=== PATIENT | male | born 1955 | race Caucasian/White ===

== ENCOUNTER 2016-12-18 17:44 | Observation (INO) | payer OTHER ==
[2016-12-18] VITALS (7 sets, daily range): BP systolic 130–154; BP diastolic 68–98; PULSE 92–104; RESP 18–20; TEMP 97.9–99.1; O2SAT 91–97
[~2016-12-18] VITALS: Ht 182.9 cm; Wt 68.2 kg
[~2016-12-18 17:44] MED LIST: BACT2OIN TOP; CLIN150 PO; HALO1TAB25 PO; LITH450T PO; NORT50CA PO
[2016-12-18] MEDS ORDERED: methylPREDNISolone SOD SUCC 125 MG/2 ML VIAL IVP ONE (19:30)
[2016-12-18] MEDS ORDERED: SODIUM CHLORIDE 0.9% FLUSH 10 ML FLUSH IVF PRN (19:30)
[2016-12-18 19:53] LABS: AUTOMATED NEUTROPHIL # 4.8 TH/MM3 (1.8-7.7); BASOPHIL # 0.1 TH/MM3 (0-0.2); BASOPHIL % 0.7 % (0.0-2.0); EOSINOPHIL # 0.1 TH/MM3 (0-0.4); EOSINOPHIL % 1.3 % (0.0-4.0); HEMATOCRIT 44.2 % (39.0-51.0); HEMO FLAGS DIFF FINAL; LYMPH % 28.8 % (9.0-44.0); LYMPHOCYTE # 2.3 TH/MM3 (1.0-4.8); MEAN CELL VOLUME 91.6 FL (80.0-100.0); MEAN CORPUSCULAR HEMOGLOBIN 31.5 PG (27.0-34.0); MEAN CORPUSCULAR HGB CONC 34.4 % (32.0-36.0); MONO % 9.1 % (0.0-8.0); NEUT % 60.1 % (16.0-70.0); PLATELET COUNT 187 TH/MM3 (150-450); RED BLOOD COUNT 4.82 MIL/MM3 (4.50-5.90); RED CELL DISTRIBUTION WIDTH 13.2 % (11.6-17.2)
--- NOTE | 2016-12-18 19:53 | PD ---
HPI Chief Complaint: Chest Pain Time Seen by Provider: 19:12 Travel History International Travel<30 days: No Contact w/Intl Traveler<30days: No Traveled to known affect area: No History of Present Illness HPI He shouldn't is a 61-year-old male who comes in complaining of chest pain, shortness of breath, cough for the past 3 weeks. Says he came in tonight because he is tired of it. He says the pain is in the middle of his chest and spreads out towards the sides. He says that the pain comes on randomly and does not seem to be related to any specific action. He says the same occurs with the shortness of breath. He reports a cough that is productive of phlegm. He says that he felt like he had a fever yesterday, but he did not take his temperature. He denies any leg swelling, but says he has chronic pain in his legs. He uses an inhaler at home, but says this has not really been helping. PFSH Past Medical History Bipolar Disorder: Yes Cardiovascular Problems: Yes COPD: Yes Diminished Hearing: Yes ([facility]) Past Surgical History Surgical History: No Previous Surgery Social History Alcohol Use: No Tobacco Use: Yes (2 PPD) Substance Use: No Allergies-Medications (Allergen,Severity, Reaction): Coded Allergies: No Known Allergies (Unverified , 12/18/16) Reported Meds & Prescriptions Reported Meds & Active Scripts Active Mupirocin 2% Oint (22 gm) (Mupirocin) 2 % Oin 1 Applic TOP BID 14 Days APPLY TO AFFECTED AREA(S) Cleocin (Clindamycin HCl) 150 Mg Cap 2 Tab PO QID Reported Nortriptyline Hcl (Nortriptyline HCl) 50 Mg Cap 50 Mg PO HS Haldol (Haloperidol) 2 Mg Tab 2 Mg PO QID PRN Eskalith 450 Mg Tab Cr ([place] Carbonate) 450 Mg Tabcr 450 Mg PO QID Review of Systems Except as stated in HPI: all other systems reviewed are Neg General / Constitutional: Positive: Fever, No: Chills HENT: No: Headaches, Lightheadedness Cardiovascular: Positive: Chest Pain or Discomfort Respiratory: Positive: Cough, Shortness of Breath, Wheezing Gastrointestinal: No: Nausea, Vomiting, Abdominal Pain Musculoskeletal: Positive: Pain, No: Edema Skin: No Rash, No Change in Pigmentation Neurologic: No: Weakness, Dizziness Physical Exam Narrative GENERAL: Awake and alert, in no acute distress. SKIN: Focused skin assessment warm/dry. HEAD: Atraumatic. Normocephalic. EYES: Pupils equal and round. No scleral icterus. ENT: Mucous membranes pink and moist. NECK: Trachea midline. No JVD. CARDIOVASCULAR: Regular rate and rhythm. No murmur appreciated. RESPIRATORY: No accessory muscle use. Breath sounds equal bilaterally. Wheezing and coarse breath sounds throughout both lungs. GASTROINTESTINAL: Abdomen soft, non-tender, nondistended. MUSCULOSKELETAL: No obvious deformities. No clubbing. No cyanosis. No edema. NEUROLOGICAL: Awake and alert. No obvious cranial nerve deficits. Motor grossly within normal limits. Normal speech. PSYCHIATRIC: Appropriate mood and affect; insight and judgment normal. Data Data Last Documented VS Vital Signs Date Time Temp Pulse Resp B/P Pulse Ox O2 Delivery O2 Flow Rate FiO2 12/18/16 20:30 92 18 132/74 95 Room Air 12/18/16 17:47 99.1 Orders Electrocardiogram (12/18/16 17:54) Complete Blood Count With Diff (12/18/16 17:54) Basic Metabolic Panel (Bmp) (12/18/16 17:54) Ckmb (Isoenzyme) Profile (12/18/16 17:54) Troponin I (12/18/16 17:54) B-Type Natriuretic Peptide (12/18/16 19:19) Act Partial Throm Time (Ptt) (12/18/16 19:19) Prothrombin Time / Inr (Pt) (12/18/16 19:19) Iv Access Insert/Monitor (12/18/16 19:19) Ecg Monitoring (12/18/16 19:19) Oximetry (12/18/16 19:19) Oxygen Administration (12/18/16 19:19) Chest, Pa & Lat (12/18/16 19:19) Sodium Chloride 0.9% Flush (Ns Flush) (12/18/16 19:30) Methylprednisolone So Succ Inj (Solumedr (12/18/16 19:30) Albuterol-Ipratropium Neb (Duoneb Neb) (12/18/16 19:30) CKMB (12/18/16 19:35) CKMB% (12/18/16 19:35) Diet Regular Basic (12/19/16 Breakfast) Vital Signs (Adult) NEEL.Q4H (12/18/16 20:24) Resp Oxygen Link C Titrat 1-4 L (12/18/16 ) Troponin I (12/19/16 02:00) Troponin I (12/19/16 08:00) Methylprednisolone So Succ Inj (Solumedr (12/19/16 02:00) Albuterol-Ipratropium Neb (Duoneb Neb) (12/19/16 00:00) Albuterol Neb (Albuterol Neb) (12/18/16 20:30) Acetaminophen (Tylenol) (12/18/16 20:30) Ondansetron Inj (Zofran Inj) (12/18/16 20:30) Levofloxacin 750 Mg Premix Inj (Levaquin (12/18/16 20:45) Admit Order (Ed Use Only) (12/18/16 ) Labs Laboratory Tests Test 12/18/16 19:35 White Blood Count 8.0 TH/MM3 Red Blood Count 4.82 MIL/MM3 Hemoglobin 15.2 GM/DL Hematocrit 44.2 % Mean Corpuscular Volume 91.6 FL Mean Corpuscular Hemoglobin 31.5 PG Mean Corpuscular Hemoglobin 34.4 % Concent Red Cell Distribution Width 13.2 % Platelet Count 187 TH/MM3 Mean Platelet Volume 8.3 FL Neutrophils (%) (Auto) 60.1 % Lymphocytes (%) (Auto) 28.8 % Monocytes (%) (Auto) 9.1 % Eosinophils (%) (Auto) 1.3 % Basophils (%) (Auto) 0.7 % Neutrophils # (Auto) 4.8 TH/MM3 Lymphocytes # (Auto) 2.3 TH/MM3 Monocytes # (Auto) 0.7 TH/MM3 Eosinophils # (Auto) 0.1 TH/MM3 Basophils # (Auto) 0.1 TH/MM3 CBC Comment DIFF FINAL Differential Comment Prothrombin Time 12.2 SEC Prothromb Time International 1.1 RATIO Ratio Activated Partial 32.4 SEC Thromboplast Time Sodium Level 140 MEQ/L Potassium Level 4.1 MEQ/L Chloride Level 104 MEQ/L Carbon Dioxide Level 29.3 MEQ/L Anion Gap 7 MEQ/L Blood Urea Nitrogen 13 MG/DL Creatinine 1.47 MG/DL Estimat Glomerular Filtration 49 ML/MIN Rate Random Glucose 78 MG/DL Calcium Level 9.3 MG/DL Total Creatine Kinase 235 U/L Creatine Kinase MB 6.1 NG/ML Troponin I LESS THAN 0.02 NG/ML B-Type Natriuretic Peptide 13 PG/ML MDM Medical Decision Making Medical Screen Exam Complete: Yes Emergency Medical Condition: Yes Medical Record Reviewed: Yes Interpretation(s) ECG shows sinus rhythm at 99, no ST elevation or depression. Incomplete right bundle-branch block. Differential Diagnosis COPD exacerbation versus pneumonia versus ACS Narrative Course Patient is a 61-year-old male comes in complaining of shortness of breath and chest pain. Exam shows coarse breath sounds throughout both lungs. IV established, labs sent. 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 Given 3 duo nebs as well as Solu-Medrol. Given aspirin. Labs show no acute abnormalities. Chest x-ray does show left-sided infiltrate. Patient given Levaquin. Patient admitted for further management. Diagnosis Primary Impression: COPD with acute exacerbation Additional Impressions: Chest pain Qualified Code: R07.9 - Chest pain, unspecified type Pneumonia Qualified Code: J18.1 - Pneumonia of left lower lobe due to infectious organism Admitting Information Admitting Physician Requests: Admit Kasey Davison MD Dec 18, 2016 19:53
[2016-12-18] MEDS: RESP: ALBUTEROL 2.5 MG/IPRATROPIUM 0.5 MG NEB (SCH) INH (20:07)
[2016-12-18 20:20] LABS: ANION GAP 7 MEQ/L (5-15); BICARBONATE 29.3 MEQ/L (21.0-32.0); BLOOD UREA NITROGEN 13 MG/DL (7-18); CHLORIDE 104 MEQ/L (98-107); GLOMERULAR FILTRATION RATE 49 ML/MIN (>89); POTASSIUM 4.1 MEQ/L (3.5-5.1); SODIUM (NA) 140 MEQ/L (136-145)
--- NOTE | 2016-12-18 20:20 | RADRPT ---
EXAM DATE/TIME: 12/18/2016 19:53 [facility] COMPARISON: No previous studies available for comparison. INDICATIONS : Cough and chest pain. MEDICAL HISTORY : smoker SURGICAL HISTORY : None. ENCOUNTER: Initial ACUITY: 1 day PAIN SCORE: 7/10 LOCATION: Bilateral upper chest FINDINGS: There is baseline hyperinflation consistent with COPD. There is patchy airspace infiltrate in the lef t lung base. No evidence of effusion. Cardiac contours are satisfactory. There is degenerative change and mild scoliosis in the spine. CONCLUSION: Emphysema. Left base infiltrate. Baldev Quiroz MD on December 18, 2016 at 20:18 Board Certified Radiologist. This report was verified electronically.
[2016-12-18 20:22] LABS: APTT (PATIENT) 32.4 SEC (24.3-30.1); INTERNATIONAL NORMALIZED RATIO 1.1 RATIO; PROTHROMBIN TIME - PATIENT 12.2 SEC (9.8-11.6)
[2016-12-18 20:24] LABS: CREATINE KINASE 235 U/L (39-308)
[2016-12-18] MEDS ORDERED: ACETAMINOPHEN 325 MG TAB PO PRN (20:30)
[2016-12-18] MEDS ORDERED: RESP: ALBUTEROL 1.25 MG/3 ML NEB (PRN) NEB (20:30)
[2016-12-18] MEDS ORDERED: ONDANSETRON HCL 4 MG/2 ML VIAL IV PUSH PRN (20:30)
[2016-12-18 20:36] LABS: CKMB 6.1 NG/ML (0.5-3.6)
[2016-12-18] MEDS ORDERED: LEVOFLOXACIN 750 MG PREMIX INJ 150 ML IV ONE (20:45)
--- NOTE | 2016-12-18 20:45 | HHI.HP ---
[facility] Service [facility] Primary Care Physician Delmy Booker M.D. Admission Diagnosis copd exacerbation Diagnoses: (1) COPD with acute exacerbation Diagnosis: Principal (2) Chest pain Diagnosis: Principal Chief Complaint: sob Travel History International Travel<30 Days: No Contact w/Intl Traveler <30 Da: No Traveled to Known Affected Are: No History of Present Illness patient is a 61 y/o male with history of COPD, chronic smoker and still smoking two packs a day, presented to ER with one week history of sob. he says that his sob has been getting worse. he had some dry cough with no reported fever or chills. he's also complaining of some epigastric chest pain with some radiation to both sides of the chest.he says that his chest pain is worse with the cough.he had some nausea and dizziness earlier.after receiving neb treatment he said that he was feeling better. Review of Systems Constitutional: COMPLAINS OF: Dizziness, DENIES: Fever, Weight loss, Chills, Night Sweats Eyes: DENIES: Blurred vision, Diplopia, Vision loss, Double Vision Ears, nose, mouth, throat: DENIES: Tinnitus, Vertigo, Throat pain, Epistaxis Respiratory: COMPLAINS OF: Wheezing, Shortness of breath, DENIES: Apneas, Cough, Snoring, Hemoptysis, Sputum production Cardiovascular: COMPLAINS OF: Chest pain, DENIES: Palpitations, Syncope, Dyspnea on Exertion, PND, Lower Extremity Edema, Orthopnea, Claudication Gastrointestinal: COMPLAINS OF: Nausea, DENIES: Abdominal pain, Black stools, Bloody stools, Constipation, Diarrhea, Vomiting, Difficulty Swallowing, Anorexia Genitourinary: DENIES: Urinary frequency, Urgency, Hematuria, Dysuria Musculoskeletal: DENIES: Joint pain, Muscle aches, Stiffness, Joint Swelling Integumentary: DENIES: Rash Neurologic: DENIES: Abnormal gait, Headache, Localized weakness, Paresthesias, Seizures, Speech Problems, Tremor, Poor Balance Psychiatric: DENIES: Anxiety, Confusion, Mood changes, Depression, Hallucinations, Agitation, Suicidal Ideation, Homicidal Ideation, Delusions Past Family Social History Past Medical History COPD bipolar disorder Past Surgical History none Reported Medications Mupirocin 2% Oint (22 gm) (Mupirocin) 2 % Oin 1 Applic TOP BID 14 Days APPLY TO AFFECTED AREA(S) Cleocin (Clindamycin HCl) 150 Mg Cap 2 Tab PO QID Nortriptyline Hcl (Nortriptyline HCl) 50 Mg Cap 50 Mg PO HS Haldol (Haloperidol) 2 Mg Tab 2 Mg PO QID PRN Eskalith 450 Mg Tab Cr ([place] Carbonate) 450 Mg Tabcr 450 Mg PO QID Allergies: Coded Allergies: No Known Allergies (Unverified , 12/18/16) Active Ordered Medications Current Medications Sodium Chloride (NS Flush) 2 ml UNSCH PRN IVF FLUSH AFTER USING IV ACCESS; Start 12/18/16 at 19:30 Methylprednisolone Sodium Succinate (SoluMEDROL INJ) 125 mg ONCE ONCE IVP Last administered on 12/18/16 19:40; Start 12/18/16 at 19:30; Stop 12/18/16 at 19: 31; Status DC Albuterol/ Ipratropium (Duoneb Neb) 1 ampule Q15M INH Last administered on 20:07; Start 12/18/16 at 19:30; Stop 12/18/16 at 20:01; Status DC Family History heart disease in brother. Social History smokes two packs a day- doesn't drink. Physical Exam Vital Signs Vital Signs Date Time Temp Pulse Resp B/P Pulse Ox O2 Delivery O2 Flow Rate FiO2 12/18/16 19:29 96 Room Air 12/18/16 19:29 Room Air 12/18/16 17:47 99.1 104 20 154/93 93 Room Air Physical Exam GENERAL: with some sob and wheezing. SKIN: No rashes, ecchymoses or lesions. Cool and dry. HEAD: Atraumatic. Normocephalic. No temporal or scalp tenderness. EYES: Pupils equal round and reactive. Extraocular motions intact. No scleral icterus. No injection or drainage. ENT: Nose without bleeding, purulent drainage or septal hematoma. Throat without erythema, tonsillar hypertrophy or exudate. Uvula midline. Airway patent. NECK: Trachea midline. No JVD or lymphadenopathy. Supple, nontender, no meningeal signs. CARDIOVASCULAR: Regular rate and rhythm without murmurs, gallops, or rubs. RESPIRATORY: bilateral wheezing with prolonged expiration. GASTROINTESTINAL: Abdomen soft, non-tender, nondistended. No hepato-splenomegaly , or palpable masses. No guarding. MUSCULOSKELETAL: Extremities without clubbing, cyanosis, or edema. No joint tenderness, effusion, or edema noted. No calf tenderness. Negative Homans sign bilaterally. NEUROLOGICAL: Awake and alert. Cranial nerves II through XII intact. Motor and sensory grossly within normal limits. Five out of 5 muscle strength in all muscle groups. Normal speech. Laboratory Laboratory Tests Test 12/18/16 19:35 White Blood Count 8.0 Red Blood Count 4.82 Hemoglobin 15.2 Hematocrit 44.2 Mean Corpuscular Volume 91.6 Mean Corpuscular Hemoglobin 31.5 Mean Corpuscular Hemoglobin 34.4 Concent Red Cell Distribution Width 13.2 Platelet Count 187 Mean Platelet Volume 8.3 Neutrophils (%) (Auto) 60.1 Lymphocytes (%) (Auto) 28.8 Monocytes (%) (Auto) 9.1 Eosinophils (%) (Auto) 1.3 Basophils (%) (Auto) 0.7 Neutrophils # (Auto) 4.8 Lymphocytes # (Auto) 2.3 Monocytes # (Auto) 0.7 Eosinophils # (Auto) 0.1 Basophils # (Auto) 0.1 CBC Comment DIFF FINAL Differential Comment Prothrombin Time 12.2 Prothromb Time International 1.1 Ratio Activated Partial 32.4 Thromboplast Time Sodium Level 140 Potassium Level 4.1 Chloride Level 104 Carbon Dioxide Level 29.3 Anion Gap 7 Blood Urea Nitrogen 13 Creatinine 1.47 Estimat Glomerular Filtration 49 Rate Random Glucose 78 Calcium Level 9.3 Result Diagram: 12/18/16193412/18/161934 Imaging EKG; sinus arrhythmia and incomplete RBBB CXR; emphysema with left base infiltrate Assessment and Plan Assessment and Plan A/P - acute exacerbation of COPD/ LLL pneumonia ( community-acquired) continue with neb treatment and IV steroid- start IV antibiotics- keep on oxygen to keep O2 sat > 90%- counselled on smoking cessation. -chest pain- likely due to COPD/ cough; will trend the cardiac enzymes -renal insufficiency with unknown duration- start IV fluid and monitor the renal function -bipolar disorder; resume home meds -DVT prophylaxis with Lovenox Discussed Condition With ER physician and the patient. Problem Qualifiers (1) Chest pain: Qualified Code: R07.9 - Chest pain, unspecified type Jean Paul Cameron MD Dec 18, 2016 20:45
[2016-12-18] MEDS ORDERED: SODIUM CHLOR 0.9% 1000 ML INJ 1,000 ML IV ONE (21:00)
[2016-12-18] MEDS ORDERED: HALOPERIDOL 2 MG TAB PO PRN (21:00)
[2016-12-18] MEDS ORDERED: NORTRIPTYLINE HCL 50 MG PO SCH (21:00)
[2016-12-18] MEDS: ENOXAPARIN SODIUM 40 MG/0.4 ML SYRINGE SQ SCH (21:49)
[2016-12-18] MEDS: LITHIUM CARBONATE 450 MG CONTROLLED RELEASE TAB PO SCH (22:06)
[2016-12-18] MEDS: NORTRIPTYLINE HCL 25 MG CAP PO SCH (22:06)
[2016-12-18] MEDS: RESP: ALBUTEROL 2.5 MG/IPRATROPIUM 0.5 MG NEB (SCH) NEB (23:14)
[2016-12-19] VITALS (9 sets, daily range): BP systolic 110–134; BP diastolic 77–88; PULSE 87–104; RESP 16–20; TEMP 96.7–98.6; O2SAT 91–97
[2016-12-19] MEDS: methylPREDNISolone SOD SUCC 40 MG/1 ML VIAL IV PUSH SCH ×3 (01:18→18:56)
[2016-12-19] MEDS: RESP: ALBUTEROL 2.5 MG/IPRATROPIUM 0.5 MG NEB (SCH) NEB ×5 (02:35→19:56)
[2016-12-19] MEDS ORDERED: MENTHOL LOZENGE BUCCAL PRN (08:30)
--- NOTE | 2016-12-19 08:39 | HHI.PR ---
Subjective Remarks Complains of sore throat. Dry cough. No active complaint of chest pain. States that breathing treatments does not help too much. He states that he does not use scheduled inhaler and only uses as needed. He does not use oxygen at home. He had a recent MRI of the lungs as an outpatient to follow up with his emphysema. Objective Vitals Vital Signs Date Time Temp Pulse Resp B/P Pulse Ox O2 Delivery O2 Flow Rate FiO2 12/19/16 08:25 95 21 12/19/16 04:31 98.6 102 20 110/80 96 12/18/16 23:49 100 12/18/16 22:31 97.9 98 20 139/80 97 12/18/16 22:06 99 134/71 94 Nasal Cannula 3 12/18/16 21:20 102 18 130/68 91 Room Air 12/18/16 20:30 92 18 132/74 95 Room Air 12/18/16 19:29 96 Room Air 12/18/16 19:29 Room Air 12/18/16 17:47 99.1 104 20 154/93 93 Room Air I/O 12/18/16 12/18/16 12/18/16 12/19/16 12/19/16 12/19/16 07:00 15:00 23:00 07:00 15:00 23:00 Intake Total 50 ml Balance 50 ml Intake IV Total 50 ml Result Diagram: 12/18/16193412/18/161934 Objective Remarks GENERAL: This is a well-nourished, well-developed patient, in no apparent distress. CARDIOVASCULAR: Regular rate and rhythm RESPIRATORY: diminish breath sounds bilaterally, few left upper lobe rhonchi. GASTROINTESTINAL: Abdomen soft, non-tender,nondistended. Normal active bowel sounds MUSCULOSKELETAL: Extremities without clubbing, cyanosis, or edema. NEURO: Alert & Oriented x4 to person, place, time, situation. Moves all ext x4 A/P Problem List: (1) COPD with acute exacerbation ICD Code: J44.1 Status: Acute (2) Chest pain ICD Code: R07.9 Status: Acute (3) Community acquired pneumonia ICD Code: J18.9 Status: Acute Assessment and Plan 1. acute exacerbation of COPD WITH LLL pneumonia ( community-acquired) continue with neb treatment and IV steroid- currently on IV Levaquin and will switch to oral Levaquin the morning. keep on oxygen to keep O2 sat > 90%- counselled on smoking cessation. Patient states that his primary care physician in order recent MRI of the chest to evaluate for his history of emphysema. 2. chest pain- likely due to COPD/ cough; serial cardiac enzymes are negative. 3. renal insufficiency with unknown duration- start IV fluid and monitor the renal function, repeat BUN/creatinine the morning. 4. bipolar disorder; resume home meds, lithium, monitor renal function closely while on lithium. 5. DVT prophylaxis with Lovenox Discharge Planning Possible discharge to home in the morning if O2 sat remained stable and if patient continues to clinically improve. Problem Qualifiers (1) Chest pain: Qualified Code: R07.9 - Chest pain, unspecified type Jenni Miranda MD Dec 19, 2016 08:39
[2016-12-19] MEDS ORDERED: RESP: ALBUTEROL 2.5 MG/3 ML NEB (PRN) INH (08:45)
[2016-12-19] MEDS: LITHIUM CARBONATE 450 MG CONTROLLED RELEASE TAB PO SCH ×4 (09:32→21:35)
[2016-12-19 10:22] LABS: ANION GAP 7 MEQ/L (5-15); BICARBONATE 26.8 MEQ/L (21.0-32.0); BLOOD UREA NITROGEN 13 MG/DL (7-18); CHLORIDE 110 MEQ/L (98-107); GLOMERULAR FILTRATION RATE 54 ML/MIN (>89); POTASSIUM 4.1 MEQ/L (3.5-5.1); SODIUM (NA) 144 MEQ/L (136-145)
--- NOTE | 2016-12-19 13:01 | EKG ---
Date Performed: 12/18/2016 Time Performed: 17:58:35 PTAGE: 61 years EKG: Sinus rhythm WITH SINUS ARRHYTHMIA POSSIBLE RIGHT ATRIAL ENLARGEMENT INCOMPLETE RIGHT BUNDLE BRANCH BLOCK BORDERL INE ECG NO PREVIOUS TRACING DOCTOR: Dallas Hsieh Interpretating Date/Time 12/19/2016 12:59:40
[2016-12-19] MEDS ORDERED: LEVOFLOXACIN 500 MG PREMIX INJ 100 ML IV SCH (21:00)
[2016-12-19] MEDS: ENOXAPARIN SODIUM 40 MG/0.4 ML SYRINGE SQ SCH (21:34)
[2016-12-19] MEDS: NORTRIPTYLINE HCL 25 MG CAP PO SCH (21:34)
[2016-12-20 01:40] VITALS: PULSE 99
[2016-12-20] MEDS: methylPREDNISolone SOD SUCC 40 MG/1 ML VIAL IV PUSH SCH ×2 (02:17→08:37)
[2016-12-20 04:18] VITALS: BP 125/70; PULSE 88; RESP 20; TEMP 98.2; O2SAT 91
[2016-12-20] MEDS: RESP: ALBUTEROL 2.5 MG/IPRATROPIUM 0.5 MG NEB (SCH) NEB (07:39)
[2016-12-20 07:41] VITALS: O2SAT 92
[2016-12-20 08:00] VITALS: BP 128/70; PULSE 81; RESP 20; TEMP 97.5; O2SAT 93
[2016-12-20] MEDS: LITHIUM CARBONATE 450 MG CONTROLLED RELEASE TAB PO SCH (08:27)
[2016-12-20] MEDS ORDERED: VENTAER INH (08:41)
[2016-12-20] MEDS ORDERED: LEVA750T PO (08:41)
[2016-12-20] MEDS ORDERED: PRED20 PO (08:41)
--- NOTE | 2016-12-20 08:43 | HHI.DCPOC ---
Discharge Care Plan Diagnosis: (1) Community acquired pneumonia (2) COPD with acute exacerbation Your Health Problems Are: Shortness of Breath Goals to Promote Your Health * To prevent worsening of your condition and complications * To maintain your health at the optimal level Directions to Meet Your Goals Take your medications as prescribed Follow your dietary instruction Follow activity as directed Complete your antibiotics as prescribed. Continue home inhalers. Keep your appointments as scheduled Take your immunizations and boosters as scheduled If your symptoms worsen call your PCP, if no PCP go to Urgent Care Center or Emergency Room Smoking is Dangerous to Your Health. Avoid second hand smoke Call the 24-hour hour crisis hotline for domestic abuse at Jenni Miranda MD Dec 20, 2016 08:43
--- NOTE | 2016-12-20 08:48 | HHI.DS ---
cc: Delmy Booker MD Discharge Summary Admission Date Dec 18, 2016 at 20:48 Discharge Date: Dec 20, 2016 Admitting Diagnosis copd exacerbation (1) Community acquired pneumonia ICD Code: J18.9 Diagnosis: Principal (2) COPD with acute exacerbation ICD Code: J44.1 Diagnosis: Principal (3) Chest pain ICD Code: R07.9 Diagnosis: Secondary Procedures none Brief History - From Admission Obtained from admission 61 y/o male with history of COPD, chronic smoker and still smoking two packs a day, presented to ER with one week history of sob. he says that his sob has been getting worse. he had some dry cough with no reported fever or chills. he' s also complaining of some epigastric chest pain with some radiation to both sides of the chest.he says that his chest pain is worse with the cough.he had some nausea and dizziness earlier.after receiving neb treatment he said that he was feeling better. CBC/BMP: 12/18/16 1935 12/19/16 0857 Significant Findings Laboratory Tests Test 12/18/16 12/19/16 12/19/16 19:35 03:29 08:57 Monocytes (%) (Auto) 9.1 % (0.0-8.0) Prothrombin Time 12.2 SEC (9.8-11.6) Activated Partial 32.4 SEC Thromboplast Time (24.3-30.1) Creatinine 1.47 MG/DL 1.34 MG/DL (0.60-1.30) (0.60-1.30) Estimat Glomerular Filtration 49 ML/MIN (>89) 54 ML/MIN (>89) Rate Creatine Kinase MB 6.1 NG/ML (0.5-3.6) Troponin I LESS THAN 0.02 LESS THAN 0.02 LESS THAN 0.02 NG/ML NG/ML NG/ML (0.02-0.05) (0.02-0.05) (0.02-0.05) Chloride Level 110 MEQ/L (98-107) Random Glucose 171 MG/DL (74-106) Imaging Last Impressions Chest X-Ray 12/18/161918 Signed Impressions: Service Date/Time: Sunday, December 18, 2016 19:53 - CONCLUSION: Emphysema. Left base infiltrate. Baldev Quiroz MD PE at Discharge GENERAL: This is a well-nourished, well-developed patient, in no apparent distress. CARDIOVASCULAR: Regular rate and rhythm RESPIRATORY: diminish breath sounds bilaterally base, relatively clear to auscultation bilaterally GASTROINTESTINAL: Abdomen soft, non-tender,nondistended. Normal active bowel sounds MUSCULOSKELETAL: Extremities without clubbing, cyanosis, or edema. NEURO: Alert & Oriented x4 to person, place, time, situation. Moves all ext x4 Pt update on day of discharge Patient states that he is feeling good. Breathing definitely improved since coming into the emergency room. He wants to go home. His also requesting a work release in 1 week until he fully recovers. Hospital Course 61-year-old white male who was admitted for acute exacerbation of COPD with community-acquired pneumonia responded well with IV Solu-Medrol, bronchodilators , antibiotics Levaquin. Should he was placed on observation and his oxygen saturation has been stable and on discharge has been 92% on room air. He is instructed to continue with 7 more days of antibiotics Levaquin along with 3 more days of prednisone 20 mg by mouth daily. He states that he does have home inhalers. Prescription for albuterol inhalers also written upon discharge. At this time, he has a maximum benefit from hospitalization and is ready to be discharged to home with outpatient follow-up. Pt Condition on Discharge: Good Discharge Disposition: Discharge Home Discharge Time: <= 30 minutes Discharge Instructions DIET: Follow Instructions for: As Tolerated, No Restrictions Activities you can perform: Regular-No Restrictions Follow up Referrals: PCP Follow-up New Medications: Albuterol 18 GM Inh (Ventolin Hfa 18 GM Inh) 90 Mcg/Act Aer 2 PUFF INH Q4H PRN SHORTNESS OF BREATH #1 Ref 0 INHALER Levofloxacin (Levaquin) 750 Mg Tab 750 MG PO DAILY Infection #7 Ref 0 TAB Prednisone (Prednisone) 20 Mg Tab 20 MG PO DAILY 20 MG daily x 3 days Inflammation #3 Ref 0 TAB Continued Medications: Haloperidol (Haldol) 2 Mg Tab 2 MG PO QID PRN BIPOLAR TAB [place] Carbonate (Eskalith 450 Mg Tab Cr) 450 Mg Tabcr 450 MG PO QID TABCR Nortriptyline Hcl (Nortriptyline Hcl) 50 Mg Cap 50 MG PO HS CAP Discontinued Medications: Clindamycin Hcl (Cleocin) 150 Mg Cap 2 TAB PO QID #80 CAP Mupirocin 2% Oint (22 gm) (Mupirocin 2% Oint (22 gm)) 2 % Oin 1 APPLIC TOP BID APPLY TO AFFECTED AREA(S) Days 14 TUBE Jenni Miranda MD Dec 20, 2016 08:48
[2016-12-20 09:27] VITALS: PULSE 87
[2016-12-20] MEDS ORDERED: LEVOFLOXACIN 750 MG TAB PO SCH (21:00)
== END 2016-12-20 10:14 | disposition home or self-care (01) ==
LOC: NEPE 17:44 → NEDA 20:48 → NEPFCDU 22:27
PROVIDERS: ADMIT Family Medicine; ATTEND Family Medicine
DX: J44.0 Chronic obstructive pulmonary disease with (acute) lower respiratory infection (principal); J18.9 Pneumonia, unspecified organism; J44.1 Chronic obstructive pulmonary disease with (acute) exacerbation; R07.9 Chest pain, unspecified; F31.9 Bipolar disorder, unspecified; F17.200 Nicotine dependence, unspecified, uncomplicated; N28.9 Disorder of kidney and ureter, unspecified; H91.90 Unspecified hearing loss, unspecified ear; Z79.51 Long term (current) use of inhaled steroids
CPT/HCPCS: 71020; 80048; 82550; 82552; 83880; 84484; 85025; 85610; 85730; 93005; 94640; 94664; 96374; 99285; G0378; J1650; J1956; J2920; J2930; J7030

== ENCOUNTER 2017-03-21 16:15 | Inpatient (IN) | payer OTHER, MEDICARE ==
[~2017-03-21] VITALS: Ht 182.9 cm; Wt 69.7 kg
[~2017-03-21 16:15] MED LIST changes: -BACT2OIN TOP; -CLIN150 PO; +LEVA750T PO; +PRED20 PO; +VENTAER INH
[2017-03-21 16:17] VITALS: BP 130/77; PULSE 86; RESP 20; TEMP 98.9; O2SAT 94
--- NOTE | 2017-03-21 16:31 | PD ---
Physical Exam Time Seen by Provider: 16:29 Narrative 62yo M presents voluntarily for psych evaluation for SI and HI. Says his mood is very lucid at this time. Hx of bipolar. Recently switched from [place] to Zyprexa. Denies illicit drug use or alcohol use. Patient seen in triage. VS reviewed. Awaiting bed placement. Data Data Last Documented VS Vital Signs Date Time Temp Pulse Resp B/P Pulse Ox O2 Delivery O2 Flow Rate FiO2 03/21/17 16:17 98.9 86 20 130/77 94 Room Air MDM Supervised Visit with ELIZABETH: Bailey Cesar Mar 21, 2017 16:31
[2017-03-21 16:41] VITALS: BP 145/82; PULSE 77; RESP 18; TEMP 98.7; O2SAT 99
--- NOTE | 2017-03-21 16:54 | PD ---
HPI Chief Complaint: Psychiatric Symptoms Time Seen by Provider: 16:35 Travel History International Travel<30 days: No Contact w/Intl Traveler<30days: No Traveled to known affect area: No History of Present Illness HPI This is a 62-year-old male with history of bipolar disorder. He presents voluntarily requesting psychiatric evaluation. Over the past few months the patient has been feeling increasingly suicidal. He has also had paranoid thoughts regards to other people. He feels that everyone is out to hurt him and lately he has been carrying a knife in order to help protect himself. The patient reports that a few months ago his physician Dr. Bundy switched his lithium/Haldol regimen to Zyprexa. Symptoms seem to have been worsening since then. He denies any drug or alcohol use, hallucinations. Denies recent travel , recent illness. He has no medical complaints at this time. PFSH Past Medical History Blood Disorders: No Bipolar Disorder: Yes Cancer: No Cardiovascular Problems: Yes Chest Pain: Yes COPD: Yes Diminished Hearing: Yes ([place]) Endocrine: No Genitourinary: No Immune Disorder: No Musculoskeletal: Yes (arthritis ) Neurologic: No Psychiatric: No Reproductive: No Respiratory: Yes Past Surgical History Surgical History: No Previous Surgery Other Surgery: No Social History Alcohol Use: No Tobacco Use: Yes (2 PPD) Substance Use: No Allergies-Medications (Allergen,Severity, Reaction): Coded Allergies: No Known Allergies (Unverified , 12/18/16) Reported Meds & Prescriptions Reported Meds & Active Scripts Active Prednisone 20 Mg Tab 20 Mg PO DAILY 20 MG daily x 3 days Ventolin Hfa 18 GM Inh (Albuterol Sulfate) 90 Mcg/Act Aer 2 Puff INH Q4H PRN Review of Systems Except as stated in HPI: all other systems reviewed are Neg Physical Exam Narrative GENERAL: Pleasant well-developed well-nourished male in no acute distress resting comfortably on hospital bed. SKIN: Warm and dry. HEAD: Atraumatic. Normocephalic. EYES: Pupils equal and round. No scleral icterus. No injection or drainage. ENT: No nasal bleeding or discharge. Mucous membranes pink and moist. NECK: Trachea midline. No JVD. CARDIOVASCULAR: Regular rate and rhythm. No murmur appreciated. RESPIRATORY: No accessory muscle use. Clear to auscultation. Breath sounds equal bilaterally. GASTROINTESTINAL: Abdomen soft, non-tender, nondistended. Hepatic and splenic margins not palpable. MUSCULOSKELETAL: No obvious deformities. No clubbing. No cyanosis. No edema. NEUROLOGICAL: Awake and alert. No obvious cranial nerve deficits. Motor grossly within normal limits. Normal speech. PSYCHIATRIC: Appropriate mood and affect; insight and judgment normal. Data Data Last Documented VS Vital Signs Date Time Temp Pulse Resp B/P Pulse Ox O2 Delivery O2 Flow Rate FiO2 03/21/17 16:41 98.7 77 18 145/82 99 03/21/17 16:17 Room Air Orders Complete Blood Count With Diff (03/21/17 16:49) Comprehensive Metabolic Panel (03/21/17 16:49) Psych Screen (03/21/17 16:49) Drug Screen, Random Urine (03/21/17 16:49) Alcohol (Ethanol) (03/21/17 16:49) Labs Laboratory Tests Test 03/21/17 16:55 White Blood Count 6.3 TH/MM3 Red Blood Count 4.53 MIL/MM3 Hemoglobin 13.8 GM/DL Hematocrit 41.1 % Mean Corpuscular Volume 90.6 FL Mean Corpuscular Hemoglobin 30.4 PG Mean Corpuscular Hemoglobin 33.6 % Concent Red Cell Distribution Width 13.7 % Platelet Count 191 TH/MM3 Mean Platelet Volume 8.1 FL Neutrophils (%) (Auto) 66.5 % Lymphocytes (%) (Auto) 20.4 % Monocytes (%) (Auto) 10.6 % Eosinophils (%) (Auto) 1.7 % Basophils (%) (Auto) 0.8 % Neutrophils # (Auto) 4.2 TH/MM3 Lymphocytes # (Auto) 1.3 TH/MM3 Monocytes # (Auto) 0.7 TH/MM3 Eosinophils # (Auto) 0.1 TH/MM3 Basophils # (Auto) 0.0 TH/MM3 CBC Comment DIFF FINAL Differential Comment Sodium Level 141 MEQ/L Potassium Level 3.6 MEQ/L Chloride Level 109 MEQ/L Carbon Dioxide Level 25.6 MEQ/L Anion Gap 6 MEQ/L Blood Urea Nitrogen 18 MG/DL Creatinine 1.30 MG/DL Estimat Glomerular Filtration 56 ML/MIN Rate Random Glucose 127 MG/DL Calcium Level 8.8 MG/DL Total Bilirubin 0.5 MG/DL Aspartate Amino Transf 23 U/L (AST/SGOT) Alanine Aminotransferase 24 U/L (ALT/SGPT) Alkaline Phosphatase 91 U/L Total Protein 6.7 GM/DL Albumin 3.4 GM/DL Ethyl Alcohol Level LESS THAN 3 MG/DL MDM Medical Decision Making Medical Screen Exam Complete: Yes Emergency Medical Condition: Yes Medical Record Reviewed: Yes Differential Diagnosis Bipolar disorder, acute psychosis, schizophrenia, substance induced mood disorder, major depressive disorder Narrative Course This is a 62-year-old male with history of bipolar disorder. He reports over the past few months he has been feeling increasingly paranoid and suicidal. This seems to have stemmed from his medication regimen being changed from lithium/Haldol to Zyprexa. Mental health screening discussed with the patient. Psychiatric screen ordered. Medically cleared for psychiatric disposition. Diagnosis Primary Impression: Paranoia Additional Impression: Suicidal ideation Carson Blanco Mar 21, 2017 16:53
[2017-03-21 17:39] LABS: AUTOMATED NEUTROPHIL # 4.2 TH/MM3 (1.8-7.7); BASOPHIL % 0.8 % (0.0-2.0); EOSINOPHIL # 0.1 TH/MM3 (0-0.4); EOSINOPHIL % 1.7 % (0.0-4.0); HEMATOCRIT 41.1 % (39.0-51.0); HEMO FLAGS DIFF FINAL; LYMPH % 20.4 % (9.0-44.0); LYMPHOCYTE # 1.3 TH/MM3 (1.0-4.8); MEAN CELL VOLUME 90.6 FL (80.0-100.0); MEAN CORPUSCULAR HEMOGLOBIN 30.4 PG (27.0-34.0); MEAN CORPUSCULAR HGB CONC 33.6 % (32.0-36.0); MONO % 10.6 % (0.0-8.0); NEUT % 66.5 % (16.0-70.0); PLATELET COUNT 191 TH/MM3 (150-450); RED BLOOD COUNT 4.53 MIL/MM3 (4.50-5.90); RED CELL DISTRIBUTION WIDTH 13.7 % (11.6-17.2); WHITE BLOOD COUNT 6.3 TH/MM3 (4.0-11.0)
[2017-03-21 18:09] LABS: ALT (GPT) 24 U/L (12-78); ANION GAP 6 MEQ/L (5-15); AST (GOT) 23 U/L (15-37); BICARBONATE 25.6 MEQ/L (21.0-32.0); BLOOD UREA NITROGEN 18 MG/DL (7-18); CHLORIDE 109 MEQ/L (98-107); GLOMERULAR FILTRATION RATE 56 ML/MIN (>89); POTASSIUM 3.6 MEQ/L (3.5-5.1); SODIUM (NA) 141 MEQ/L (136-145)
[2017-03-21 18:12] LABS: ALKALINE PHOSPHATASE 91 U/L (45-117); TOTAL BILIRUBIN ADULT 0.5 MG/DL (0.2-1.0)
[2017-03-21] MEDS ORDERED: ZYPR20TA PO (20:24)
[2017-03-21] MEDS ORDERED: TRAZ100T6 PO (20:24)
[2017-03-21 20:40] VITALS: BP 115/62; PULSE 86; RESP 18; TEMP 97.4; O2SAT 95
[2017-03-21 21:18] LABS: AMPHETAMINE, URINE NEG (NEG); BARBITURATES, URINE NEG (NEG); COCAINE, URINE NEG (NEG)
[2017-03-21 22:00] VITALS: BP 138/78; PULSE 85; RESP 18
[2017-03-21] MEDS ORDERED: MAGNESIUM HYDROXIDE SUSP 30 ML CUP PO PRN (22:45)
[2017-03-21] MEDS ORDERED: OLANZapine 10 MG TAB PO SCH (22:45)
[2017-03-21] MEDS ORDERED: ALUMINUM/MAGNESIUM/SIMETH 30 ML CUP PO PRN (22:45)
[2017-03-21] MEDS ORDERED: ACETAMINOPHEN 325 MG TAB PO PRN (22:45)
[2017-03-21] MEDS ORDERED: diphenhydrAMINE HCL 50 MG/ML VIAL IM PRN (22:45)
[2017-03-21] MEDS ORDERED: diphenhydrAMINE HCL 50 MG CAP - HS PRN PO (22:45)
[2017-03-21] MEDS ORDERED: diphenhydrAMINE HCL 50 MG/ML VIAL - HS PRN IM (22:45)
[2017-03-21] MEDS ORDERED: diphenhydrAMINE HCL 50 MG CAP PO PRN (22:45)
[2017-03-22 01:17] VITALS: BP 147/72; PULSE 76; RESP 18; TEMP 97.6; O2SAT 96
[2017-03-22 06:46] VITALS: BP 104/55; PULSE 74; RESP 16; TEMP 97.7; O2SAT 96
[2017-03-22] MEDS: NICOTINE 21 MG/24 HR PATCH T-DERMAL SCH (08:42)
[2017-03-22] MEDS ORDERED: ALBUTEROL SULFATE 90 MCG/ACT HFA 18 GM INHALER INH PRN (09:15)
--- NOTE | 2017-03-22 09:20 | HHI.HP ---
Provisional Diagnosis Admission Date Mar 21, 2017 at 22:47 Alligator I. Major depression severe single episode with psychosis f 32.3 Certification of Person's Competence To Provide Express and Informed Consent I have personally examined Baldev Soria , a person being served at [facility] on, Mar 22, 2017 09:09. Express and informed consent means consent voluntarily given in writing, by a competent person, after sufficient explanation and disclosure of the subject matter involved to enable the person to make a knowing and willful decision without any element of force, fraud, deceit, duress, or other form of constraint or coercion. This person is 18 years of age or older, is not now known to be incompetent to consent to treatment with a guardian advocate, and does not have a health care surrogate or proxy currently making medical treatment decisions. I have found this person to be one of the following: xxx[] Competent to provide express and informed consent, as defined above, for voluntary admission to this facility and is competent to provide express and informed consent for treatment. He/she has the consistent capacity to make well reasoned, willful, and knowing decisions concerning his or her medical or mental health treatment. The person fully and consistently understands the purpose of the admission for examination/placement and is fully capable of personally exercising all rights assured under [place] Incompetent to provide express and informed consent to voluntary admission, and this is incompetent to provide express and informed consent to treatment. The person must be transferred to involuntary status and a petition for a guardian advocate filed with the Circuit Court. [] Refusing to provide express and informed consent to voluntary admission but is competent to provide express and informed consent for treatment. The person must be discharged or transferred to involuntary status. Form shall be completed within 24 hours of a person's arrival at the receiving facility and filed in the clinical record of each person: 1. Admitted on a voluntary basis 2. Permitted to provide express and informed consent to his/her own treatment 3. Allowed to transfer from involuntary to voluntary status 4. Prior to permitting a person to consent to his or her own treatment after having been previously found incompetent to consent to treatment. History of Present Illness Capacity: Has Capacity HPI Patient is a 62-year-old white male who comes to the ED voluntarily with complaints of increased depression with suicidal ideation and intent and vague auditory hallucinations. Patient seen screened in the ED urine toxicology negative blood level negative. Patient noted to the 2600 unit on a voluntary basis. At the present time patient sitting quietly in his room nurse Abril present throughout session. Patient states he has been essentially homeless the past 2+ weeks. His recently changed psychotropic medications do not appear to be holding him he has developed increased depression with a sad mood, sleeping in his car, with initial and middle insomnia, a.m. anergy, decreased appetite with weight loss, though some of that may be related to his lack of funding for food, there is decreased concentration and attention, increased irritability and short temperedness, there vague auditory hallucinations of hearing his name and his head, there is increase suicidal ideation to the point where he states he would take the suicide pill, he denies any alcohol or drug use related to this, though does acknowledge being a cigarette smoker. It appears patient is a 7 or 8 years. He appears to have no significant contact with family of origin or his stepchildren. Denies any physical or sexual abuse as a child, he states most of the members of his family of origin or alcohol or drug abusers and he feels they may have had some mental health history. Patient does see a psychiatrist in the community and diagnosed as bipolar was taking lithium and Haldol. He doesn't a history of psychiatric hospitalization in the past more up in the [facility]. There is also a history of COPD and renal problems Recently he was switched because the psychiatrist stated he was having some kidney issues with a lithium. He is not certain whether Haldol was switched. In any event she was placed on Zyprexa fairly recently. 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 At the present time patient meets criteria for voluntary inpatient psychiatric hospitalization this stabilizes medication. He is some set this time however counselors work on resources the community for him. We'll continue Zyprexa at 20 mg at bedtime and add Zoloft 25 mg in the morning will refrain from any benzodiazepines. Offer Atarax for some anxiety during the day Review of Systems Except as stated in HPI: all other systems reviewed are Neg Past Psych History Psychological trauma history Patient denies physical or sexual abuse Violence risk - others (6 mos) Low Violence risk - self (6 mos) Patient suicidal states he would possibly take the suicide pill Substance Abuse History Drugs/Alcohol past 12 months Eyes Past Family Social History Coded Allergies: No Known Allergies (Unverified , 12/18/16) Past Medical History History of COPD and kidney problems Active Scripts Albuterol 18 GM Inh (Ventolin Hfa 18 GM Inh)90 Mcg/Act Aer2 Puff INH Q4H PRN ( SHORTNESS OF BREATH) #1 INHALER Ref 0 Prov:Jenni Miranda MD 12/20/16 Reported Medications Trazodone 100 Mg [id number] Mg PO DAILY #30 TAB Ref 0 03/21/17 Discontinued Scripts Prednisone 20 Mg Tab20 Mg PO DAILY #3 TAB Ref 0 20 MG daily x 3 days Prov:Jenni Miranda MD 12/20/16 Current Medications Medications (Trade) Dose Ordered Sig/Edward Route Start Time Stop Time Status Last Admin (Atarax) 50 mg Q6H PRN PO 03/21/17 22:45 (Benadryl) 50 mg Q6H PRN PO 03/21/17 22:45 (Benadryl Inj) 50 mg Q6H PRN IM 03/21/17 22:45 (Benadryl) 50 mg HS PRN PO 03/21/17 22:45 03/21/17 22:51 (Benadryl Inj) 50 mg HS PRN IM 03/21/17 22:45 (Tylenol) 650 mg Q4H PRN PO 03/21/17 22:45 (Milk Of Magnesia Liq) 30 ml DAILY PRN PO 03/21/17 22:45 (Mag-Al Plus Susp Liq) 30 ml Q6H PRN PO 03/21/17 22:45 (Habitrol 21 Mg Patch.24 Hr) 1 patch DAILY T-DERMAL 03/22/17 09:00 03/22/17 08:42 Miscellaneous Information 1 HS T-DERMAL 03/22/17 21:00 (ZyPREXA) 20 mg HS PO 03/22/17 21:00 Family History Patient states history of alcohol or drug related issues with family of origin Social History Patient has no contact with stepchildren poor contact with his family of origin Patient's Strengths (min. 2) Patient verbal irritable [facility] care is cooperative Physical Exam Patient seen screened in ED exam reviewed and agreed with patient sitting quietly in his room with nurse Abril present throughout session, he is in no acute distress, neck is supple, though he is adentous, is in no respiratory distress, no abdominal pain, moves all 4 extremities without difficulty, no abnormal motor movements noted Vital Signs Vital Signs Date Time Temp Pulse Resp B/P Pulse Ox O2 Delivery O2 Flow Rate FiO2 03/22/17 06:46 97.7 74 16 104/55 96 03/21/17 22:00 Room Air Mental Status Examination Alert oriented thin slender somewhat disheveled white male calm cooperative with us with fair eye contact Appearance Somewhat disheveled Speech: Unremarkable Orientation: x3 Memory: Unremarkable Thought Process: Logical Thought Content: Unremarkable Language Fair Fund of Knowledge Fair Hallucination Type: Auditory (vague mumbling hearing his name in his head) Attention and Concentration: Other (fair) Suicidal Ideation: Yes (patient suicidal ideation and will consider taking the suicide pill) Previous Suicide Attempts: No Homicidal Ideation: No Previous Homicide Attempts: No Insight: Poor Judgment: Poor Affect: Other (slight decrease range of motion intensity) Mood: Sad (restricted) Motor Activity: Normal gait Assessment & Plan Problem List: (1) Severe major depression, single episode, with psychotic features ICD Code: F32.3 Assessment & Plan Estimated LOS: 3-5 days patient meets criteria for involuntary inpatient psychiatric hospitalization. Will adjust the medications adding Zoloft 25 mg daily. May be issues of placement of this gentleman level counselors discussed that with them also we'll have the hospitalist consult with us Discharge Planning To be determined Request HC Surrog/Guard Advoc?: No Baldev Cross MD Mar 22, 2017 09:20
[2017-03-22] MEDS: SERTRALINE HCL 50 MG TAB PO SCH (10:52)
[2017-03-22 18:00] VITALS: BP 123/94; PULSE 67; RESP 16; TEMP 98.4; O2SAT 95
[2017-03-22] MEDS: REMOVE OLD NICOTINE PATCH T-DERMAL SCH (20:54)
[2017-03-22] MEDS: OLANZapine 10 MG TAB PO SCH (20:55)
[2017-03-23 06:41] VITALS: BP 121/73; PULSE 71; RESP 20; TEMP 96.5; O2SAT 94
[2017-03-23] MEDS: SERTRALINE HCL 50 MG TAB PO SCH (09:17)
[2017-03-23] MEDS: NICOTINE 21 MG/24 HR PATCH T-DERMAL SCH (09:18)
--- NOTE | 2017-03-23 16:03 | HHI.PYPN ---
Subjective Remarks Pt seen and discussed with staff. Pt has been cooperative and compliant with care. He has been out of room and more present in milieu today. Compliant with medications. He reports that yesterday he had strong urges to kill himself and due to financial and health stressors. He reports that he slept well last night for the first time in weeks and today he has not had thoughts of SI/HI. Reports occasional AH. No medications side effects. Objective Alert: Yes [place]: Person, Place, Date, Situation Mood: Depressed Affect: Flat Memory Intact: Immediate, Recent, Remote Hallucinations: Auditory (intermittent) Delusions: No Delusion Type: Other (none) Suicidal: Ideation (denies) Homicidal: Ideation (denies) Insight/Judgment limited Vitals/IOs Vital Signs Date Time Temp Pulse Resp B/P Pulse Ox O2 Delivery O2 Flow Rate FiO2 03/23/17 06:41 96.5 71 20 121/73 94 03/21/17 22:00 Room Air Assessment & Plan Problem List: (1) Severe major depression, single episode, with psychotic features ICD Code: F32.3 Assessment & Plan Continue current tx plan. Pt is improving.Estimated LOS: days Justification for Cont. Inpt. monitoring for safety Request HC Surrog/Guard Advoc?: Amelia Bernal MD Mar 23, 2017 16:03
[2017-03-23 17:05] VITALS: BP 153/80; PULSE 66; RESP 18; TEMP 97.8; O2SAT 97
[2017-03-23] MEDS: REMOVE OLD NICOTINE PATCH T-DERMAL SCH (20:24)
[2017-03-23] MEDS: OLANZapine 10 MG TAB PO SCH (21:00)
[2017-03-24 04:59] VITALS: BP 133/82; PULSE 72; RESP 16; TEMP 98; O2SAT 97
[2017-03-24] MEDS: SERTRALINE HCL 50 MG TAB PO SCH (08:41)
[2017-03-24] MEDS: NICOTINE 21 MG/24 HR PATCH T-DERMAL SCH (08:43)
--- NOTE | 2017-03-24 11:04 | HHI.PYPN ---
Subjective Remarks Patient discussed with treatment team, chart review, patient seen on unit. Patient states she is feeling somewhat better now denies suicidality homicidality voices or visions. Continues to wish placement and an [facility] there is marked anxiety related to homelessness. For now continue treatment Review of Systems Except as stated in HPI: all other systems reviewed are Neg Objective Alert: Yes [place]: Person, Place, Date, Situation Mood: Depressed Affect: Flat Memory Intact: Immediate, Recent, Remote Hallucinations: Auditory (intermittent) Delusions: No Delusion Type: Other (none) Suicidal: Ideation (denies) Homicidal: Ideation (denies) Insight/Judgment Poor Vitals/IOs Vital Signs Date Time Temp Pulse Resp B/P Pulse Ox O2 Delivery O2 Flow Rate FiO2 03/24/17 04:59 98.0 72 16 133/82 97 03/21/17 22:00 Room Air Assessment & Plan Problem List: (1) Severe major depression, single episode, with psychotic features ICD Code: F32.3 Assessment & Plan Estimated LOS: days patient continues depressed though it is somewhat resolving the psychosis is resolving also. Compliant medication Justification for Cont. Inpt. At this time patient will decompensate place to the lower level of care Discharge Planning To be determined Request HC Surrog/Guard Advoc?: No Baldev Cross MD Mar 24, 2017 11:04
--- NOTE | 2017-03-24 11:25 | PD.TTN ---
Present for Treatment Team Treatment Team Staff: Provider (Dr. Cross), Psych Therapist (Maddie), Occupational Therapist (Erendira) Patient Problems 1. Discharge planning 2. Medication compliance 3. Knowledge deficit 4. Lack of coping skills Progress Toward Goals Provider Input: Patient has no new medications and has been compliant and cooperative on the unit. Patient is wanting to go to an assisted living facility to help manage his living situation. Nurse Input: Patient is compliant with medications and denies side effects. patient currently denies suicidal/homicidal ideations but voices that he is depressed. Psych Therapist Input: Patient mood is up and down. Patient currently denies SI/HI but is less hopeful about his future in regards to his living situation. Patient is hoping that he can go to an [facility] and notes that it would help him. Counselor will further help patient in this regards. Occupational Therapist Input: Patient is selectively social with peers on the unit. Maddie Palomo [facility] Mar 24, 2017 11:25
[2017-03-24 16:58] VITALS: BP 138/57; PULSE 64; RESP 18; TEMP 97.8; O2SAT 94
[2017-03-24] MEDS: REMOVE OLD NICOTINE PATCH T-DERMAL SCH (21:00)
[2017-03-24] MEDS: OLANZapine 10 MG TAB PO SCH (21:05)
[2017-03-25 06:03] VITALS: BP 118/68; PULSE 72; RESP 16; TEMP 97.9; O2SAT 95
[2017-03-25] MEDS: NICOTINE 21 MG/24 HR PATCH T-DERMAL SCH (08:28)
[2017-03-25] MEDS: SERTRALINE HCL 50 MG TAB PO SCH (08:29)
--- NOTE | 2017-03-25 12:43 | HHI.PYPN ---
Subjective Remarks Seen in [place] nurse Kalyan chart reviewed patient continues somewhat depressed but is participating in groups. Continues to agree with [facility] placement patient compliant with medications. For now continue treatment Review of Systems Except as stated in HPI: all other systems reviewed are Neg Objective Alert: Yes [place]: Person, Place, Date, Situation Mood: Depressed Affect: Flat Memory Intact: Immediate, Recent, Remote Hallucinations: Auditory (denies at this time) Delusions: No Delusion Type: Other (none) Suicidal: Ideation (denies) Homicidal: Ideation (denies) Insight/Judgment Poor Vitals/IOs Vital Signs Date Time Temp Pulse Resp B/P Pulse Ox O2 Delivery O2 Flow Rate FiO2 03/25/17 06:03 97.9 72 16 118/68 95 03/21/17 22:00 Room Air Assessment & Plan Problem List: (1) Severe major depression, single episode, with psychotic features ICD Code: F32.3 Assessment & Plan Estimated LOS: days patient continues depressed vaguely psychotic though states voices are just about gone today for now continue treatment Justification for Cont. Inpt. At this time patient will decompensate placed in a lower level of care Discharge Planning To be determined Request HC Surrog/Guard Advoc?: No Baldev Cross MD Mar 25, 2017 12:43
[2017-03-25 15:24] VITALS: BP 145/83; PULSE 65; RESP 18; TEMP 97.5; O2SAT 95
[2017-03-25] MEDS: OLANZapine 10 MG TAB PO SCH (21:00)
[2017-03-25] MEDS: REMOVE OLD NICOTINE PATCH T-DERMAL SCH (21:00)
[2017-03-26 06:01] VITALS: BP 120/70; PULSE 74; RESP 16; TEMP 97.8; O2SAT 99
[2017-03-26] MEDS: SERTRALINE HCL 50 MG TAB PO SCH (08:49)
[2017-03-26] MEDS: NICOTINE 21 MG/24 HR PATCH T-DERMAL SCH (08:50)
--- NOTE | 2017-03-26 12:52 | HHI.PYPN ---
Subjective Remarks Patient seen in dayroom with floor staff, chart review, patient compliant medication. He is to be calm cooperative though somewhat sad. He continues to work with us related to placement issues. There is some increase anxiety and sadness when he contemplates the possibility of being homeless. He does denies suicidality at this time Review of Systems Except as stated in HPI: all other systems reviewed are Neg Objective Alert: Yes [place]: Person, Place, Date, Situation Mood: Depressed Affect: Flat Memory Intact: Immediate, Recent, Remote Hallucinations: Auditory (denies at this time) Delusions: No Delusion Type: Other (none) Suicidal: Ideation (denies) Homicidal: Ideation (denies) Insight/Judgment Poor Vitals/IOs Vital Signs Date Time Temp Pulse Resp B/P Pulse Ox O2 Delivery O2 Flow Rate FiO2 03/26/17 06:01 97.8 74 16 120/70 99 Assessment & Plan Problem List: (1) Severe major depression, single episode, with psychotic features ICD Code: F32.3 Assessment & Plan Estimated LOS: days patient continues depressed but improving, he now denies suicidality, continues to work with us with placement issues Justification for Cont. Inpt. At the present time patient will decompensate and placed a lower level of care Discharge Planning To be determined Request HC Surrog/Guard Advoc?: No Baldev Cross MD Mar 26, 2017 12:52
[2017-03-26 18:05] VITALS: BP 160/84; PULSE 75; RESP 18; TEMP 97.4; O2SAT 95
[2017-03-26] MEDS: REMOVE OLD NICOTINE PATCH T-DERMAL SCH (20:26)
[2017-03-26] MEDS: OLANZapine 10 MG TAB PO SCH (20:27)
[2017-03-27 05:19] VITALS: BP 133/86; PULSE 79; RESP 18; TEMP 97.5; O2SAT 95
[2017-03-27] MEDS: NICOTINE 21 MG/24 HR PATCH T-DERMAL SCH (09:28)
[2017-03-27] MEDS: SERTRALINE HCL 50 MG TAB PO SCH (09:30)
--- NOTE | 2017-03-27 11:43 | HHI.PYPN ---
Subjective Remarks Patient seen in [place] with with nurse Ubaldo states he is feeling better he denies suicidality homicidality voices or visions appears to still would go to when [facility] the enrollment representative 1 coming today to visit with them Review of Systems Except as stated in HPI: all other systems reviewed are Neg Objective Alert: Yes [address]: Person, Place, Date, Situation Mood: Depressed Affect: Flat Memory Intact: Immediate, Recent, Remote Hallucinations: Auditory (denies at this time) Delusions: No Delusion Type: Other (none) Suicidal: Ideation (denies) Homicidal: Ideation (denies) Insight/Judgment Poor Vitals/IOs Vital Signs Date Time Temp Pulse Resp B/P Pulse Ox O2 Delivery O2 Flow Rate FiO2 03/27/17 05:19 97.5 79 18 133/86 95 Assessment & Plan Problem List: (1) Severe major depression, single episode, with psychotic features ICD Code: F32.3 Assessment & Plan Estimated LOS: days patient depression is is less than, compliant medications, working on placement issues Justification for Cont. Inpt. This time patient will possibly decompensate now placed in appropriate lower level of care Discharge Planning To be determined Request HC Surrog/Guard Advoc?: No Baldev Cross MD Mar 27, 2017 11:43
[2017-03-27 18:00] VITALS: BP 126/62; PULSE 79; RESP 18; TEMP 98.4; O2SAT 97
[2017-03-27] MEDS: REMOVE OLD NICOTINE PATCH T-DERMAL SCH (21:00)
[2017-03-27] MEDS: OLANZapine 10 MG TAB PO SCH (21:00)
[2017-03-27] MEDS: hydrOXYzine HCL 50 MG TAB PO PRN (21:19)
[2017-03-28 05:32] VITALS: BP 118/62; PULSE 84; RESP 16; TEMP 98; O2SAT 98
[2017-03-28] MEDS: NICOTINE 21 MG/24 HR PATCH T-DERMAL SCH (08:32)
[2017-03-28] MEDS: SERTRALINE HCL 50 MG TAB PO SCH (08:33)
--- NOTE | 2017-03-28 13:39 | HHI.PYPN ---
Subjective Remarks Patient seen in his room with floor staff, chart reviewed. Patient calm cooperative now denies suicidality homicidality voices or visions. It appears she is been interviewed for possible [facility] placement. He is excited about that also. For now continue treatment no change Review of Systems Except as stated in HPI: all other systems reviewed are Neg Objective Alert: Yes [place]: Person, Place, Date, Situation Mood: Depressed Affect: Flat Memory Intact: Immediate, Recent, Remote Hallucinations: Auditory (denies at this time) Delusions: No Delusion Type: Other (none) Suicidal: Ideation (denies) Homicidal: Ideation (denies) Insight/Judgment Poor Vitals/IOs Vital Signs Date Time Temp Pulse Resp B/P Pulse Ox O2 Delivery O2 Flow Rate FiO2 03/28/17 05:32 98.0 84 16 118/62 98 Assessment & Plan Problem List: (1) Severe major depression, single episode, with psychotic features ICD Code: F32.3 Assessment & Plan Estimated LOS: days patient showing improvement in his depression. He is compliant medication. When interviewed by local [facility] need to await the word as to bed availability Justification for Cont. Inpt. At this time patient may decompensate if not place to appropriate level of care Discharge Planning To be determined Request HC Surrog/Guard Advoc?: No Baldev Cross MD Mar 28, 2017 13:38
[2017-03-28 18:00] VITALS: BP 179/86; PULSE 85; RESP 16; O2SAT 97
[2017-03-28] MEDS: OLANZapine 10 MG TAB PO SCH (21:00)
[2017-03-28] MEDS: REMOVE OLD NICOTINE PATCH T-DERMAL SCH (21:00)
[2017-03-28] MEDS: hydrOXYzine HCL 50 MG TAB PO PRN (21:17)
[2017-03-29 05:20] VITALS: BP 119/73; PULSE 78; RESP 18; TEMP 97.7; O2SAT 96
[2017-03-29] MEDS: NICOTINE 21 MG/24 HR PATCH T-DERMAL SCH (08:16)
[2017-03-29] MEDS: SERTRALINE HCL 50 MG TAB PO SCH (08:16)
--- NOTE | 2017-03-29 11:17 | HHI.PYPN ---
Subjective Remarks Patient was seen and case discussed with nursing. Patient is pleasant and cooperative with exam. He notes significant improvement in mood compared to admission. Says he is no longer depressed and has hope for the future. Looking forward to his discharge to assisted living facility. Wants to quit smoking. Denies suicidal ideation intent or plan. Objective Alert: Yes [place]: Person, Place, Date, Situation Mood: Calm Affect: Blunted Memory Intact: Immediate, Recent, Remote Hallucinations: Auditory (denies at this time) Delusions: No Delusion Type: Other (none) Suicidal: Ideation (denies) Homicidal: Ideation (denies) Insight/Judgment Poor Vitals/IOs Vital Signs Date Time Temp Pulse Resp B/P Pulse Ox O2 Delivery O2 Flow Rate FiO2 03/29/17 05:20 97.7 78 18 119/73 96 Assessment & Plan Problem List: (1) Severe major depression, single episode, with psychotic features ICD Code: F32.3 Assessment & Plan Continue current treatment plan Justification for Cont. Inpt. Patient will decompensate in a less restrictive setting Request HC Surrog/Guard Advoc?: No Westley Horton DO Mar 29, 2017 11:17
[2017-03-29 18:37] VITALS: BP 142/71; PULSE 78; RESP 18; TEMP 98.1; O2SAT 97
[2017-03-29] MEDS: REMOVE OLD NICOTINE PATCH T-DERMAL SCH (21:00)
[2017-03-29] MEDS: OLANZapine 10 MG TAB PO SCH (21:00)
[2017-03-29] MEDS: hydrOXYzine HCL 50 MG TAB PO PRN (23:19)
[2017-03-30 06:13] VITALS: BP 136/75; PULSE 71; RESP 17; TEMP 97.7; O2SAT 98
[2017-03-30] MEDS: NICOTINE 21 MG/24 HR PATCH T-DERMAL SCH (09:00)
[2017-03-30] MEDS: SERTRALINE HCL 50 MG TAB PO SCH (09:00)
[2017-03-30 15:23] VITALS: BP 142/79; PULSE 68; RESP 18; TEMP 97.6; O2SAT 97
--- NOTE | 2017-03-30 15:25 | HHI.PYPN ---
Subjective Remarks Patient was seen and case discussed with nursing. Patient continues to improve. Insight judgment is improving. He is looking forward to his future placement. Bright and cheerful during the interview. Socializing with others. Tolerating medications well. Denies suicidal ideation intent or plan Objective Alert: Yes [place]: Person, Place, Date, Situation Mood: Calm Affect: Appropriate Memory Intact: Immediate, Recent, Remote Hallucinations: Auditory (denies at this time) Delusions: No Delusion Type: Other (none) Suicidal: Ideation (denies) Homicidal: Ideation (denies) Insight/Judgment Good Vitals/IOs Vital Signs Date Time Temp Pulse Resp B/P Pulse Ox O2 Delivery O2 Flow Rate FiO2 03/30/17 15:23 97.6 68 18 142/79 97 Assessment & Plan Problem List: (1) Severe major depression, single episode, with psychotic features ICD Code: F32.3 Assessment & Plan Continue current treatment plan Justification for Cont. Inpt. Patient would decompensate in a less restrictive setting Request HC Surrog/Guard Advoc?: No Westley Horton DO Mar 30, 2017 15:25
[2017-03-30 20:16] VITALS: BP 142/79; PULSE 68; RESP 18; TEMP 97.6; O2SAT 97
[2017-03-30] MEDS: REMOVE OLD NICOTINE PATCH T-DERMAL SCH (21:00)
[2017-03-30] MEDS: OLANZapine 10 MG TAB PO SCH (21:00)
[2017-03-30] MEDS: hydrOXYzine HCL 50 MG TAB PO PRN (21:05)
[2017-03-31] MEDS: NICOTINE 21 MG/24 HR PATCH T-DERMAL SCH (09:00)
[2017-03-31] MEDS: SERTRALINE HCL 50 MG TAB PO SCH (09:01)
--- NOTE | 2017-03-31 13:09 | HHI.PYPN ---
Subjective Remarks Patient seen in [place] with Dr. Walton, chart review, patient compliant medications. Patient continues calm no behavior problems, is excited about possible discharge tomorrow to [facility] if the funding issues can be resolved. He denies suicidality homicidality voices or visions Review of Systems Except as stated in HPI: all other systems reviewed are Neg Objective Alert: Yes [place]: Person, Place, Date, Situation Mood: Calm Affect: Appropriate Memory Intact: Immediate, Recent, Remote Hallucinations: Auditory (denies at this time) Delusions: No Delusion Type: Other (none) Suicidal: Ideation (denies) Homicidal: Ideation (denies) Insight/Judgment Poor Vitals/IOs Vital Signs Date Time Temp Pulse Resp B/P Pulse Ox O2 Delivery O2 Flow Rate FiO2 03/30/17 20:16 97.6 68 18 142/79 97 Assessment & Plan Problem List: (1) Severe major depression, single episode, with psychotic features ICD Code: F32.3 Assessment & Plan Estimated LOS: days patient continues to improve, continues to show agreement with placement in [place] if funding can be accomplished Justification for Cont. Inpt. At this time patient laying decompensate if not placed in an appropriate level of care Discharge Planning To be determined Request HC Surrog/Guard Advoc?: No Baldev Cross MD Mar 31, 2017 13:09
--- NOTE | 2017-03-31 13:53 | PD.TTN ---
Present for Treatment Team Treatment Team Staff: Provider (Dr. Cross), Nurse (Kalyan), Psych Therapist (Maddie ), Occupational Therapist (Erendira) Patient Problems 1. Discharge planning 2. Medication compliance 3. Knowledge deficit 4. Lack of coping skills Progress Toward Goals Provider Input: Patient is noted to be stablized and behavioring well on the unit. patient is cooperative and calm. Nurse Input: Patient is compliant and cooperative. Patient has no behavioral issues on the unit and notes to be waiting to be discharge. patient has been sleeping well and no side effects from medications. Psych Therapist Input: Patient is cooperative and calm. Patient is looking forward to transitioning to [facility]. Patient will be discharged tomorrow. Occupational Therapist Input: Patient participates in group and is able to provide insight to his mental health. Maddie Palomo [facility] Mar 31, 2017 13:53
[2017-03-31 17:07] VITALS: PULSE 79; RESP 18; TEMP 97.9; O2SAT 98
[2017-03-31] MEDS: hydrOXYzine HCL 50 MG TAB PO PRN (20:41)
[2017-03-31] MEDS: OLANZapine 10 MG TAB PO SCH (20:41)
[2017-03-31] MEDS: REMOVE OLD NICOTINE PATCH T-DERMAL SCH (20:42)
[2017-04-01 06:07] VITALS: BP 124/69; PULSE 70; RESP 16; TEMP 97.6; O2SAT 97
[2017-04-01] MEDS: SERTRALINE HCL 50 MG TAB PO SCH (08:42)
[2017-04-01] MEDS: NICOTINE 21 MG/24 HR PATCH T-DERMAL SCH (08:43)
[2017-04-01] MEDS ORDERED: TUBERCULIN, PPD 5 UNITS/0.1 ML SYRINGE I-DERMAL STA (12:53)
--- NOTE | 2017-04-01 13:00 | HHI.PYPN ---
Subjective Remarks Patient seen in [place] of floor staff, chart review, patient compliant medications. Patient said about the possible placement though he needs to have a tuberculin TB shantelle test done prior to acceptance there. That would be ordered today this visit is regimen will be discharged to that facility Review of Systems Except as stated in HPI: all other systems reviewed are Neg Objective Alert: Yes [place]: Person, Place, Date, Situation Mood: Calm Affect: Appropriate Memory Intact: Immediate, Recent, Remote Hallucinations: Auditory (denies at this time) Delusions: No Delusion Type: Other (none) Suicidal: Ideation (denies) Homicidal: Ideation (denies) Insight/Judgment Poor to fair Vitals/IOs Vital Signs Date Time Temp Pulse Resp B/P Pulse Ox O2 Delivery O2 Flow Rate FiO2 04/01/17 06:07 97.6 70 16 124/69 97 Assessment & Plan Problem List: (1) Severe major depression, single episode, with psychotic features ICD Code: F32.3 Assessment & Plan Estimated LOS: days patient will continues to improve, now denies suicidality. Patient received tuberculin shantelle test today anticipation of discharge in next 3 days to placement Justification for Cont. Inpt. At this time patient may deteriorate now placed in an appropriate setting Discharge Planning To be determined Request HC Surrog/Guard Advoc?: No Baldev Cross MD Apr 01, 2017 12:59
[2017-04-01 18:00] VITALS: BP 99/64; PULSE 73; RESP 17; TEMP 98; O2SAT 99
[2017-04-01] MEDS: OLANZapine 10 MG TAB PO SCH (20:24)
[2017-04-01] MEDS: hydrOXYzine HCL 50 MG TAB PO PRN (20:24)
[2017-04-01] MEDS: REMOVE OLD NICOTINE PATCH T-DERMAL SCH (20:26)
[2017-04-02 05:22] VITALS: BP 138/81; PULSE 69; RESP 16; TEMP 98; O2SAT 93
[2017-04-02] MEDS: NICOTINE 21 MG/24 HR PATCH T-DERMAL SCH (08:35)
[2017-04-02] MEDS: SERTRALINE HCL 50 MG TAB PO SCH (09:00)
--- NOTE | 2017-04-02 14:39 | HHI.PYPN ---
Subjective Remarks Patient seen in room with nurse Kayley, chart reviewed. Patient remains calm cooperative and pleasant, patient did receive his TB shantelle test yesterday and awaiting the results of that prior to discharge. He continues to denies suicidality homicidality voices or visions. Review of Systems Except as stated in HPI: all other systems reviewed are Neg Objective Alert: Yes [place]: Person, Place, Date, Situation Mood: Calm Affect: Appropriate Memory Intact: Immediate, Recent, Remote Hallucinations: Auditory (denies at this time) Delusions: No Delusion Type: Other (none) Suicidal: Ideation (denies) Homicidal: Ideation (denies) Insight/Judgment Poor Vitals/IOs Vital Signs Date Time Temp Pulse Resp B/P Pulse Ox O2 Delivery O2 Flow Rate FiO2 04/02/17 05:22 98.0 69 16 138/81 93 Intake and Output 04/01/17 04/01/17 04/01/17 07:59 15:59 23:59 Intake Total 480 ml 240 ml Balance 480 ml 240 ml Assessment & Plan Problem List: (1) Severe major depression, single episode, with psychotic features ICD Code: F32.3 Assessment & Plan Estimated LOS: days patient will continues to improve, denying suicidality homicidality voices or visions at this time. Awaiting results of TB shantelle test for discharge Justification for Cont. Inpt. At this time patient may decompensate if not placed in an appropriate level of care Discharge Planning To be determined Request HC Surrog/Guard Advoc?: No Baldev Cross MD Apr 02, 2017 14:38
[2017-04-02 18:00] VITALS: BP 124/72; PULSE 74; RESP 17; TEMP 97.8; O2SAT 98
[2017-04-02] MEDS: REMOVE OLD NICOTINE PATCH T-DERMAL SCH (21:00)
[2017-04-02] MEDS: OLANZapine 10 MG TAB PO SCH (21:00)
[2017-04-02] MEDS: hydrOXYzine HCL 50 MG TAB PO PRN (21:12)
[2017-04-03 05:49] VITALS: BP 96/71; PULSE 76; RESP 16; TEMP 97.8; O2SAT 96
[2017-04-03] MEDS: NICOTINE 21 MG/24 HR PATCH T-DERMAL SCH (08:36)
[2017-04-03] MEDS: SERTRALINE HCL 50 MG TAB PO SCH (08:36)
[2017-04-03] MEDS ORDERED: OLAN20TA PO (12:40)
[2017-04-03] MEDS ORDERED: ZOLO25TA PO (12:40)
--- NOTE | 2017-04-03 12:45 | HHI.DS ---
Psychiatry Discharge Summary Inpatient Psychiatric care?: Yes Advance Directive: No Reason Not Provided: NOT DONE Mental Health AdvanceDirective: No Health Care Proxy: No Admission Admission Date Mar 21, 2017 at 22:47 Admission Diagnosis: (1) Severe major depression, single episode, with psychotic features ICD Code: F32.3 Brief History Patient is a 62-year-old white male who comes to the ED voluntarily with complaints of increased depression with suicidal ideation and intent and vague auditory hallucinations. Patient seen screened in the ED urine toxicology negative blood level negative. Patient noted to the 2600 unit on a voluntary basis. At the present time patient sitting quietly in his room nurse Abril present throughout session. Patient states he has been essentially homeless the past 2+ weeks. His recently changed psychotropic medications do not appear to be holding him he has developed increased depression with a sad mood, sleeping in his car, with initial and middle insomnia, a.m. anergy, decreased appetite with weight loss, though some of that may be related to his lack of funding for food, there is decreased concentration and attention, increased irritability and short temperedness, there vague auditory hallucinations of hearing his name and his head, there is increase suicidal ideation to the point where he states he would take the suicide pill, he denies any alcohol or drug use related to this, though does acknowledge being a cigarette smoker. It appears patient is a 7 or 8 years. He appears to have no significant contact with family of origin or his stepchildren. Denies any physical or sexual abuse as a child, he states most of the members of his family of origin or alcohol or drug abusers and he feels they may have had some mental health history. Patient does see a psychiatrist in the community and diagnosed as bipolar was taking lithium and Haldol. He doesn't a history of psychiatric hospitalization in the past more up in [facility]. There is also a history of COPD and renal problems Recently he was switched because the psychiatrist stated he was having some kidney issues with a lithium. He is not certain whether Haldol was switched. In any event she was placed on Zyprexa fairly recently. 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 At the present time patient meets criteria for voluntary inpatient psychiatric hospitalization this stabilizes medication. He is some set this time however counselors work on resources the community for him. We'll continue Zyprexa at 20 mg at bedtime and add Zoloft 25 mg in the morning will refrain from any benzodiazepines. Offer Atarax for some anxiety during the day Tobacco Use In Past 30 Days: No Tobacco Past 30 Days Alcohol Use: Monthly or Less Hospital Course Patient's initial depression with psychotic features will resolved with his getting trust and confidence of the staff in the milieu. He show compliance with his medications. His psychosis resolved his depression suicidal thoughts also slowly resolved. He showed good processing of placement issues and is willingness in the to be in an appropriate safe placement. This has been followed through [facility]. He has had his TB shantelle applied and is negative. Thus patient is to be discharged today to that facility then Rx 1 month to follow-up mental health services through that facility Results Blood Pressure 96 / 71 Vital Signs Date Time Temp Pulse Resp B/P Pulse Ox O2 Delivery O2 Flow Rate FiO2 04/03/17 05:49 97.8 76 16 96/71 96 Urine toxicology negative Summary of Procedures None done Pending results at discharge: No Medications # of Antipsychotic meds at D/C: 1 Approp Antipsych med options 1 - Minimum of three failed multiple trials of monotherapy. 2 - Documented plan to taper to monotherapy due to previous use of multiple meds OR cross-taper in progress at D/C. 3 - Documentation of augmentation of Clozapine. 4 - Justification other than those listed in allowable values 1-3, document here : Discharge Discharge Date: Apr 03, 2017 Discharge Diagnosis: (1) Severe major depression, single episode, with psychotic features Diagnosis: Principal ICD Code: F32.3 Mental Status Exam at Disch Alert oriented white male calm cooperative. He has normoactive. Mood is euthymic to somewhat restricted with slight decreased range intensity was affect. Speech rate and rhythm is slow but goal oriented though no formal thought disorders. No auditory or visual hallucinations no delusions noted. Insight and judgment is fair cognition grossly intact Pt Condition on Discharge: Stable [facility] Discharge Instructions Diet Instructions: As Tolerated, No Restrictions Activities you can perform: Regular-No Restrictions Scheduled Appointment: Emilia Littlejohn Appointment Date: Apr 03, 2017 Discharge Time > 30 minutes Discharge/Advance Care Plan Health Problems: (1) Severe major depression, single episode, with psychotic features Goals to promote your health * To prevent worsening of your condition and complications * To maintain your health at the optimal level Directions to meet your goals Take your medications as prescribed Follow your dietary instruction Follow activity as directed Keep your appointments as scheduled Take your immunizations and boosters as scheduled If your symptoms worsen call your PCP, if no PCP go to Urgent Care Center or Emergency Room For 07/04 questions related to your inpatient stay or results of tests pending at discharge, please contact Dr. Baldev Cross at Smoking is Dangerous to Your Health. Avoid second hand smoking Baldev Cross MD Apr 03, 2017 12:45
== END 2017-04-03 17:15 | DRG 885 ==
LOC: NEPC 16:15 → NEDA 22:47 → H260 23:02
PROVIDERS: ADMIT Psychiatry & Neurology Psychiatry; ATTEND Psychiatry & Neurology Psychiatry
DX: F32.3 Major depressive disorder, single episode, severe with psychotic features (principal); R45.851 Suicidal ideations; J44.9 Chronic obstructive pulmonary disease, unspecified; R63.4 Abnormal weight loss; F17.210 Nicotine dependence, cigarettes, uncomplicated; H91.90 Unspecified hearing loss, unspecified ear; M19.90 Unspecified osteoarthritis, unspecified site; Z68.20 Body mass index [BMI] 20.0-20.9, adult; Z59.0 Homelessness
CPT/HCPCS: 80053; 80307; 85025; Q0163

== ENCOUNTER 2017-07-17 20:37 | Emergency (ER) | payer OTHER ==
[~2017-07-17] VITALS: Ht 185.4 cm; Wt 70.0 kg
[~2017-07-17 20:37] MED LIST changes: -HALO1TAB25 PO; -LEVA750T PO; -LITH450T PO; -NORT50CA PO; +OLAN20TA PO; -PRED20 PO; +TRAZ100T10 PO; +ZOLO25TA PO
[2017-07-17 21:02] VITALS: BP 125/72; PULSE 79; RESP 18; TEMP 98; O2SAT 94
--- NOTE | 2017-07-17 21:44 | PD ---
HPI Chief Complaint: Cold / Flu Symptoms Time Seen by Provider: 21:42 Travel History International Travel<30 days: No Contact w/Intl Traveler<30days: No Traveled to known affect area: No History of Present Illness HPI 62-year-old male presents the emergency department with ongoing cough for over 2 weeks. Patient complains of productive cough of yellow-green sputum. Patient is currently living in a assisted living facility. He states his "supposed to have an inhaler" but couldn't get one. Patient is unsure if he has had fever, but denies nausea, vomiting, or diarrhea. Patient denies sore throat. Patient does have headache with cough. Patient feels dyspneic with exertion. Patient has lower thoracic back pain with cough. He denies urinary symptoms. Patient has history of schizoaffective disorder. He smokes at least a pack a day for years. PFSH Past Medical History Blood Disorders: No Bipolar Disorder: Yes Cancer: No Cardiovascular Problems: Yes Chest Pain: Yes COPD: Yes Diminished Hearing: Yes ([place]) Endocrine: No Genitourinary: No Immune Disorder: No Musculoskeletal: Yes (arthritis ) Neurologic: No Psychiatric: Yes (patient has long history of mental health issues) Reproductive: No Respiratory: Yes Schizophrenia: Yes (effective disorder) Influenza Vaccination: Yes Past Surgical History Surgical History: No Previous Surgery Other Surgery: No Social History Alcohol Use: No Tobacco Use: Yes (2 PPD) Substance Use: No Allergies-Medications (Allergen,Severity, Reaction): Coded Allergies: No Known Allergies (Unverified Adverse Reaction, Unknown, 07/17/17) Reported Meds & Prescriptions Reported Meds & Active Scripts Active Olanzapine 20 Mg Tab 20 Mg PO HS Ventolin Hfa 18 GM Inh (Albuterol Sulfate) 90 Mcg/Act Aer 2 Puff INH Q4H PRN Reported Trazodone (Trazodone HCl) 100 Mg Tablet 100 Mg PO DAILY Review of Systems Except as stated in HPI: all other systems reviewed are Neg General / Constitutional: Positive: Chills, No: Fever Eyes: No: Visual changes HENT: Positive: Headaches, Rhinitis, Rhinorrhea, Congestion, No: Vertigo, Lightheadedness, Sore Throat, Nosebleed, Neck Stiffness, Neck Pain, Gingival Bleeding, Dental Difficulties, Ear Discharge, Earache Cardiovascular: No: Chest Pain or Discomfort Respiratory: Positive: Cough, Shortness of Breath, Wheezing, No: Sneezing, Orthopnea, Hemoptysis, Stridor, Night Sweats, Pleuritic Pain Gastrointestinal: No: Nausea, Vomiting, Diarrhea, Abdominal Pain Genitourinary: No: Dysuria Musculoskeletal: No: Pain Skin: No Rash Neurologic: No: Weakness Psychiatric: No: Depression Endocrine: No: Polydipsia Hematologic/Lymphatic: No: Easy Bruising Physical Exam Narrative GENERAL: Patient appears in mild respiratory distress. SKIN: Warm and dry. Normal color. Normal turgor. HEAD: Atraumatic. Normocephalic. EYES: Pupils equal and round. No scleral icterus. No injection or drainage. ENT: No nasal bleeding or discharge. Mucous membranes pink and moist. TMs are clear bilaterally. Pharynx is somewhat erythematous otherwise no significant ST. Airway is patent. NECK: Trachea midline. Supple nontender CARDIOVASCULAR: Regular rate and rhythm. No murmurs gallops or rubs. RESPIRATORY: Mild accessory muscle use with noted retractions. Pursed lip breathing is noted. Diffuse wheezes and rales to auscultation. Decreased Breath sounds that are equal bilaterally. GASTROINTESTINAL: Abdomen soft, non-tender, nondistended. Hepatic and splenic margins not palpable. MUSCULOSKELETAL: Extremities without clubbing, cyanosis, or edema. No obvious deformities. NEUROLOGICAL: Awake and alert. No obvious cranial nerve deficits. Motor grossly within normal limits. Five out of 5 muscle strength in the arms and legs. Normal speech. PSYCHIATRIC: Appropriate mood and affect; insight and judgment normal. Data Data Last Documented VS Vital Signs Date Time Temp Pulse Resp B/P (MAP) Pulse Ox O2 Delivery O2 Flow Rate FiO2 07/17/17 21:02 98.0 79 18 125/72 (89) 94 Orders Orders Electrocardiogram (07/17/17 21:50) Complete Blood Count With Diff (07/17/17 21:50) Comprehensive Metabolic Panel (07/17/17 21:50) Lactic Acid Sepsis Protocol (07/17/17 21:50) Urinalysis - C+S If Indicated (07/17/17 21:50) Blood Culture (07/17/17 21:50) Sputum Culture And Gram Stain (07/17/17 21:50) Chest, Pa & Lat (07/17/17 21:50) Ecg Monitoring (07/17/17 21:50) Iv Access Insert/Monitor (07/17/17 21:50) Oximetry (07/17/17 21:50) Sodium Chloride 0.9% Flush (Ns Flush) (07/17/17 22:00) Ceftriaxone Inj (Rocephin Inj) (07/17/17 22:00) Azithromycin (Zithromax) (07/17/17 22:00) Albuterol-Ipratropium Neb (Duoneb Neb) (07/17/17 22:00) Methylprednisolone So Succ Inj (Solumedr (07/17/17 22:00) MDM Medical Decision Making Medical Screen Exam Complete: Yes Emergency Medical Condition: Yes Medical Record Reviewed: Yes Differential Diagnosis COPD with acute exacerbation. Chronic bronchitis with flare. Pneumonia. Narrative Course Patient is somewhat dyspneic but O2 sat is 94% on room air. Labs ordered including CBC, CMP, lactic acid, urinalysis. Chest x-ray, PA and lateral, is ordered. IV access is obtained and the patient is given 1000 mg Rocephin IV as well as 500 mg azithromycin by mouth. DuoNeb 3 is ordered as well as 125 mg Solu-Medrol IV. Chest x-ray shows no acute process per radiologist. 2300 hrs., labs are pending. Patient is discussed with Dr. Liang who assumes care of the patient and will determine final disposition of the patient. Condition: Stable Rajesh Alva Jul 17, 2017 21:44
[2017-07-17] MEDS ORDERED: AZITHROMYCIN 250 MG TAB PO ONE (22:00)
[2017-07-17] MEDS ORDERED: SODIUM CHLORIDE 0.9% FLUSH 10 ML FLUSH IVF PRN (22:00)
[2017-07-17] MEDS ORDERED: cefTRIAXone INJ 1,000 MG in SODIUM CHLORIDE 0.9% INJ 100 ML IV ONE (22:00)
[2017-07-17] MEDS ORDERED: methylPREDNISolone SOD SUCC 125 MG/2 ML VIAL IV PUSH ONE (22:00)
[2017-07-17] MEDS: RESP: ALBUTEROL 2.5 MG/IPRATROPIUM 0.5 MG NEB (SCH) INH (22:13)
--- NOTE | 2017-07-17 22:17 | RADRPT ---
EXAM DATE/TIME: 07/17/2017 22:03 [place] COMPARISON: CHEST PA & LAT, December 18, 2016, 19:53. INDICATIONS : Cough MEDICAL HISTORY : Emphysema. SURGICAL HISTORY : None. ENCOUNTER: Initial ACUITY: 2 weeks PAIN SCORE: 0/10 LOCATION: Bilateral chest FINDINGS: PA and lateral views of the chest demonstrate the lungs to be symmetrically aerated without evidence of mass, infiltrate or effusion. The cardiomediastinal contours are unremarkable. Osseous structure s are intact. CONCLUSION: No acute disease. Levy Duval MD on July 17, 2017 at 22:14 Board Certified Radiologist. This report was verified electronically.
[2017-07-17 23:03] LABS: AUTOMATED NEUTROPHIL # 5.2 TH/MM3 (1.8-7.7); BASOPHIL # 0.1 TH/MM3 (0-0.2); BASOPHIL % 0.7 % (0.0-2.0); EOSINOPHIL # 0.1 TH/MM3 (0-0.4); EOSINOPHIL % 1.4 % (0.0-4.0); HEMO FLAGS DIFF FINAL; LYMPH % 23.7 % (9.0-44.0); LYMPHOCYTE # 1.9 TH/MM3 (1.0-4.8); MEAN CELL VOLUME 94.4 FL (80.0-100.0); MEAN CORPUSCULAR HEMOGLOBIN 32.4 PG (27.0-34.0); MEAN CORPUSCULAR HGB CONC 34.3 % (32.0-36.0); MONO % 7.8 % (0.0-8.0); NEUT % 66.4 % (16.0-70.0); PLATELET COUNT 165 TH/MM3 (150-450); RED BLOOD COUNT 4.56 MIL/MM3 (4.50-5.90); RED CELL DISTRIBUTION WIDTH 13.9 % (11.6-17.2); WHITE BLOOD COUNT 7.9 TH/MM3 (4.0-11.0)
[2017-07-17 23:13] LABS: ANION GAP 6 MEQ/L (5-15); AST (GOT) 27 U/L (15-37); BICARBONATE 28.5 MEQ/L (21.0-32.0); BLOOD UREA NITROGEN 15 MG/DL (7-18); CHLORIDE 109 MEQ/L (98-107); GLOMERULAR FILTRATION RATE 53 ML/MIN (>89); POTASSIUM 4.2 MEQ/L (3.5-5.1); SODIUM (NA) 143 MEQ/L (136-145)
[2017-07-17 23:17] LABS: ALKALINE PHOSPHATASE 101 U/L (45-117); ALT (GPT) 26 U/L (12-78); TOTAL BILIRUBIN ADULT 0.2 MG/DL (0.2-1.0)
[2017-07-18 00:26] VITALS: BP 123/75; PULSE 84; RESP 18; O2SAT 93
[2017-07-18] MEDS ORDERED: RESP: ALBUTEROL 2.5 MG/3 ML NEB (SCH) NEB ONE (00:30)
[2017-07-18] MEDS ORDERED: VENTAER INH (00:33)
[2017-07-18] MEDS ORDERED: PRED-503 PO (00:33)
--- NOTE | 2017-07-18 00:33 | PD ---
Physical Exam Narrative I, Dr. Liang, have reviewed the advance practice practitioner's documentation and am in agreement, met with the patient face to face, made the diagnosis, and the medical decision making was done by me. *My assessment and Findings: COPD exacerbation vs. Pneumonia 62yo M with COPD here with productive cough for 2 weeks. Pt thinks he has pneumonia. O2 sat is 93-95%. Pt is wheezing bilaterally. Albuterol neb x4 and methylprednisolone given. Labs reviewed, no leukocytosis. Lactic acid normal. Creatinine at baseline. CXR showed no acute disease. Pt reevaluated at bedside and feels better. Speaking in complete sentences. Return precautions given. Data Data Last Documented VS Vital Signs Date Time Temp Pulse Resp B/P (MAP) Pulse Ox O2 Delivery O2 Flow Rate FiO2 07/18/17 00:55 07/18/17 00:26 84 18 93 Room Air 07/17/17 21:02 98.0 Orders Orders Electrocardiogram (07/17/17 21:50) Complete Blood Count With Diff (07/17/17 21:50) Comprehensive Metabolic Panel (07/17/17 21:50) Lactic Acid Sepsis Protocol (07/17/17 21:50) Blood Culture (07/17/17 21:50) Sputum Culture And Gram Stain (07/17/17 21:50) Chest, Pa & Lat (07/17/17 21:50) Ecg Monitoring (07/17/17 21:50) Iv Access Insert/Monitor (07/17/17 21:50) Oximetry (07/17/17 21:50) Sodium Chloride 0.9% Flush (Ns Flush) (07/17/17 22:00) Ceftriaxone Inj (Rocephin Inj) (07/17/17 22:00) Azithromycin (Zithromax) (07/17/17 22:00) Albuterol-Ipratropium Neb (Duoneb Neb) (07/17/17 22:00) Methylprednisolone So Succ Inj (Solumedr (07/17/17 22:00) Albuterol Neb (Albuterol Neb) (07/18/17 00:30) Ed Discharge Order (07/18/17 00:33) Labs Laboratory Tests Test 07/17/17 22:30 White Blood Count 7.9 TH/MM3 Red Blood Count 4.56 MIL/MM3 Hemoglobin 14.8 GM/DL Hematocrit 43.0 % Mean Corpuscular Volume 94.4 FL Mean Corpuscular Hemoglobin 32.4 PG Mean Corpuscular Hemoglobin Concent 34.3 % Red Cell Distribution Width 13.9 % Platelet Count 165 TH/MM3 Mean Platelet Volume 8.3 FL Neutrophils (%) (Auto) 66.4 % Lymphocytes (%) (Auto) 23.7 % Monocytes (%) (Auto) 7.8 % Eosinophils (%) (Auto) 1.4 % Basophils (%) (Auto) 0.7 % Neutrophils # (Auto) 5.2 TH/MM3 Lymphocytes # (Auto) 1.9 TH/MM3 Monocytes # (Auto) 0.6 TH/MM3 Eosinophils # (Auto) 0.1 TH/MM3 Basophils # (Auto) 0.1 TH/MM3 CBC Comment DIFF FINAL Differential Comment Blood Urea Nitrogen 15 MG/DL Creatinine 1.36 MG/DL Random Glucose 94 MG/DL Total Protein 7.0 GM/DL Albumin 3.6 GM/DL Calcium Level 9.0 MG/DL Alkaline Phosphatase 101 U/L Aspartate Amino Transf (AST/SGOT) 27 U/L Alanine Aminotransferase (ALT/SGPT) 26 U/L Total Bilirubin 0.2 MG/DL Sodium Level 143 MEQ/L Potassium Level 4.2 MEQ/L Chloride Level 109 MEQ/L Carbon Dioxide Level 28.5 MEQ/L Anion Gap 6 MEQ/L Estimat Glomerular Filtration Rate 53 ML/MIN Lactic Acid Level 0.8 mmol/L MDM Supervised Visit with ELIZABETH: Yes Diagnosis Primary Impression: COPD with acute exacerbation Patient Instructions: General Instructions Departure Forms: Tests/Procedures Additional Instruction: Please follow up with your primary care physician in 2-3 days. Return to the ED if symptoms worsen. Med/Other Pt SpecificInfo: Prescription(s) given Scripts Prednisone (Deltasone) 20 Mg Tab 20 MG PO BID for 5 Days, #10 TAB 0 Refills Prov: Brigette Liang DO 07/18/17 Albuterol 18 GM Inh (Ventolin Hfa 18 GM Inh) 90 Mcg/Act Aer 2 PUFF INH Q4H Y for SHORTNESS OF BREATH, #1 INHALER 0 Refills Prov: Brigette Liang DO 07/18/17 Disposition: 01 DISCHARGE HOME Condition: Stable Brigette Liang DO Jul 18, 2017 00:33
--- NOTE | 2017-07-18 09:17 | EKG ---
Date Performed: 07/17/2017 Time Performed: 22:30:47 PTAGE: 62 years EKG: Sinus rhythm WITH SHORT NV INTERVAL INCOMPLETE RIGHT BUNDLE BRANCH BLOCK SEPTAL MYOCARDIAL INFARCTION ABNORMAL EC G Compared to prior tracing no significant change PREVIOUS TRACING : 12/18/2016 17.58 DOCTOR: Manny Olsen Interpretating Date/Time 07/18/2017 09:16:45
== END 2017-07-18 00:58 | disposition home or self-care (01) ==
LOC: NEPE 20:37
DX: J44.1 Chronic obstructive pulmonary disease with (acute) exacerbation (principal); F17.210 Nicotine dependence, cigarettes, uncomplicated; F25.9 Schizoaffective disorder, unspecified; F31.9 Bipolar disorder, unspecified; R94.31 Abnormal electrocardiogram [ECG] [EKG]
CPT/HCPCS: 71020; 80053; 83605; 85025; 87040; 87070; 87205; 93005; 94640; 94664; 96365; 96375; 99285; J0696; J2930; J7613

== ENCOUNTER 2017-11-19 18:26 | Inpatient (IN) | payer OTHER, MEDICARE ==
[~2017-11-19] VITALS: Ht 182.9 cm; Wt 70.3 kg
[~2017-11-19 18:26] MED LIST changes: +PRED-503 PO; -ZOLO25TA PO
[2017-11-19 18:53] VITALS: BP 135/79; PULSE 65; RESP 16; TEMP 98.4; O2SAT 96
[2017-11-19] MEDS ORDERED: SODIUM CHLOR 0.9% 1000 ML INJ 1,000 ML IV ONE (19:16)
--- NOTE | 2017-11-19 19:29 | PD ---
HPI Chief Complaint: Psychiatric Symptoms Time Seen by Provider: 18:59 Travel History International Travel<30 days: No Contact w/Intl Traveler<30days: No Traveled to known affect area: No History of Present Illness HPI 62-year-old male with history of schizoaffective disorder, bipolar disorder, COPD, presents voluntarily requesting psychiatric evaluation. He reports over the past several months he has had passive homicidal thoughts, auditory and visual hallucinations, increasingly worsening paranoia. He reports that all this started after his psychiatrist Dr. Blood several months ago switched his medication regimen from lithium and Haldol to Zyprexa 20 mg once a day. He reports that he has not spoken recently to Dr. Blood. Symptoms are moderate, constant, no aggravating or relieving factors. He denies any suicidal ideation , drug or alcohol use. During review of systems the patient also reports frequent syncopal episodes over the course of several months. He reports that one occurred today when he was standing up from a sitting position. He complains of generalized pain as well as a headache. He denies any history of seizures. He denies any incontinence, tongue biting. He denies any chest pain , shortness of breath, nausea or vomiting, current dizziness, blurred vision, abdominal pain. He reports that he is seeing his primary care physician, Dr. Booker, about this issue and has some tests ordered this month but he is unsure what specific tests have been ordered. He reports that he currently lives with his brother in a house. He has no other complaints at this time. PFSH Past Medical History Blood Disorders: No Bipolar Disorder: Yes Depression: Yes Cancer: No Cardiovascular Problems: Yes Chest Pain: Yes COPD: Yes Diminished Hearing: Yes ([place] Endocrine: No Gastrointestinal Disorders: No Genitourinary: No Immune Disorder: No Musculoskeletal: Yes (arthritis ) Neurologic: No Psychiatric: Yes (patient has long history of mental health issues) Reproductive: No Respiratory: Yes Schizophrenia: Yes (effective disorder) Past Surgical History Surgical History: No Previous Surgery Other Surgery: No Social History Alcohol Use: No Tobacco Use: Yes (2 PPD) Substance Use: No Allergies-Medications (Allergen,Severity, Reaction): Coded Allergies: No Known Allergies (Unverified Adverse Reaction, Unknown, 11/19/17) Reported Meds & Prescriptions Reported Meds & Active Scripts Active Deltasone (Prednisone) 20 Mg Tab 20 Mg PO BID 5 Days Ventolin Hfa 18 GM Inh (Albuterol Sulfate) 90 Mcg/Act Aer 2 Puff INH Q4H PRN Olanzapine 20 Mg Tab 20 Mg PO HS Ventolin Hfa 18 GM Inh (Albuterol Sulfate) 90 Mcg/Act Aer 2 Puff INH Q4H PRN Reported Trazodone (Trazodone HCl) 100 Mg Tablet 100 Mg PO DAILY Review of Systems Except as stated in HPI: all other systems reviewed are Neg Physical Exam Narrative GENERAL: Disheveled male in no acute distress, vital signs reviewed SKIN: Warm and dry. HEAD: Atraumatic. Normocephalic. EYES: Pupils equal and round. No scleral icterus. No injection or drainage. ENT: No nasal bleeding or discharge. Mucous membranes pink and moist. NECK: Trachea midline. No JVD. CARDIOVASCULAR: Regular rate and rhythm. No murmur appreciated. RESPIRATORY: No accessory muscle use. Clear to auscultation. Breath sounds equal bilaterally. GASTROINTESTINAL: Abdomen soft, non-tender, nondistended. Hepatic and splenic margins not palpable. MUSCULOSKELETAL: No obvious deformities. No clubbing. No cyanosis. No edema. NEUROLOGICAL: Awake and alert. No obvious cranial nerve deficits. Motor grossly within normal limits. Normal speech. PSYCHIATRIC: Appropriate mood and affect; insight and judgment normal. Data Data Last Documented VS Vital Signs Date Time Temp Pulse Resp B/P (MAP) Pulse Ox O2 Delivery O2 Flow Rate FiO2 11/20/17 00:23 67 18 113/69 (84) 96 Room Air 11/19/17 18:53 98.4 Orders Orders Electrocardiogram (11/19/17 19:16) Complete Blood Count With Diff (11/19/17 19:16) Comprehensive Metabolic Panel (11/19/17 19:16) Magnesium (Mg) (11/19/17 19:16) Ckmb (Isoenzyme) Profile (11/19/17 19:16) Troponin I (11/19/17 19:16) Chest, Single Ap (11/19/17 19:16) Ct Brain W/O Iv Contrast(Rout) (11/19/17 19:16) Ecg Monitoring (11/19/17 19:16) Iv Access Insert/Monitor (11/19/17 19:16) Oximetry (11/19/17 19:16) Sodium Chloride 0.9% Flush (Ns Flush) (11/19/17 19:30) Sodium Chlor 0.9% 1000 Ml Inj (Ns 1000 M (11/19/17 19:16) Thyroid Stimulating Hormone (11/19/17 19:16) Drug Screen, Random Urine (11/19/17 19:16) Alcohol (Ethanol) (11/19/17 19:16) Psych Screen (11/19/17 19:16) Albuterol-Ipratropium Neb (Duoneb Neb) (11/19/17 19:30) Orthostatic Vital Signs (11/19/17 19:25) Blood Glucose (11/19/17 19:25) CKMB (11/19/17 19:30) CKMB% (11/19/17 19:30) Chest, Single Ap (11/19/17 ) Dextrose 50% In Manuel (Vial) Inj (D50w (Vi (11/19/17 21:15) Labs Laboratory Tests Test 11/19/17 19:30 11/19/17 21:20 White Blood Count 7.2 TH/MM3 Red Blood Count 4.80 MIL/MM3 Hemoglobin 15.2 GM/DL Hematocrit 44.7 % Mean Corpuscular Volume 93.1 FL Mean Corpuscular Hemoglobin 31.6 PG Mean Corpuscular Hemoglobin Concent 33.9 % Red Cell Distribution Width 13.4 % Platelet Count 167 TH/MM3 Mean Platelet Volume 8.1 FL Neutrophils (%) (Auto) 56.5 % Lymphocytes (%) (Auto) 32.3 % Monocytes (%) (Auto) 9.0 % Eosinophils (%) (Auto) 1.4 % Basophils (%) (Auto) 0.8 % Neutrophils # (Auto) 4.1 TH/MM3 Lymphocytes # (Auto) 2.3 TH/MM3 Monocytes # (Auto) 0.6 TH/MM3 Eosinophils # (Auto) 0.1 TH/MM3 Basophils # (Auto) 0.1 TH/MM3 CBC Comment DIFF FINAL Differential Comment Blood Urea Nitrogen 16 MG/DL Creatinine 1.38 MG/DL Random Glucose 68 MG/DL Total Protein 6.6 GM/DL Albumin 3.3 GM/DL Calcium Level 7.9 MG/DL Magnesium Level 2.0 MG/DL Alkaline Phosphatase 87 U/L Aspartate Amino Transf (AST/SGOT) 24 U/L Alanine Aminotransferase (ALT/SGPT) 23 U/L Total Bilirubin 0.2 MG/DL Sodium Level 140 MEQ/L Potassium Level 4.2 MEQ/L Chloride Level 105 MEQ/L Carbon Dioxide Level 28.9 MEQ/L Anion Gap 6 MEQ/L Estimat Glomerular Filtration Rate 52 ML/MIN Total Creatine Kinase 123 U/L Creatine Kinase MB 3.8 NG/ML Troponin I LESS THAN 0.02 NG/ML Thyroid Stimulating Hormone 3rd Gen 2.380 uIU/ML Ethyl Alcohol Level LESS THAN 3 MG/DL Urine Opiates Screen NEG Urine Barbiturates Screen NEG Urine Amphetamines Screen NEG Urine Benzodiazepines Screen NEG Urine Cocaine Screen NEG Urine Cannabinoids Screen NEG MDM Medical Decision Making Medical Screen Exam Complete: Yes Emergency Medical Condition: Yes Medical Record Reviewed: Yes Differential Diagnosis Medication noncompliance, schizoaffective disorder, schizophrenia, adverse medication effects, bipolar disorder, acute psychosis, substance-induced mood disorder Narrative Course The patient was placed on ECG monitoring and pulse oximetry. 12-lead EKG was obtained. Lab work, chest x-ray, CT brain ordered. Glucose level 68, IV dextrose was administered. The patient was also given IV fluids. CT the brain reveals no acute normalities. Initial chest x-ray was concerning for possible pneumothorax or repeat upright expiratory chest x-ray was obtained revealing no evidence of pneumothorax. The patient's reported syncopal episodes may be related to orthostatic changes versus hypoglycemia. Recommended continuing with outpatient workup as currently scheduled with his primary care physician. He is medically cleared for psychiatric disposition. Diagnosis Primary Impression: Hallucinations Additional Impressions: Paranoia Hypoglycemia Syncope Carson Blanco Nov 19, 2017 19:29
[2017-11-19] MEDS ORDERED: SODIUM CHLORIDE 0.9% FLUSH 10 ML FLUSH IVF PRN (19:30)
[2017-11-19] MEDS: RESP: ALBUTEROL 2.5 MG/IPRATROPIUM 0.5 MG NEB (SCH) INH (19:46)
--- NOTE | 2017-11-19 20:04 | RADRPT ---
EXAM DATE/TIME: 11/19/2017 19:29 [facility] COMPARISON: No previous studies available for comparison. INDICATIONS : Headache, halusination,tingling sensation in all four extremities RADIATION DOSE: 56.35 CTDIvol (mGy) MEDICAL HISTORY : Cardiovascular disease. Chronic obstructive pulmonary disease. SURGICAL HISTORY : None. ENCOUNTER: Initial ACUITY: 1 day PAIN SCALE: 0/10 LOCATION: cranial TECHNIQUE: Multiple contiguous axial images were obtained of the head. Using automated exposure control and adj ustment of the mA and/or kV according to patient size, radiation dose was kept as low as reasonably a chievable to obtain optimal diagnostic quality images. DICOM format image data is available electro nically for review and comparison. FINDINGS: CEREBRUM: The ventricles are normal for age. No evidence of midline shift, mass lesion, hemorrhage or acute in farction. No extra-axial fluid collections are seen. POSTERIOR FOSSA: The cerebellum and brainstem are intact. The 4th ventricle is midline. The cerebellopontine angle i s unremarkable. EXTRACRANIAL: The visualized portion of the orbits is intact. SKULL: The calvaria is intact. No evidence of skull fracture. CONCLUSION: 1. Negative noncontrast CT of the brain. Milton Britt MD on November 19, 2017 at 20:02 Board Certified Radiologist. This report was verified electronically.
--- NOTE | 2017-11-19 20:10 | RADRPT ---
EXAM DATE/TIME: 11/19/2017 19:36 [facility] COMPARISON: No previous studies available for comparison. INDICATIONS : Syncopal episode and shortness of breath. MEDICAL HISTORY : Emphysema. SURGICAL HISTORY : None. ENCOUNTER: Initial ACUITY: 3 days PAIN SCORE: 0/10 LOCATION: chest FINDINGS: Frontal semierect portable view of the chest demonstrates a possible pleural reflection laterally in the right upper lung suggesting possible pneumothorax measuring up to 9 mm of separation, but not con firmed at the apex. A 2nd view centered lower, also AP, does not confirm this pleural reflection. T he lungs are clear without focal infiltrate. The heart is normal size. Both hemidiaphragms will del ineated. CONCLUSION: Equivocal finding suggesting the possibility of a right pneumothorax. Recommend repeat film, fully e rect and in expiration, for further evaluation. Milton Britt MD on November 19, 2017 at 20:06 Board Certified Radiologist. This report was verified electronically.
[2017-11-19 20:32] LABS: AUTOMATED NEUTROPHIL # 4.1 TH/MM3 (1.8-7.7); BASOPHIL # 0.1 TH/MM3 (0-0.2); BASOPHIL % 0.8 % (0.0-2.0); EOSINOPHIL # 0.1 TH/MM3 (0-0.4); EOSINOPHIL % 1.4 % (0.0-4.0); HEMATOCRIT 44.7 % (39.0-51.0); HEMOGLOBIN 15.2 GM/DL (13.0-17.0); LYMPH % 32.3 % (9.0-44.0); LYMPHOCYTE # 2.3 TH/MM3 (1.0-4.8); MEAN CELL VOLUME 93.1 FL (80.0-100.0); MEAN CORPUSCULAR HEMOGLOBIN 31.6 PG (27.0-34.0); MEAN CORPUSCULAR HGB CONC 33.9 % (32.0-36.0); MEAN PLATELET VOLUME 8.1 FL (7.0-11.0); MONOCYTE # 0.6 TH/MM3 (0-0.9); NEUT % 56.5 % (16.0-70.0); PLATELET COUNT 167 TH/MM3 (150-450); RED CELL DISTRIBUTION WIDTH 13.4 % (11.6-17.2); WHITE BLOOD COUNT 7.2 TH/MM3 (4.0-11.0)
[2017-11-19 20:50] LABS: ALBUMIN 3.3 GM/DL (3.4-5.0); AST (GOT) 24 U/L (15-37); BICARBONATE 28.9 MEQ/L (21.0-32.0); BLOOD UREA NITROGEN 16 MG/DL (7-18); CALCIUM 7.9 MG/DL (8.5-10.1); CHLORIDE 105 MEQ/L (98-107); CREATININE 1.38 MG/DL (0.60-1.30); GLOMERULAR FILTRATION RATE 52 ML/MIN (>89); GLUCOSE,RANDOM 68 MG/DL (74-106); SODIUM (NA) 140 MEQ/L (136-145)
[2017-11-19 21:03] LABS: ALKALINE PHOSPHATASE 87 U/L (45-117); ALT (GPT) 23 U/L (12-78); TOTAL BILIRUBIN ADULT 0.2 MG/DL (0.2-1.0); TOTAL PROTEIN 6.6 GM/DL (6.4-8.2); TROPONIN I LESS THAN 0.02 NG/ML (0.02-0.05)
[2017-11-19] MEDS ORDERED: DEXTROSE 50% IN WATER 50 ML VIAL(D50) IV PUSH ONE (21:15)
[2017-11-19 21:16] VITALS: BP_SYST 116; BP_SYST 119; BP_SYST 92; BP_DIAS 67; RESP 18; RESP 20
--- NOTE | 2017-11-19 22:23 | RADRPT ---
EXAM DATE/TIME: 11/19/2017 21:25 [facility] COMPARISON: CHEST SINGLE AP, November 19, 2017, 19:36. INDICATIONS : Short of breath. MEDICAL HISTORY : Emphysema. Cardiovascular disease. Chronic obstructive pulmonary disease. SURGICAL HISTORY : None. ENCOUNTER: Subsequent ACUITY: 1 day PAIN SCORE: 0/10 LOCATION: Bilateral chest FINDINGS: Expiratory view of the chest inserts the lungs to be symmetrically aerated. No pneumothorax seen. N o evidence of mediastinal shift. CONCLUSION: No evidence of right pneumothorax on this expiratory view of the chest. Milton Britt MD on November 19, 2017 at 22:21 Board Certified Radiologist. This report was verified electronically.
[2017-11-20 00:23] VITALS: BP 113/69; PULSE 67; RESP 18; O2SAT 96
[2017-11-20 08:04] VITALS: BP 119/79; PULSE 62; RESP 16; O2SAT 98
--- NOTE | 2017-11-20 15:26 | PD ---
History of Present Illness Chief Complaint: Psychiatric Symptoms Time Seen by Provider: 14:30 Travel History International Travel<30 Days: No Contact w/Intl Traveler<30days: No Known affected area: No Legal Status Legal Status: Voluntary History of Present Illness: History of Present Illness HPI 62-year-old single, white male with history of bipolar disorder who presents voluntarily requesting a psychiatric evaluation. As per the ED note which is reviewed and partially included in this report " he reports over the past several months he has had passive homicidal thoughts, auditory and visual hallucinations, increasingly worsening paranoia. He reports that all this started after his psychiatrist Dr. Blood several months ago switched his medication regimen from lithium and Haldol to Zyprexa 20 mg once a day." The patient tells me that he has been medication compliant and that he last took his medications approximately 3 days ago. He also reports that approximately 2 months ago he had a manic episode in which he describes himself as" I went cuckoo, I spend a lot of money, I bought a car that I can afford, I had a lot of energy, started 20 projects and didn't finish any of them." According to his report he has been taking Zyprexa 20 mg once a day. He attempted to see Dr. Sanchez yesterday but they were unable to see him so he came to the hospital. He also states that he had an episode last night in which he fell asleep for a little while woke up and had a difficult time remembering where he was or even his own identity and that he had to look into his wallet to remind himself. He is also reporting that he is feeling depressed now and experiencing overwhelming feeling of impending doom, as well as feeling anxious. He is afraid that he is going to" crash pretty soon." The patient's speech is clear, logical and goal-directed. There is no evidence of any psychosis, I can elicit no delusions, no paranoia. He denies any suicidal or homicidal ideation, intent or plan. Patient does not present any symptom of rosibel or hypomania at this time. Mood is described as depressed. Reports that he is sleeping fair, appetite okay. Patient is requesting inpatient psychiatric hospitalization for medication adjustment leaves that his current psychiatric medications and aren't managing his psychiatric symptoms. Recent stressors include having moved from an [facility] and now living with his brother and his brother's . EMR is reviewed. His last psychiatric hospitalization was at [facility] in March 2017. Current toxicology is negative for any substances. I contacted Dr. Bland office to inform them the patient presented to [facility]. No other information provided. PFSH Past Medical History Blood Disorders: No Bipolar Disorder: Yes Depression: Yes Cancer: No Cardiovascular Problems: Yes Chest Pain: Yes COPD: Yes Diminished Hearing: Yes ([place]) Endocrine: No Gastrointestinal Disorders: No Genitourinary: No Immune Disorder: No Musculoskeletal: Yes (arthritis ) Neurologic: No Psychiatric: Yes (patient has long history of mental health issues) Reproductive: No Respiratory: Yes Schizophrenia: Yes (effective disorder) Past Surgical History Surgical History: No Previous Surgery Other Surgery: No Psychiatric History Psychiatric History Hx Psychiatric Treatment: Patient states that in the 's he had multiple hospital visits due to psychiatric issues. Last psychiatric hospitalization in July 2017. Patient sees Dr. Blood on outpatient basis. Reports medication compliance. History of Inpatient Treatment: Yes Guns or firearms in home: No Social History Single, male. Lives with his brother and the brothers . He is unemployed and on Social Security. He has been living with his brother for the past 2 weeks. Previously to that he was at an [facility]. Hx Alcohol Use: No Hx Tobacco Use: Yes (1/2 PPD) Hx Substance Use: No (PT DENIES) Hx of Substance Use Treatment: No Family Psychiatric History Negative Allergies-Medications (Allergen,Severity, Reaction): Coded Allergies: No Known Allergies (Unverified Adverse Reaction, Unknown, 11/19/17) Reported Meds & Prescriptions Reported Meds & Active Scripts Active Deltasone (Prednisone) 20 Mg Tab 20 Mg PO BID 5 Days Ventolin Hfa 18 GM Inh (Albuterol Sulfate) 90 Mcg/Act Aer 2 Puff INH Q4H PRN Olanzapine 20 Mg Tab 20 Mg PO HS Ventolin Hfa 18 GM Inh (Albuterol Sulfate) 90 Mcg/Act Aer 2 Puff INH Q4H PRN Reported Trazodone (Trazodone HCl) 100 Mg Tablet 100 Mg PO DAILY Review of Systems Eyes: COMPLAINS OF: Vision loss Psychiatric: COMPLAINS OF: Mood changes Mental Status Examination Appearance: Appropriate (demonstrates fair hygiene and grooming) Consciousness: Alert Orientation: x4 Motor Activity: Normal gait Speech: Unremarkable Language: Adequate Fund of Knowledge: Adequate Attention and Concentration: Adequate Memory: Unremarkable Mood: Sad Affect: Appropriate Thought Process & Associations: Intact Thought Content: Appropriate Hallucination Type: None Delusion Type: None Suicidal Ideation: No Suicidal Plan: No Suicidal Intention: No Homicidal Ideation: No Homicidal Plan: No Homicidal Intention: No Insight: Fair Judgment: Impulsive MDM Medical Decision Making Medical Record Reviewed: Yes Assessment/Plan 62-year-old single, white male with history of bipolar disorder who presents voluntarily requesting a psychiatric evaluation. Patient reported to ED provider that he had been experiencing increased and passive homicidal thoughts , auditory of visual hallucinations as well as paranoia. However he denied those symptoms to me. He did report that he has been having mood lability. Feeling more depressed. More anxious with overwhelming feeling of impending doom, has not taken his medication in the past 3 days. Patient believes that current psychiatric medication are not adequately managing his symptoms. He attempted to get an appointment with his outpatient psychiatrist this was unable to be seen on an outpatient basis. He is requesting hospitalization for medication adjustment and would like to consider other medication besides Zyprexa as he believes that it has not been working well for him. At this time the patient will be admitted to inpatient psychiatry for further evaluation, stabilization and medication adjustment. Orders Orders Electrocardiogram (11/19/17 19:16) Complete Blood Count With Diff (11/19/17 19:16) Comprehensive Metabolic Panel (11/19/17 19:16) Magnesium (Mg) (11/19/17 19:16) Ckmb (Isoenzyme) Profile (11/19/17 19:16) Troponin I (11/19/17 19:16) Chest, Single Ap (11/19/17 19:16) Ct Brain W/O Iv Contrast(Rout) (11/19/17 19:16) Ecg Monitoring (11/19/17 19:16) Iv Access Insert/Monitor (11/19/17 19:16) Oximetry (11/19/17 19:16) Sodium Chloride 0.9% Flush (Ns Flush) (11/19/17 19:30) Sodium Chlor 0.9% 1000 Ml Inj (Ns 1000 M (11/19/17 19:16) Thyroid Stimulating Hormone (11/19/17 19:16) Drug Screen, Random Urine (11/19/17 19:16) Alcohol (Ethanol) (11/19/17 19:16) Psych Screen (11/19/17 19:16) Albuterol-Ipratropium Neb (Duoneb Neb) (11/19/17 19:30) Orthostatic Vital Signs (11/19/17 19:25) Blood Glucose (11/19/17 19:25) CKMB (11/19/17 19:30) CKMB% (11/19/17 19:30) Chest, Single Ap (11/19/17 ) Dextrose 50% In Manuel (Vial) Inj (D50w (Vi (11/19/17 21:15) Diet Regular Basic (11/20/17 Breakfast) Results Vital Signs Date Time Temp Pulse Resp B/P (MAP) Pulse Ox O2 Delivery O2 Flow Rate FiO2 11/20/17 08:04 62 16 119/79 (92) 98 Room Air 11/20/17 00:23 67 18 113/69 (84) 96 Room Air 11/19/17 21:16 79 18 119/67 (84) 82 18 116/67 (83) 87 20 92/67 (75) 11/19/17 19:01 18 11/19/17 18:53 98.4 65 16 135/79 (97) 96 Laboratory Tests Test 11/19/17 19:30 11/19/17 21:20 White Blood Count 7.2 Red Blood Count 4.80 Hemoglobin 15.2 Hematocrit 44.7 Mean Corpuscular Volume 93.1 Mean Corpuscular Hemoglobin 31.6 Mean Corpuscular Hemoglobin Concent 33.9 Red Cell Distribution Width 13.4 Platelet Count 167 Mean Platelet Volume 8.1 Neutrophils (%) (Auto) 56.5 Lymphocytes (%) (Auto) 32.3 Monocytes (%) (Auto) 9.0 Eosinophils (%) (Auto) 1.4 Basophils (%) (Auto) 0.8 Neutrophils # (Auto) 4.1 Lymphocytes # (Auto) 2.3 Monocytes # (Auto) 0.6 Eosinophils # (Auto) 0.1 Basophils # (Auto) 0.1 CBC Comment DIFF FINAL Differential Comment Blood Urea Nitrogen 16 Creatinine 1.38 Random Glucose 68 Total Protein 6.6 Albumin 3.3 Calcium Level 7.9 Magnesium Level 2.0 Alkaline Phosphatase 87 Aspartate Amino Transf (AST/SGOT) 24 Alanine Aminotransferase (ALT/SGPT) 23 Total Bilirubin 0.2 Sodium Level 140 Potassium Level 4.2 Chloride Level 105 Carbon Dioxide Level 28.9 Anion Gap 6 Estimat Glomerular Filtration Rate 52 Total Creatine Kinase 123 Creatine Kinase MB 3.8 Troponin I LESS THAN 0.02 Thyroid Stimulating Hormone 3rd Gen 2.380 Ethyl Alcohol Level LESS THAN 3 Urine Opiates Screen NEG Urine Barbiturates Screen NEG Urine Amphetamines Screen NEG Urine Benzodiazepines Screen NEG Urine Cocaine Screen NEG Urine Cannabinoids Screen NEG Diagnosis Primary Impression: Bipolar disorder Admitting Information Admitting Physician Requests: Admit Problem Qualifiers Primary Impression: Bipolar disorder Qualified Codes: F31.62 - Bipolar disorder, current episode mixed, moderate Goodrich,Anna Estefani Casper [facility] Nov 20, 2017 15:26
[2017-11-20] MEDS ORDERED: ALUMINUM/MAGNESIUM/SIMETH 30 ML CUP PO PRN (15:30)
[2017-11-20] MEDS ORDERED: MAGNESIUM HYDROXIDE SUSP 30 ML CUP PO PRN (15:30)
[2017-11-20] MEDS ORDERED: ACETAMINOPHEN 325 MG TAB PO PRN (15:30)
[2017-11-20 15:44] VITALS: BP 126/72; PULSE 80; RESP 16; TEMP 97; O2SAT 95
[2017-11-20 17:52] VITALS: BP_SYST 145; BP_SYST 178; BP_DIAS 110; BP_DIAS 60; PULSE 79; RESP 18; TEMP 98.3; O2SAT 98
[2017-11-20] MEDS: NICOTINE 21 MG/24 HR PATCH T-DERMAL SCH (18:00)
--- NOTE | 2017-11-20 21:27 | EKG ---
Date Performed: 11/19/2017 Time Performed: 20:09:26 PTAGE: 62 years EKG: Sinus rhythm WITH SHORT AK INTERVAL INCOMPLETE RIGHT BUNDLE BRANCH BLOCK BORDERLINE ECG PREVIOUS TRACING : 11/13/2017 23.38 No significant change from previous tracing noted. DOCTOR: Micah Bloom Interpretating Date/Time 11/20/2017 21:26:54
[2017-11-21 07:16] VITALS: BP 137/80; PULSE 77; RESP 17; TEMP 98.2; O2SAT 96
[2017-11-21] MEDS: REMOVE OLD PATCH T-DERMAL SCH (09:00)
[2017-11-21] MEDS: NICOTINE 21 MG/24 HR PATCH T-DERMAL SCH (09:00)
[2017-11-21 10:19] LABS: BLOOD UREA NITROGEN 17 MG/DL (7-18); CALCIUM 9.3 MG/DL (8.5-10.1); CHLORIDE 104 MEQ/L (98-107); CREATININE 1.39 MG/DL (0.60-1.30); GLOMERULAR FILTRATION RATE 52 ML/MIN (>89); GLUCOSE,RANDOM 98 MG/DL (74-106); SODIUM (NA) 140 MEQ/L (136-145)
[2017-11-21 10:22] LABS: CHOLESTEROL 182 MG/DL (120-200); TRIGLYCERIDES 120 MG/DL (42-150)
[2017-11-21] MEDS ORDERED: hydrOXYzine HCL 50 MG TAB PO PRN (10:45)
[2017-11-21] MEDS ORDERED: ALBUTEROL SULFATE 90 MCG/ACT HFA 8 GM INHALER INH PRN (10:45)
[2017-11-21] MEDS: SERTRALINE HCL 50 MG TAB PO SCH (10:45)
[2017-11-21 10:47] LABS: CHOLESTEROL/ HDL RATIO 3.98 RATIO; HDL CHOLESTEROL 45.7 MG/DL (40.0-60.0); LDL CHOLESTEROL 112 MG/DL (0-99)
--- NOTE | 2017-11-21 10:58 | HHI.HP ---
Provisional Diagnosis Admission Date Nov 20, 2017 at 15:32 [place] I. 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 Express and informed consent means consent voluntarily given in writing, by a competent person, after sufficient explanation and disclosure of the subject matter involved to enable the person to make a knowing and willful decision without any element of force, fraud, deceit, duress, or other form of constraint or coercion. This person is 18 years of age or older, is not now known to be incompetent to consent to treatment with a guardian advocate, and does not have a health care surrogate or proxy currently making medical treatment decisions. I have found this person to be one of the following: []xxx Competent to provide express and informed consent, as defined above, for voluntary admission to this facility and is competent to provide express and informed consent for treatment. He/she has the consistent capacity to make well reasoned, willful, and knowing decisions concerning his or her medical or mental health treatment. The person fully and consistently understands the purpose of the admission for examination/placement and is fully capable of personally exercising all rights assured under [place] Incompetent to provide express and informed consent to voluntary admission, and this is incompetent to provide express and informed consent to treatment. The person must be transferred to involuntary status and a petition for a guardian advocate filed with the Circuit Court. [] Refusing to provide express and informed consent to voluntary admission but is competent to provide express and informed consent for treatment. The person must be discharged or transferred to involuntary status. Form shall be completed within 24 hours of a person's arrival at the receiving facility and filed in the clinical record of each person: 1. Admitted on a voluntary basis 2. Permitted to provide express and informed consent to his/her own treatment 3. Allowed to transfer from involuntary to voluntary status 4. Prior to permitting a person to consent to his or her own treatment after having been previously found incompetent to consent to treatment. History of Present Illness Capacity: Has Capacity Psych Chief Complaint: depression with increased auditory hallucinations HPI Patient is a 59 through white [place] [facility] voluntary complaining of increased depression with intense increasing auditory hallucinations of threatening nature, patient compliance medication. Patient seen screened in the ED urine toxicology negative for alcohol level negative. Of interest patient seen by pa inpatient psychiatric unit 03/21/17 through . With history of depression auditory hallucinations and vague suicidality. He was discharged on Zyprexa 20 mg at at bedtime. It appears after that patient went to [facility] than there only a few months said he was upset by the restrictive environment of that facility. He then wound up with a friend briefly and then recently has been staying with his brother and . Says that is a fairly good situation for him. He was followed up by nurse practitioner in the community. Though since leaving guarded manner he has been showing mixed compliance with his medication. I have it increased auditory hallucinations of threatening intimidating disturbing nature. Though he denies specific suicidal thoughts. He denies any alcohol or drugs related to this. He acknowledges increased initial and mid insomnia, a.m. anergy, decreased energy and concentration, decreased appetite with a couple of pound weight loss. He complains of vague numbness and tingling in all 4 extremities. (We will have hospitalist consult with us). Patient denies any physical or sexual abuse as a child. They missed the baby some mental health issues in his family of origin. 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 At this time patient does meet criteria for inpatient psychiatric hospitalization on a voluntary basis. I'll restart him on his Zyprexa 20 mg at bedtime will also add Zoloft 50 mg the morning, and Atarax on a when necessary basis. We will have the hospitalist consult with us. Hopeless. Fairly short stay in returned to his family home with follow-up services of the community Review of Systems Constitutional: DENIES: Diaphoretic episodes, Fatigue, Fever, Weight gain, Weight loss, Chills, Dizziness, Change in appetite, Night Sweats Endocrine: DENIES: Heat/cold intolerance, Polydipsia, Polyuria, Polyphagia Eyes: DENIES: Blurred vision, Diplopia, Eye inflammation, Eye pain, Vision loss , Photosensitivity, Double Vision Ears, nose, mouth, throat: DENIES: Tinnitus, Hearing loss, Vertigo, Nasal discharge, Oral lesions, Throat pain, Hoarseness, Ear Pain, Running Nose, Epistaxis, Sinus Pain, Toothache, Odynophagia Respiratory: DENIES: Apneas, Cough, Snoring, Wheezing, Hemoptysis, Sputum production, Shortness of breath Cardiovascular: DENIES: Chest pain, Palpitations, Syncope, Dyspnea on Exertion , PND, Lower Extremity Edema, Orthopnea, Claudication Gastrointestinal: DENIES: Abdominal pain, Black stools, Bloody stools, Constipation, Diarrhea, Nausea, Vomiting, Difficulty Swallowing, Anorexia Genitourinary: DENIES: Sexual dysfunction, Urinary frequency, Urinary incontinence, Urgency, Hematuria, Dysuria, Nocturia, Penile Discharge, Testicular Pain, Testicular Swelling Musculoskeletal: DENIES: Joint pain, Muscle aches, Stiffness, Joint Swelling, Back pain, Neck pain Integumentary: DENIES: Abnormal pigmentation, Nail changes, Pruritus, Rash Hematologic/lymphatic: DENIES: Bruising, Lymphadenopathy Immunologic/allergic: DENIES: Eczema, Urticaria Neurologic: DENIES: Abnormal gait, Headache, Localized weakness, Paresthesias, Seizures, Speech Problems, Tremor, Poor Balance Psychiatric: COMPLAINS OF: Anxiety, Depression, Hallucinations, Suicidal Ideation (denies at this time) Past Psych History Psychological trauma history Denies at this time Violence risk - others (6 mos) Low Violence risk - self (6 mos) Low to moderate Substance Abuse History Drugs/Alcohol past 12 months Denies Past Family Social History Coded Allergies: No Known Allergies (Unverified Adverse Reaction, Unknown, 11/19/17) Active Scripts Albuterol 18 GM Inh (Ventolin Hfa 18 GM Inh) 90 Mcg/Act Aer, 2 PUFF INH Q4H Y for SHORTNESS OF BREATH, #1 INHALER 0 Refills Prov:Brigette Liang DO 07/18/17 Olanzapine (Olanzapine) 20 Mg Tab, 20 MG PO HS for health, #30 TAB 0 Refills Prov:Baldev Cross MD 04/03/17 Reported Medications Trazodone (Trazodone) 100 Mg Tablet, 100 MG PO DAILY for Control Depression, # 30 TAB 0 Refills 03/21/17 Discontinued Scripts Prednisone (Deltasone) 20 Mg Tab, 20 MG PO BID for 5 Days, #10 TAB 0 Refills Prov:Brigette Liang DO 07/18/17 Albuterol 18 GM Inh (Ventolin Hfa 18 GM Inh) 90 Mcg/Act Aer, 2 PUFF INH Q4H Y for SHORTNESS OF BREATH, #1 INHALER 0 Refills Prov:Jenni Miranda MD 12/20/16 Current Medications Medications (Trade) Dose Ordered Sig/Edward Route Start Time Stop Time Status Last Admin (NS Flush) 2 ml UNSCH PRN IVF 11/19/17 19:30 (Tylenol) 650 mg Q4H PRN PO 11/20/17 15:30 (Milk Of Magnesia Liq) 30 ml DAILY PRN PO 11/20/17 15:30 (Mag-Al Plus Susp Liq) 30 ml Q6H PRN PO 11/20/17 15:30 (Habitrol 21 Mg Patch.24 Hr) 1 patch DAILY T-DERMAL 11/20/17 17:00 11/20/17 18:00 Miscellaneous Information 1 DAILY T-DERMAL 11/21/17 09:00 Family Psych History Patient states history mental health issues and family of origin Social History Patient living with his brother Patient's Strengths (min. 2) Patient verbal able access healthcare Physical Exam Patient medically cleared through ED at the present time patient sitting quietly in his room on 2500. He is in no acute distress, he is in no respiratory distress, no complaints about abdominal pain. Patient moves all 4 extremities without difficulty no abnormal motor movements noted Vital Signs Vital Signs Date Time Temp Pulse Resp B/P (MAP) Pulse Ox O2 Delivery O2 Flow Rate FiO2 11/21/17 07:16 98.2 77 17 137/80 (99) 96 11/20/17 15:44 Room Air Lab Results Test 11/21/17 08:49 Blood Urea Nitrogen 17 MG/DL Creatinine 1.39 MG/DL Random Glucose 98 MG/DL Calcium Level 9.3 MG/DL Sodium Level 140 MEQ/L Potassium Level 3.9 MEQ/L Chloride Level 104 MEQ/L Carbon Dioxide Level 30.0 MEQ/L Anion Gap 6 MEQ/L Estimat Glomerular Filtration Rate 52 ML/MIN Triglycerides Level 120 MG/DL Cholesterol Level 182 MG/DL LDL Cholesterol 112 MG/DL HDL Cholesterol 45.7 MG/DL Cholesterol/HDL Ratio 3.98 RATIO Vitamin B12 Level 504 PG/ML Mental Status Examination Appearance: Appropriate (demonstrates fair hygiene and grooming) Consciousness: Alert Orientation: x4 Motor Activity: Normal gait Speech: Unremarkable Language: Adequate Fund of Knowledge: Adequate Attention and Concentration: Adequate Memory: Unremarkable Mood: Sad Affect: Appropriate Thought Process & Associations: Intact Thought Content: Appropriate, Hallucinations (intrusive demanding intimidating auditory hallucinations) Hallucination Type: Auditory Delusion Type: None Suicidal Ideation: No Suicidal Plan: No Suicidal Intention: No Homicidal Ideation: No Homicidal Plan: No Homicidal Intention: No Insight: Fair Judgment: Impulsive Assessment & Plan Problem List: (1) Depression, major, recurrent, severe with psychosis ICD Codes: F33.3 - Major depressive disorder, recurrent, severe with psychotic symptoms Assessment & Plan Estimated LOS: days at this time patient doesn't meet criteria for inpatient psychiatric hospitalization. I feel he is capacity thus I'll allow her sign voluntary. We'll continue medication per the med reconciliation will also add Zoloft 50 mg daily continue the hospitalist consult. Discharge Planning Possible return home with brother Request HC Surrog/Guard Advoc?: Baldev Hastings MD Nov 21, 2017 10:58
--- NOTE | 2017-11-21 12:35 | PD.CONS ---
HPI Service [facility] Hospitalists Consult Requested By Psychiatric services Reason for Consult Medical management Primary Care Physician Delmy Booker MD Diagnoses: History of Present Illness Written by Jenni Solorzano, acting as scribe for Dr. Parker on 11/21/17 at 12:35. This is a 62 year old male with past medical history significant for bipolar disorder, COPD and ongoing tobaccoism who presented voluntarily to [facility] ED requesting psychiatric evaluation due to ongoing homicidal thoughts, auditory and visual hallucinations and increasing paranoia. Patient has been admitted to inpatient psychiatry unit and hospitalist services have been consulted for medical management. While in the ED, patient reported frequent syncopal episodes that occur when going from sitting to standing. Patient reports cough and wheezing. He states he was recently treated for pneumonia completing a course of antibiotics 3 or 4 months ago. He denies any fever or chills. Denies any chest pain or shortness of breath. He denies nausea, vomiting or abdominal pain. He does report numbness in both feet. Review of Systems Psychiatric: COMPLAINS OF: Anxiety Except as stated in HPI: all other systems reviewed are Neg Past Family Social History Allergies: Coded Allergies: No Known Allergies (Unverified Adverse Reaction, Unknown, 11/19/17) Past Medical History COPD Bipolar disorder Past Surgical History Patient denies any previous surgeries Reported Medications Reported Meds & Active Scripts Active Ventolin Hfa 18 GM Inh (Albuterol Sulfate) 90 Mcg/Act Aer 2 Puff INH Q4H PRN Olanzapine 20 Mg Tab 20 Mg PO HS Reported Trazodone (Trazodone HCl) 100 Mg Tablet 100 Mg PO DAILY Active Ordered Medications Current Medications Medications (Trade) Dose Ordered Sig/Edward Route Start Time Stop Time Status Last Admin (NS Flush) 2 ml UNSCH PRN IVF 11/19/17 19:30 (Tylenol) 650 mg Q4H PRN PO 11/20/17 15:30 (Milk Of Magnesia Liq) 30 ml DAILY PRN PO 11/20/17 15:30 (Mag-Al Plus Susp Liq) 30 ml Q6H PRN PO 11/20/17 15:30 (Habitrol 21 Mg Patch.24 Hr) 1 patch DAILY T-DERMAL 11/20/17 17:00 11/21/17 09:00 Miscellaneous Information 1 DAILY T-DERMAL 11/21/17 09:00 (Atarax) 50 mg Q6H PRN PO 11/21/17 10:45 (Proair Hfa Inh) 2 puff Q4H PRN INH 11/21/17 10:45 (ZyPREXA) 20 mg HS PO 11/21/17 21:00 (Zoloft) 50 mg DAILY PO 11/21/17 10:45 11/21/17 10:45 Family History Mother, pulmonary problems Social History Patient has a history of tobacco use of 1ppd x 40 years. He denies any alcohol consumption or illicit drug use in 28 years. Physical Exam Vital Signs Vital Signs Date Time Temp Pulse Resp B/P (MAP) Pulse Ox O2 Delivery O2 Flow Rate FiO2 11/21/17 07:16 98.2 77 17 137/80 (99) 96 11/20/17 17:52 98.3 79 18 145/60 (88) 98 11/20/17 16:30 11/20/17 15:44 97.0 80 16 126/72 (90) 95 Room Air Physical Exam GENERAL: This is a well-nourished, well-developed male patient, in no apparent distress. Awake and alert. SKIN: No rashes, ecchymoses or lesions. Cool and dry. HEAD: Atraumatic. Normocephalic. No temporal or scalp tenderness. EYES: Pupils equal round and reactive. Extraocular motions intact. No scleral icterus. No injection or drainage. ENT: Nose without bleeding or purulent drainage. Throat without erythema, tonsillar hypertrophy or exudate. Uvula midline. Airway patent. NECK: Trachea midline. No lymphadenopathy. Supple, nontender, no meningeal signs. CARDIOVASCULAR: Regular rate and rhythm without murmurs, gallops, or rubs. RESPIRATORY: Diminished breath sounds. (+)Rhonchi. Wheezing noted in multiple lung horvath. GASTROINTESTINAL: Abdomen soft, non-tender, nondistended. No hepato-splenomegaly , or palpable masses. No guarding. MUSCULOSKELETAL: Extremities without clubbing, cyanosis, or edema. No joint tenderness, effusion, or edema noted. No calf tenderness. NEUROLOGICAL: Awake and alert. Cranial nerves II through XII grossly intact. Motor and sensory grossly within normal limits except for decreased sensation bilateral feet. Five out of 5 muscle strength in all muscle groups. Normal speech. Laboratory Laboratory Tests Test 11/21/17 08:49 Blood Urea Nitrogen 17 Creatinine 1.39 Random Glucose 98 Calcium Level 9.3 Sodium Level 140 Potassium Level 3.9 Chloride Level 104 Carbon Dioxide Level 30.0 Anion Gap 6 Estimat Glomerular Filtration Rate 52 Triglycerides Level 120 Cholesterol Level 182 LDL Cholesterol 112 HDL Cholesterol 45.7 Cholesterol/HDL Ratio 3.98 Vitamin B12 Level 504 25-Hydroxy Vitamin D Total 21.8 Result Diagram: 11/19/17192911/21/17 0849 Imaging Last Impressions Head CT 11/19/171915 Signed Impressions: Service Date/Time: Sunday, November 19, 2017 19:29 - CONCLUSION: 1. Negative noncontrast CT of the brain. Milton Britt MD Chest X-Ray 11/19/171915 Signed Impressions: Service Date/Time: Sunday, November 19, 2017 19:36 - CONCLUSION: Equivocal finding suggesting the possibility of a right pneumothorax. Recommend repeat film, fully erect and in expiration, for further evaluation. Milton Britt MD Assessment and Plan Assessment and Plan 62 year old male with past medical history significant for bipolar disorder, COPD and ongoing tobaccoism who presented voluntarily to [facility] ED requesting psychiatric evaluation due to ongoing homicidal thoughts, auditory and visual hallucinations and increasing paranoia. Patient has been admitted to inpatient psychiatry unit and hospitalist services have been consulted for medical management. Paranoia Homicidal thoughts Auditory and visual hallucinations Bipolar disorder -Management per psychiatric team COPD, in acute exacerbation Recently treated for PNA 3-4 mos ago Concern for underlying pneumonia Ongoing tobaccoism -Discussed smoking cessation -CXR unremarkable, images reviewed by me -Scheduled DuoNeb's -Azithromycin po -Prednisone 20mg BID x 4 days -Mucinex BID -Begin Symbicort 2 puffs twice a day CKD -Creatinine appears to be at baseline -Avoid nephrotoxic agent -Monitor renal indices as indicated Bilateral feet numbness -B12 level 504 -A1c pending Vitamin D deficiency -Start by mouth vitamin D supplementation daily -Patiently to follow-up with PCP in 2-3 months to repeat vitamin D level DVT prophylaxis -Patient is ambulatory Thank you very kindly for this consultation. We'll continue to follow patient along with you. This note was transcribed by EMILE Mcgee. I, Dr. Debo Parker personally performed the history, physical exam, and medical decision making; and confirmed the accuracy of the information in the transcribed note. Authenticated by Dr. Debo Parker on 11/21/17 at 12:35. Discussed Condition With patient, nursing staff Jenni Solorzano Nov 21, 2017 12:35 Debo Parker MD Nov 21, 2017 13:30
[2017-11-21] MEDS ORDERED: RESP: ALBUTEROL 2.5 MG/3 ML NEB (PRN) NEB (13:15)
[2017-11-21] MEDS ORDERED: AZITHROMYCIN 250 MG TAB PO ONE (13:15)
[2017-11-21] MEDS ORDERED: RESP: ALBUTEROL 2.5 MG/IPRATROPIUM 0.5 MG NEB (SCH) NEB ONE (13:15)
[2017-11-21] MEDS ORDERED: LEVOFLOXACIN 750 MG TAB PO ONE (13:15)
[2017-11-21] MEDS: predniSONE 20 MG TAB PO SCH ×2 (15:40→21:00)
[2017-11-21] MEDS: BUDESONIDE-FORMOTEROL 160/4.5 MCG INHALER INH SCH ×2 (15:41→21:00)
[2017-11-21 16:29] LABS: HEMOGLOBIN A1C 6.1 % (4.3-6.0)
[2017-11-21] MEDS: RESP: ALBUTEROL 2.5 MG/IPRATROPIUM 0.5 MG NEB (SCH) NEB ×2 (17:29→20:00)
[2017-11-21 18:44] VITALS: BP 133/76; PULSE 81; RESP 18; TEMP 98.3; O2SAT 95
[2017-11-21] MEDS: OLANZapine 10 MG TAB PO SCH (21:00)
[2017-11-21] MEDS: guaiFENesin E.R. 600 MG TAB PO SCH (21:00)
[2017-11-22 06:00] VITALS: BP 108/65; PULSE 87; RESP 17; TEMP 97.5; O2SAT 97
[2017-11-22] MEDS: RESP: ALBUTEROL 2.5 MG/IPRATROPIUM 0.5 MG NEB (SCH) NEB ×4 (08:00→20:59)
[2017-11-22] MEDS: CHOLECALCIFEROL (VIT D3) 1000 UNIT TAB PO SCH (08:22)
[2017-11-22] MEDS: SERTRALINE HCL 50 MG TAB PO SCH (08:22)
[2017-11-22] MEDS: AZITHROMYCIN 250 MG TAB PO SCH (08:22)
[2017-11-22] MEDS: predniSONE 10 MG TAB PO SCH ×2 (08:23→20:19)
[2017-11-22] MEDS: BUDESONIDE-FORMOTEROL 160/4.5 MCG INHALER INH SCH ×2 (08:23→20:19)
[2017-11-22] MEDS: guaiFENesin E.R. 600 MG TAB PO SCH ×2 (08:23→20:19)
[2017-11-22] MEDS ORDERED: LEVOFLOXACIN 750 MG TAB PO SCH (09:00)
[2017-11-22] MEDS: REMOVE OLD PATCH T-DERMAL SCH (09:00)
[2017-11-22] MEDS: NICOTINE 21 MG/24 HR PATCH T-DERMAL SCH (09:00)
--- NOTE | 2017-11-22 11:35 | HHI.PYPN ---
Subjective Chief Complaint: depression with increased auditory hallucinations Remarks Pt seen and discussed with staff. He has been compliant with medications. AH are reportedly diminishing. No aggression or agitation. Mental Status Examination Appearance: Appropriate (demonstrates fair hygiene and grooming) Consciousness: Alert Orientation: x4 Motor Activity: Normal gait Speech: Unremarkable Language: Adequate Fund of Knowledge: Adequate Attention and Concentration: Adequate Memory: Unremarkable Mood: Sad Affect: Appropriate Thought Process & Associations: Intact Thought Content: Appropriate, Hallucinations (intrusive demanding intimidating auditory hallucinations) Hallucination Type: Auditory Delusion Type: None Suicidal Ideation: No Suicidal Plan: No Suicidal Intention: No Homicidal Ideation: No Homicidal Plan: No Homicidal Intention: No Insight: Fair Judgment: Impulsive Results Labs Date/Time Source Procedure Growth Status 11/21/17 13:58 Sputum Expectorated Sputum Gram Stain - Final Resulted 11/21/17 13:58 Sputum Expectorated Sputum Sputum Culture Pending Resulted Vitals/IOs Vital Signs Date Time Temp Pulse Resp B/P (MAP) Pulse Ox O2 Delivery O2 Flow Rate FiO2 11/22/17 06:00 97.5 87 17 108/65 (79) 97 11/20/17 15:44 Room Air Assessment & Plan Problem List: (1) Depression, major, recurrent, severe with psychosis ICD Codes: F33.3 - Major depressive disorder, recurrent, severe with psychotic symptoms Assessment & Plan Continue current tx plan Justification for Cont. Inpt. impairments in reality testing Request HC Surrog/Guard Advoc?: No Amelia Russo MD Nov 22, 2017 11:35
--- NOTE | 2017-11-22 15:05 | HHI.PR ---
Subjective Remarks Follow-up visit pneumonia, COPD exacerbation. Patient seen and examined today sitting in bed. Reports he feels a lot better. Denies any shortness of breath or dyspnea. Compliant with medication. States that he is going to try to quit smoking when he gets out of the hospital. Objective Vitals Vital Signs Date Time Temp Pulse Resp B/P (MAP) Pulse Ox O2 Delivery O2 Flow Rate FiO2 11/22/17 06:00 97.5 87 17 108/65 (79) 97 11/21/17 18:44 98.3 81 18 133/76 (95) 95 I/O 11/21/17 11/21/17 11/21/17 11/22/17 11/22/17 11/22/17 07:00 15:00 23:00 07:00 15:00 23:00 Intake Total 360 ml 550 ml 480 ml Balance 360 ml 550 ml 480 ml Intake Oral 360 ml 550 ml 480 ml # Voids 2 2 4 Result Diagram: 11/19/17192911/21/17 0849 Imaging Last Impressions Head CT 11/19/171915 Signed Impressions: Service Date/Time: Sunday, November 19, 2017 19:29 - CONCLUSION: 1. Negative noncontrast CT of the brain. Milton Britt MD Chest X-Ray 11/19/171915 Signed Impressions: Service Date/Time: Sunday, November 19, 2017 19:36 - CONCLUSION: Equivocal finding suggesting the possibility of a right pneumothorax. Recommend repeat film, fully erect and in expiration, for further evaluation. Milton Britt MD Objective Remarks GENERAL: This is a well-nourished, well-developed patient, in no apparent distress. SKIN: Warm and dry HEENT: Normocephalic. Pupils equal round and reactive. Nose without bleeding. Airway patent. NECK: Trachea midline. CARDIOVASCULAR: Regular rate and rhythm without murmurs, gallops, or rubs. RESPIRATORY: Diminished bases. No wheezes, rales, or rhonchi. GASTROINTESTINAL: Abdomen soft, non-tender, nondistended. Bowel Sounds normoactive x4. MUSCULOSKELETAL: Extremities without clubbing, cyanosis, or edema. NEUROLOGICAL: Awake and alert. Oriented to place, person. No focal neuro deficit. Moves all extremities. Normal speech. A/P Problem List: (1) Depression, major, recurrent, severe with psychosis ICD Code: F33.3 - Major depressive disorder, recurrent, severe with psychotic symptoms (2) Bipolar disorder ICD Code: F31.9 - Bipolar disorder, unspecified Status: Acute (3) COPD with acute exacerbation ICD Code: J44.1 - Chronic obstructive pulmonary disease with (acute) exacerbation Status: Acute (4) Community acquired pneumonia ICD Code: J18.9 - Pneumonia, unspecified organism Status: Acute Assessment and Plan 62 year old male with past medical history significant for bipolar disorder, COPD and ongoing tobaccoism who presented voluntarily to [facility] ED requesting psychiatric evaluation due to ongoing homicidal thoughts, auditory and visual hallucinations and increasing paranoia. Patient has been admitted to inpatient psychiatry unit and hospitalist services have been consulted for medical management. Paranoia Homicidal thoughts Auditory and visual hallucinations Bipolar disorder -Management per psychiatric team COPD, in acute exacerbation Recently treated for PNA 3-4 mos ago Concern for underlying pneumonia Ongoing tobaccoism -Discussed smoking cessation -CXR unremarkable, images reviewed by me -Scheduled DuoNeb's -Azithromycin po -Prednisone 20mg BID x 4 days -Mucinex BID -Symbicort 2 puffs twice a day' -Improved. Counseled with smoking Nicotine patch. CKD -Creatinine appears to be at baseline -Avoid nephrotoxic agent -Monitor renal indices as indicated Bilateral feet numbness -B12 level 504 -HA1c 6.1 -Discuss extensively with patient. No concentrated sweets. Monitor diet. -Denies complaints Vitamin D deficiency -vitamin D supplementation daily -Patiently to follow-up with PCP in 2-3 months to repeat vitamin D level DVT prophylaxis -Patient is ambulatory Patient appears to be significantly improved. Continue with current regimen. Will sign off. Reconsult as needed. Problem Qualifiers (1) Bipolar disorder: Qualified Codes: F31.62 - Bipolar disorder, current episode mixed, moderate Lester Robb Nov 22, 2017 15:05
[2017-11-22 18:05] VITALS: BP 150/91; PULSE 73; RESP 18; TEMP 98.5; O2SAT 98
[2017-11-22] MEDS: OLANZapine 10 MG TAB PO SCH (20:19)
--- NOTE | 2017-11-22 23:24 | EKG ---
Date Performed: 11/21/2017 Time Performed: 10:17:02 PTAGE: 62 years EKG: Sinus rhythm WITH OCCASIONAL SUPRAVENTRICULAR PREMATURE COMPLEXES INCOMPLETE RIGHT BUNDLE BRANCH BLOCK BORDERLINE ECG PREVIOUS TRACING : 11/19/2017 20.09 Since the prior tracing, there has been no significant mariano DOCTOR: Dashawn Gutierrez Interpretating Date/Time 11/22/2017 23:23:01
[2017-11-23 06:01] VITALS: BP 140/82; PULSE 82; RESP 16; TEMP 97.8; O2SAT 92
[2017-11-23] MEDS: BUDESONIDE-FORMOTEROL 160/4.5 MCG INHALER INH SCH ×2 (09:00→20:10)
[2017-11-23] MEDS: REMOVE OLD PATCH T-DERMAL SCH (09:00)
[2017-11-23] MEDS: NICOTINE 21 MG/24 HR PATCH T-DERMAL SCH (09:00)
[2017-11-23] MEDS: CHOLECALCIFEROL (VIT D3) 1000 UNIT TAB PO SCH (09:24)
[2017-11-23] MEDS: guaiFENesin E.R. 600 MG TAB PO SCH ×2 (09:24→20:10)
[2017-11-23] MEDS: AZITHROMYCIN 250 MG TAB PO SCH (09:25)
[2017-11-23] MEDS: predniSONE 10 MG TAB PO SCH ×2 (09:25→20:10)
[2017-11-23] MEDS: RESP: ALBUTEROL 2.5 MG/IPRATROPIUM 0.5 MG NEB (SCH) NEB ×3 (09:25→22:32)
[2017-11-23] MEDS: SERTRALINE HCL 50 MG TAB PO SCH (09:25)
--- NOTE | 2017-11-23 16:32 | HHI.PYPN ---
Subjective Chief Complaint: depression with increased auditory hallucinations Remarks Pt seen and discussed with staff. He has been pleasant and cooperative with care today. No medication side effects. He denies AH today. Mental Status Examination Appearance: Appropriate (demonstrates fair hygiene and grooming) Consciousness: Alert Orientation: x4 Motor Activity: Normal gait Speech: Unremarkable Language: Adequate Fund of Knowledge: Adequate Attention and Concentration: Adequate Memory: Unremarkable Mood: Sad Affect: Appropriate Thought Process & Associations: Intact Thought Content: Appropriate Hallucination Type: None Delusion Type: None Suicidal Ideation: No Suicidal Plan: No Suicidal Intention: No Homicidal Ideation: No Homicidal Plan: No Homicidal Intention: No Insight: Fair Judgment: Impulsive Results Labs Date/Time Source Procedure Growth Status 11/21/17 13:58 Sputum Expectorated Sputum Gram Stain - Final Complete 11/21/17 13:58 Sputum Expectorated Sputum Sputum Culture - Final HEAVY GROWTH NORMAL RESPIRATORY RYAN Complete Vitals/IOs Vital Signs Date Time Temp Pulse Resp B/P (MAP) Pulse Ox O2 Delivery O2 Flow Rate FiO2 11/23/17 06:01 97.8 82 16 140/82 (101) 92 11/20/17 15:44 Room Air Intake and Output 11/23/17 11/23/17 11/24/17 08:00 16:00 00:00 Intake Total 0 ml 360 ml Balance 0 ml 360 ml Assessment & Plan Problem List: (1) Depression, major, recurrent, severe with psychosis ICD Codes: F33.3 - Major depressive disorder, recurrent, severe with psychotic symptoms Assessment & Plan Continue current tx plan Estimated LOS: days Justification for Cont. Inpt. risk of decompensation Request HC Surrog/Guard Advoc?: Amelia Bernal MD Nov 23, 2017 16:31
[2017-11-23 18:11] VITALS: BP 139/76; PULSE 90; RESP 18; TEMP 98.2; O2SAT 93
[2017-11-23] MEDS: OLANZapine 10 MG TAB PO SCH (20:10)
[2017-11-24 05:43] VITALS: BP 119/62; PULSE 71; RESP 16; TEMP 97.6; O2SAT 92
[2017-11-24] MEDS: RESP: ALBUTEROL 2.5 MG/IPRATROPIUM 0.5 MG NEB (SCH) NEB ×2 (08:00→12:00)
[2017-11-24] MEDS: REMOVE OLD PATCH T-DERMAL SCH (09:00)
[2017-11-24] MEDS: NICOTINE 21 MG/24 HR PATCH T-DERMAL SCH (09:00)
[2017-11-24] MEDS: BUDESONIDE-FORMOTEROL 160/4.5 MCG INHALER INH SCH (09:00)
[2017-11-24] MEDS: CHOLECALCIFEROL (VIT D3) 1000 UNIT TAB PO SCH (09:09)
[2017-11-24] MEDS: SERTRALINE HCL 50 MG TAB PO SCH (09:09)
[2017-11-24] MEDS: AZITHROMYCIN 250 MG TAB PO SCH (09:09)
[2017-11-24] MEDS: guaiFENesin E.R. 600 MG TAB PO SCH (09:09)
[2017-11-24] MEDS: predniSONE 10 MG TAB PO SCH (09:09)
--- NOTE | 2017-11-24 10:27 | PD.TTN ---
Patient Problems 1. Discharge planning 2. Medication compliance 3. Knowledge deficit 4. Lack of coping skills Progress Toward Goals Provider Present: Dr. Efren Cross Provider Input: 11/24/17 med adjustment, still meets criteria, somewhat psychotic has been off his medications Nurse(s) Input: 11/24/17 Ubaldo: cooperative and med compliant, was transferred to 2600 but then came back Psychiatric Counselors Present: Polly Mills LCSW Psych Therapist Input: 11/24/17 patient has some insight, at times seclusive and appears social and at times anti social , when stable he wants to return to his brothers home Group Spec/RT/OT/PALACIOS Present: SUZANNE Vance Group Spec/RT/OT/PALACIOS Input: 11/24/17 does not attend groups Polly Mills LCSW Nov 24, 2017 10:27
[2017-11-24] MEDS ORDERED: AZIT250T3 PO (13:38)
[2017-11-24] MEDS ORDERED: OLAN20TA PO (13:38)
[2017-11-24] MEDS ORDERED: VENTAER INH (13:38)
[2017-11-24] MEDS ORDERED: PRED10 PO (13:38)
[2017-11-24] MEDS ORDERED: ZOLO50TA PO (13:38)
[2017-11-24] MEDS ORDERED: guaiFENesin ER PO (13:38)
[2017-11-24] MEDS ORDERED: Budeson-Formot 160-4.5 Mcg Inh INH (13:38)
[2017-11-24] MEDS ORDERED: Albuterol-Ipratropium Neb NEB (13:38)
[2017-11-24] MEDS ORDERED: CHOL1000 PO (13:38)
--- NOTE | 2017-11-24 13:43 | HHI.DS ---
Psychiatry Discharge Summary Inpatient Psychiatric care?: Yes Advance Directive: No Reason Not Provided: declined Mental Health AdvanceDirective: No Health Care Proxy: No Admission Admission Date Nov 20, 2017 at 15:32 Admission Diagnosis: (1) Depression, major, recurrent, severe with psychosis ICD Code: F33.3 - Major depressive disorder, recurrent, severe with psychotic symptoms Brief History Patient is a 59 through white [place] [facility] voluntary complaining of increased depression with intense increasing auditory hallucinations of threatening nature, patient compliance medication. Patient seen screened in the ED urine toxicology negative for alcohol level negative. Of interest [facility] 03/21/17 through . With history of depression auditory hallucinations and vague suicidality. He was discharged on Zyprexa 20 mg at at bedtime. It appears after that patient went to [facility] than there only a few months said he was upset by the restrictive environment of that facility. He then wound up with a friend briefly and then recently has been staying with his brother and . Says that is a fairly good situation for him. He was followed up by nurse practitioner in the community. Though since leaving guarded manner he has been showing mixed compliance with his medication. I have it increased auditory hallucinations of threatening intimidating disturbing nature. Though he denies specific suicidal thoughts. He denies any alcohol or drugs related to this. He acknowledges increased initial and mid insomnia, a.m. anergy, decreased energy and concentration, decreased appetite with a couple of pound weight loss. He complains of vague numbness and tingling in all 4 extremities. (We will have hospitalist consult with us). Patient denies any physical or sexual abuse as a child. They missed the baby some mental health issues in his family of origin. 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 At this time patient does meet criteria for inpatient psychiatric hospitalization on a voluntary basis. I'll restart him on his Zyprexa 20 mg at bedtime will also add Zoloft 50 mg the morning, and Atarax on a when necessary basis. We will have the hospitalist consult with us. Hopeless. Fairly short stay in returned to his family home with follow-up services of the community Tobacco Use In Past 30 Days: 5 or More Cigarettes/Day Alcohol Use: Never Hospital Course Patient's hospital course was uneventful, issue compliance with his medication from day 1. Psychosis slowly resolve. He had a good weekend. Is been compliant with his medications. He denies suicidality homicidality voices or visions. If this time I feel patient reached maximum benefit of this hospitalization. This would be discharged today to return home with his brother. Follow-up Dr. Carbajal Results Blood Pressure 119 / 62 Vital Signs Date Time Temp Pulse Resp B/P (MAP) Pulse Ox O2 Delivery O2 Flow Rate FiO2 11/24/17 05:43 97.6 71 16 119/62 (81) 92 11/20/17 15:44 Room Air Laboratory Results Test 11/21/17 08:49 Cholesterol Level 182 MG/DL (120-200) HDL Cholesterol 45.7 MG/DL (40.0-60.0) Hemoglobin A1c 6.1 % (4.3-6.0) LDL Cholesterol 112 MG/DL (0-99) Triglycerides Level 120 MG/DL (42-150) Summary of Procedures None done Imaging Last Impressions Head CT 11/19/171915 Signed Impressions: Service Date/Time: Sunday, November 19, 2017 19:29 - CONCLUSION: 1. Negative noncontrast CT of the brain. Milton Britt MD Chest X-Ray 11/19/171915 Signed Impressions: Service Date/Time: Sunday, November 19, 2017 19:36 - CONCLUSION: Equivocal finding suggesting the possibility of a right pneumothorax. Recommend repeat film, fully erect and in expiration, for further evaluation. Milton Britt MD Pending results at discharge: No Medications # of Antipsychotic meds at D/C: 1 Approp Antipsych med options 1 - Minimum of three failed multiple trials of monotherapy. 2 - Documented plan to taper to monotherapy due to previous use of multiple meds OR cross-taper in progress at D/C. 3 - Documentation of augmentation of Clozapine. 4 - Justification other than those listed in allowable values 1-3, document here : Discharge Discharge Date: Nov 24, 2017 Discharge Diagnosis: (1) Depression, major, recurrent, severe with psychosis Diagnosis: Principal ICD Code: F33.3 - Major depressive disorder, recurrent, severe with psychotic symptoms Pt Condition on Discharge: Stable Discharge Disposition: Discharge Home Discharge Instructions Diet Instructions: As Tolerated, No Restrictions Activities you can perform: Regular-No Restrictions Scheduled Appointment: Dr Blood Discharge Time > 30 minutes Mental Status Examination Appearance: Appropriate (demonstrates fair hygiene and grooming) Consciousness: Alert Orientation: x4 Motor Activity: Normal gait Speech: Unremarkable Language: Adequate Fund of Knowledge: Adequate Attention and Concentration: Adequate Memory: Unremarkable Mood: Sad Affect: Appropriate Thought Process & Associations: Intact Thought Content: Appropriate Hallucination Type: None Delusion Type: None Suicidal Ideation: No Suicidal Plan: No Suicidal Intention: No Homicidal Ideation: No Homicidal Plan: No Homicidal Intention: No Insight: Fair Judgment: Impulsive Discharge/Advance Care Plan Health Problems: (1) Depression, major, recurrent, severe with psychosis Goals to promote your health * To prevent worsening of your condition and complications * To maintain your health at the optimal level Directions to meet your goals Take your medications as prescribed Follow your dietary instruction Follow activity as directed Keep your appointments as scheduled Take your immunizations and boosters as scheduled If your symptoms worsen call your PCP, if no PCP go to Urgent Care Center or Emergency Room For 07/04 questions related to your inpatient stay or results of tests pending at discharge, please contact Dr. Baldev Cross at Smoking is Dangerous to Your Health. Avoid second hand smoking Baldev Cross MD Nov 24, 2017 13:43
== END 2017-11-24 14:30 | disposition home or self-care (01) | DRG 885 ==
LOC: NEPD 18:26 → NEDA 11-20 15:32 → H250 11-20 16:55 → H260 11-21 12:20 → H250 11-22 12:59
PROVIDERS: ADMIT Psychiatry & Neurology Psychiatry; ATTEND Psychiatry & Neurology Psychiatry
DX: F33.3 Major depressive disorder, recurrent, severe with psychotic symptoms (principal); J18.9 Pneumonia, unspecified organism; R45.850 Homicidal ideations; J44.0 Chronic obstructive pulmonary disease with (acute) lower respiratory infection; J44.1 Chronic obstructive pulmonary disease with (acute) exacerbation; E16.2 Hypoglycemia, unspecified; G47.00 Insomnia, unspecified; N18.9 Chronic kidney disease, unspecified; R20.0 Anesthesia of skin; E55.9 Vitamin D deficiency, unspecified; H91.90 Unspecified hearing loss, unspecified ear; M19.90 Unspecified osteoarthritis, unspecified site; F17.200 Nicotine dependence, unspecified, uncomplicated; Z81.8 Family history of other mental and behavioral disorders
CPT/HCPCS: 70450; 71045; 80048; 80053; 80061; 80307; 82306; 82550; 82552; 82607; 83036; 83735; 84443; 84484; 85025; 87070; 87205; 93005; 94640; 94664; 96361; 96374; J7030; J7512

== ENCOUNTER 2017-12-25 14:58 | Emergency (ER) | payer OTHER, MEDICAID ==
[~2017-12-25] VITALS: Ht 185.4 cm; Wt 75.0 kg
[~2017-12-25 14:58] MED LIST changes: +AZIT250T3 PO; +Albuterol-Ipratropium Neb NEB; +Budeson-Formot 160-4.5 Mcg Inh INH; +CHOL1000 PO; -PRED-503 PO; +PRED10 PO; -TRAZ100T10 PO; +ZOLO50TA PO; +guaiFENesin ER PO
[2017-12-25 15:09] VITALS: BP 130/67; PULSE 96; RESP 16; TEMP 97.8; O2SAT 94
[2017-12-25 20:39] VITALS: BP 150/77; PULSE 91; RESP 20; O2SAT 88
--- NOTE | 2017-12-25 21:02 | PD ---
HPI Chief Complaint: Medical Clearance Time Seen by Provider: 20:37 Travel History International Travel<30 days: No Contact w/Intl Traveler<30days: No Traveled to known affect area: No History of Present Illness HPI Patient is a 62-year-old male who is currently homeless he is coming in saying that he is feeling emotionally and physically exhausted he says. He has been hospitalized for schizoaffective disease in the past and he is on Zyprexa and another medication for which he cannot remember. Denies associated sx no CP no N./V /D o SOB , PFSH Past Medical History Blood Disorders: No Bipolar Disorder: Yes Depression: Yes Cancer: No Cardiovascular Problems: Yes Chest Pain: Yes COPD: Yes Diminished Hearing: Yes ([place]) Endocrine: No Gastrointestinal Disorders: No Genitourinary: No Immune Disorder: No Musculoskeletal: Yes (arthritis ) Neurologic: Yes (vertigo) Psychiatric: Yes (patient has long history of mental health issues) Reproductive: No Respiratory: Yes Schizophrenia: Yes (effective disorder) Tetanus Vaccination: Unknown Influenza Vaccination: No Past Surgical History Surgical History: No Previous Surgery Other Surgery: No Social History Alcohol Use: No Tobacco Use: Yes (/ PPD) Substance Use: No Allergies-Medications (Allergen,Severity, Reaction): Coded Allergies: No Known Allergies (Unverified Adverse Reaction, Unknown, 12/25/17) Reported Meds & Prescriptions Reported Meds & Active Scripts Active Zoloft (Sertraline HCl) 50 Mg Tab 50 Mg PO DAILY Prednisone 10 Mg Tab 20 Mg PO BID [guaiFENesin ER] 600 MG Tabcr 1,200 Mg PO BID Gnp Vitamin D3 Extra Stre (Cholecalciferol) 1,000 Unit Tab 1,000 Units PO DAILY [Budeson-Formot 160-4.5 Mcg Inh] 60 PUFF Aero 2 Puff INH Q12HR [Albuterol-Ipratropium Neb] 1 AMPULE Nebu 1 Ampule NEB Q4HR WHILE AWAKE NEB Ventolin Hfa 18 GM Inh (Albuterol Sulfate) 90 Mcg/Act Aer 2 Puff INH Q4H PRN Olanzapine 20 Mg Tab 20 Mg PO HS Reported Zyprexa (Olanzapine) 2.5 Mg Tab 2.5 Mg PO BID Review of Systems Except as stated in HPI: all other systems reviewed are Neg Musculoskeletal: Positive: Weakness Psychiatric: Positive: Anxiety, Depression Physical Exam Narrative GENERAL: Patient is very thin and has facial wasting SKIN: Warm and dry. He has a few erosive areas on the diaz that are covered in a Band-Aid with bacitracin applied HEAD: Atraumatic. Normocephalic. EYES: Pupils equal and round. No scleral icterus. No injection or drainage. ENT: No nasal bleeding or discharge. Mucous membranes pink and moist. NECK: Trachea midline. No JVD. CARDIOVASCULAR: Regular rate and rhythm. RESPIRATORY: No accessory muscle use. Clear to auscultation. Breath sounds equal bilaterally. GASTROINTESTINAL: Abdomen soft, non-tender, nondistended. Hepatic and splenic margins not palpable. MUSCULOSKELETAL: Extremities without clubbing, cyanosis, or edema. No obvious deformities. NEUROLOGICAL: Awake and alert. No obvious cranial nerve deficits. Motor grossly within normal limits. Five out of 5 muscle strength in the arms and legs. Normal speech. PSYCHIATRIC: Appropriate mood and affect; insight and judgment normal. Data Data Last Documented VS Vital Signs Date Time Temp Pulse Resp B/P (MAP) Pulse Ox O2 Delivery O2 Flow Rate FiO2 12/26/17 09:10 12/26/17 07:03 97.8 96 17 99 Room Air Orders Orders Sodium Chlor 0.9% 1000 Ml Inj (Ns 1000 M (12/25/17 21:15) Famotidine Inj (Pepcid Inj) (12/25/17 21:15) Complete Blood Count With Diff (12/25/17 21:10) Comprehensive Metabolic Panel (12/25/17 21:10) Creatine Kinase (Cpk) (12/25/17 21:10) Lipase (12/25/17 21:10) Ua Includes Microscopic (12/25/17 21:10) Chest, Pa & Lat (12/25/17 21:10) Famotidine Inj (Pepcid Inj) (12/25/17 22:00) Psych Screen (12/26/17 02:35) Labs Laboratory Tests Test 12/25/17 21:15 12/26/17 01:00 White Blood Count 6.4 TH/MM3 Red Blood Count 4.70 MIL/MM3 Hemoglobin 14.7 GM/DL Hematocrit 43.6 % Mean Corpuscular Volume 92.8 FL Mean Corpuscular Hemoglobin 31.3 PG Mean Corpuscular Hemoglobin Concent 33.7 % Red Cell Distribution Width 14.4 % Platelet Count 221 TH/MM3 Mean Platelet Volume 7.7 FL Neutrophils (%) (Auto) 60.0 % Lymphocytes (%) (Auto) 29.3 % Monocytes (%) (Auto) 9.1 % Eosinophils (%) (Auto) 1.1 % Basophils (%) (Auto) 0.5 % Neutrophils # (Auto) 3.8 TH/MM3 Lymphocytes # (Auto) 1.9 TH/MM3 Monocytes # (Auto) 0.6 TH/MM3 Eosinophils # (Auto) 0.1 TH/MM3 Basophils # (Auto) 0.0 TH/MM3 CBC Comment DIFF FINAL Differential Comment Blood Urea Nitrogen 11 MG/DL Creatinine 1.32 MG/DL Random Glucose 119 MG/DL Total Protein 7.2 GM/DL Albumin 3.5 GM/DL Calcium Level 8.8 MG/DL Alkaline Phosphatase 117 U/L Aspartate Amino Transf (AST/SGOT) 35 U/L Alanine Aminotransferase (ALT/SGPT) 34 U/L Total Bilirubin 0.3 MG/DL Sodium Level 146 MEQ/L Potassium Level 4.1 MEQ/L Chloride Level 111 MEQ/L Carbon Dioxide Level 30.8 MEQ/L Anion Gap 4 MEQ/L Estimat Glomerular Filtration Rate 55 ML/MIN Total Creatine Kinase 256 U/L Lipase 128 U/L Urine Color LIGHT-YELLOW Urine Turbidity CLEAR Urine pH 6.5 Urine Specific [place] 1.004 Urine Protein NEG mg/dL Urine Glucose (UA) NEG mg/dL Urine Ketones NEG mg/dL Urine Occult Blood NEG Urine Nitrite NEG Urine Bilirubin NEG Urine Urobilinogen LESS THAN 2.0 MG/DL Urine Leukocyte Esterase NEG MDM Medical Decision Making Medical Screen Exam Complete: Yes Emergency Medical Condition: Yes Differential Diagnosis depression anxiety exhaustion due to homelessness , lack of sleep exacerbation of his mental disorder due to social stress other Narrative Course medically cleared for psych screen , awaiting consult signed out to next attending Rubin Vargas MD Dec 25, 2017 21:02
[2017-12-25] MEDS ORDERED: FAMOTIDINE 20 MG/2 ML VIAL IV PUSH SCH (21:15)
[2017-12-25] MEDS ORDERED: SODIUM CHLOR 0.9% 1000 ML INJ 1,000 ML IV ONE (21:15)
--- NOTE | 2017-12-25 21:36 | RADRPT ---
EXAM DATE/TIME: 12/25/2017 21:25 [facility] COMPARISON: CHEST SINGLE AP, November 19, 2017, 21:25. CHEST PA & LAT, July 17, 2017, 22:03. INDICATIONS : Lower right side chest pain and cough. MEDICAL HISTORY : Emphysema.Cardiovascular disease. Chronic obstructive pulmonary disease. SURGICAL HISTORY : None. ENCOUNTER: Initial ACUITY: 1 month PAIN SCORE: 2/10 LOCATION: Bilateral chest FINDINGS: PA and lateral views of the chest demonstrate the lungs to be symmetrically hyperinflated without christiano dence of mass, infiltrate or effusion. The cardiomediastinal contours are unremarkable. Osseous str uctures are intact. CONCLUSION: No acute disease. There is no evidence of pneumonia. Levy Duval MD on December 25, 2017 at 21:31 Board Certified Radiologist. This report was verified electronically.
[2017-12-25 21:51] LABS: AUTOMATED NEUTROPHIL # 3.8 TH/MM3 (1.8-7.7); BASOPHIL % 0.5 % (0.0-2.0); EOSINOPHIL # 0.1 TH/MM3 (0-0.4); EOSINOPHIL % 1.1 % (0.0-4.0); HEMATOCRIT 43.6 % (39.0-51.0); HEMOGLOBIN 14.7 GM/DL (13.0-17.0); LYMPH % 29.3 % (9.0-44.0); LYMPHOCYTE # 1.9 TH/MM3 (1.0-4.8); MEAN CELL VOLUME 92.8 FL (80.0-100.0); MEAN CORPUSCULAR HEMOGLOBIN 31.3 PG (27.0-34.0); MEAN CORPUSCULAR HGB CONC 33.7 % (32.0-36.0); MEAN PLATELET VOLUME 7.7 FL (7.0-11.0); MONO % 9.1 % (0.0-8.0); MONOCYTE # 0.6 TH/MM3 (0-0.9); PLATELET COUNT 221 TH/MM3 (150-450); RED CELL DISTRIBUTION WIDTH 14.4 % (11.6-17.2); WHITE BLOOD COUNT 6.4 TH/MM3 (4.0-11.0)
[2017-12-25] MEDS ORDERED: FAMOTIDINE 20 MG/2 ML VIAL IV ONE (22:00)
[2017-12-25 22:12] LABS: ALBUMIN 3.5 GM/DL (3.4-5.0); ALT (GPT) 34 U/L (12-78); AST (GOT) 35 U/L (15-37); BICARBONATE 30.8 MEQ/L (21.0-32.0); BLOOD UREA NITROGEN 11 MG/DL (7-18); CALCIUM 8.8 MG/DL (8.5-10.1); CHLORIDE 111 MEQ/L (98-107); CREATININE 1.32 MG/DL (0.60-1.30); GLOMERULAR FILTRATION RATE 55 ML/MIN (>89); GLUCOSE,RANDOM 119 MG/DL (74-106); SODIUM (NA) 146 MEQ/L (136-145)
[2017-12-25 22:15] LABS: ALKALINE PHOSPHATASE 117 U/L (45-117); TOTAL BILIRUBIN ADULT 0.3 MG/DL (0.2-1.0); TOTAL PROTEIN 7.2 GM/DL (6.4-8.2)
[2017-12-26 01:00] VITALS: BP 114/72; PULSE 78; RESP 16; O2SAT 98
[2017-12-26 01:41] LABS: BILIRUBIN, URINE NEG (NEG); BLOOD, URINE NEG (NEG); GLUCOSE,URINE NEG (NEG); KETONE, URINE NEG (NEG); NITRITE,URINE NEG (NEG); PH, URINE 6.5 (5.0-8.5); URINE COLOR LIGHT-YELLOW (YELLW/STRAW); URINE LEUKOCYTE ESTERASE NEG (NEG)
[2017-12-26 03:38] VITALS: BP 143/80; PULSE 90; RESP 16; O2SAT 94
[2017-12-26] MEDS ORDERED: ZYPR2.5T2 PO (06:37)
[2017-12-26 07:03] VITALS: BP 141/75; PULSE 96; RESP 17; TEMP 97.8; O2SAT 99
--- NOTE | 2017-12-26 09:31 | PD ---
Physical Exam Date Seen by Provider: Dec 26, 2017 Time Seen by Provider: 09:20 Narrative Patient was initially seen by Dr. Vargas. The patient was medically cleared for psychiatric evaluation. Patient was voluntary and not suicidal. He presented stating that he was not feeling at his baseline psychiatrically. Data Data Last Documented VS Vital Signs Date Time Temp Pulse Resp B/P (MAP) Pulse Ox O2 Delivery O2 Flow Rate FiO2 12/26/17 09:10 12/26/17 07:03 97.8 96 17 99 Room Air Orders Orders Sodium Chlor 0.9% 1000 Ml Inj (Ns 1000 M (12/25/17 21:15) Famotidine Inj (Pepcid Inj) (12/25/17 21:15) Complete Blood Count With Diff (12/25/17 21:10) Comprehensive Metabolic Panel (12/25/17 21:10) Creatine Kinase (Cpk) (12/25/17 21:10) Lipase (12/25/17 21:10) Ua Includes Microscopic (12/25/17 21:10) Chest, Pa & Lat (12/25/17 21:10) Famotidine Inj (Pepcid Inj) (12/25/17 22:00) Psych Screen (12/26/17 02:35) Diet Regular Basic (12/26/17 Breakfast) Labs Laboratory Tests Test 12/25/17 21:15 12/26/17 01:00 White Blood Count 6.4 TH/MM3 Red Blood Count 4.70 MIL/MM3 Hemoglobin 14.7 GM/DL Hematocrit 43.6 % Mean Corpuscular Volume 92.8 FL Mean Corpuscular Hemoglobin 31.3 PG Mean Corpuscular Hemoglobin Concent 33.7 % Red Cell Distribution Width 14.4 % Platelet Count 221 TH/MM3 Mean Platelet Volume 7.7 FL Neutrophils (%) (Auto) 60.0 % Lymphocytes (%) (Auto) 29.3 % Monocytes (%) (Auto) 9.1 % Eosinophils (%) (Auto) 1.1 % Basophils (%) (Auto) 0.5 % Neutrophils # (Auto) 3.8 TH/MM3 Lymphocytes # (Auto) 1.9 TH/MM3 Monocytes # (Auto) 0.6 TH/MM3 Eosinophils # (Auto) 0.1 TH/MM3 Basophils # (Auto) 0.0 TH/MM3 CBC Comment DIFF FINAL Differential Comment Blood Urea Nitrogen 11 MG/DL Creatinine 1.32 MG/DL Random Glucose 119 MG/DL Total Protein 7.2 GM/DL Albumin 3.5 GM/DL Calcium Level 8.8 MG/DL Alkaline Phosphatase 117 U/L Aspartate Amino Transf (AST/SGOT) 35 U/L Alanine Aminotransferase (ALT/SGPT) 34 U/L Total Bilirubin 0.3 MG/DL Sodium Level 146 MEQ/L Potassium Level 4.1 MEQ/L Chloride Level 111 MEQ/L Carbon Dioxide Level 30.8 MEQ/L Anion Gap 4 MEQ/L Estimat Glomerular Filtration Rate 55 ML/MIN Total Creatine Kinase 256 U/L Lipase 128 U/L Urine Color LIGHT-YELLOW Urine Turbidity CLEAR Urine pH 6.5 Urine Specific [place] 1.004 Urine Protein NEG mg/dL Urine Glucose (UA) NEG mg/dL Urine Ketones NEG mg/dL Urine Occult Blood NEG Urine Nitrite NEG Urine Bilirubin NEG Urine Urobilinogen LESS THAN 2.0 MG/DL Urine Leukocyte Esterase NEG MDM Medical Record Reviewed: Yes Supervised Visit with ELIZABETH: No Narrative Course 62-year-old male with a history of schizoaffective disorder, patient was initially wanted to be seen by psychiatric screener. The patient was seen earlier by the previous physician. The patient was medically cleared. The patient has elected to sign out AGAINST MEDICAL ADVICE. I was informed by the nurse that he had left AGAINST MEDICAL ADVICE. The patient was voluntary and not suicidal. Diagnosis Primary Impression: Schizoaffective disorder Additional Impression: Left against medical advice Patient Instructions: General Instructions Departure Forms: Tests/Procedures Disposition: AGAINST MEDICAL ADVICE Condition: Stable Joe Smith MD Dec 26, 2017 09:31
== END 2017-12-26 09:15 | disposition left against medical advice (07) ==
LOC: NEPC 14:58
DX: F25.9 Schizoaffective disorder, unspecified (principal); F31.9 Bipolar disorder, unspecified; F17.200 Nicotine dependence, unspecified, uncomplicated
CPT/HCPCS: 71046; 80053; 81001; 82550; 83690; 85025; 96361; 96374; 99284; J7030

== ENCOUNTER 2018-08-25 17:43 | Inpatient (IN) ==
--- NOTE | 2018-08-25 18:38 | ED ---
HPI General Chief complaint: Respiratory Symptoms Stated complaint: SOB Complaint Time Seen by Provider: 08/25/18 18:35 History of Present Illness HPI narrative: 63-year-old male with a history of anxiety hypertension, glaucoma , emphysema, tobacco abuse, hx of repair of AAA is brought to the emergency department by EMS for evaluation of chest pain and shortness of breath. Per EMS report the patient took a cab and couldn't pay the fare so the cable operator called the police, once the police were on scene the patient started complaining of chest pain and shortness of breath and EMS were called. Per EMS report the patient's oxygen saturation was noted to be around 88% on RA. The patient states this story is accurate. He states that he became very anxious when the police were present which caused him to start having chest pain. He states he has had anxiety like this previously. He denies any fever, chills, cough or cold symptoms, swelling of the extremities. He denies any history of OK or heart disease or blood clots. No other complaints. Related Data Home Medications Medication Instructions Recorded Confirmed prednisone 1 mg PO DAILY 08/25/18 08/25/18 Allergies Allergy/AdvReac Type Severity Reaction Status Date / Time No Known Allergies Allergy Verified 08/25/18 18:30 Review of Systems ROS: all other systems reviewed are negative PMFSH Medical History Medical History AAA (abdominal aortic aneurysm) (Acute) Anxiety (Acute) Arthritis (Acute) Bipolar disorder (Acute) Depression (Acute) Emphysema of lung (Acute) Glaucoma (Acute) Hard of hearing (Acute) Social History Social History Substance History: No History of Abuse Second Hand Smoke Exposure: Yes Smoking Status: Current every day smoker Tobacco Type: Cigarettes How Often Do You Have a Drink Containing Alcohol: Never Recent Travel in [facility] within the Last 8 Weeks: No Recent Out of Country Travel within the Last 8 Weeks: No Exam Narrative Exam Narrative: GENERAL: Well-nourished and well-developed pleasant patient in no acute distress who is nontoxic appearing. SKIN: Warm and dry. HEAD: Normocephalic and atraumatic. EYES: No injection, drainage, or hyphema noted. PERRLA. EOMI. ENT: No nasal drainage noted. Oropharynx is clear. NECK: Supple and the trachea is midline. CARDIOVASCULAR: Regular rate and rhythm. RESPIRATORY: Wheeze noted to left upper lung. No accessory muscle use, rhonchi , or crackles. GASTROINTESTINAL: Abdomen is soft, non-tender, and nondistended. MUSCULOSKELETAL: No obvious deformities, swelling, cyanosis, or ecchymosis is present throughout the upper and lower extremities. Patient has full range of motion without any signs of neurovascular compromise. Distal pulses are 2+ throughout. NEUROLOGICAL: Awake, alert, and oriented. Normal speech and gait. Cranial nerves are grossly intact. Course Initial Documented Vital Signs Temperature 97.8 F 08/25/18 18:30 Pulse Rate 105 H 08/25/18 18:30 Respiratory Rate 20 08/25/18 18:30 Blood Pressure 144/95 H 08/25/18 18:30 Pulse Oximetry 93 L 08/25/18 18:30 Last Documented Vital Signs Temperature 97.8 F 08/25/18 18:40 Pulse Rate 88 08/25/18 20:30 Respiratory Rate 15 08/25/18 20:30 Blood Pressure 140/73 08/25/18 20:30 Pulse Oximetry 98 08/25/18 20:30 Medical Decision Making [facility] Narrative Medical decision making narrative: 63-year-old male is to the emergency department by EMS for evaluation of chest pain and shortness of breath with low oxygen saturation. Patient is afebrile. His initial oxygen saturation is 93% on room air here in the ED. He is slightly tachycardic. Otherwise vital signs within normal limits. IV access is obtained, labs of been drawn and sent. Patient is placed on cardiac telemetry and pulse oximetry monitoring. CBC is unremarkable. CMP shows renal insufficiency with creatinine 1.47, BUN 21, GFR 48. Slightly worse than his previous labs. Also noted his bicarb is elevated at 34.7 and anion gap is 3. Troponin is less than 0.02. Chest x-ray is negative. Abg shows hypoxia with pO2 54, bicarb 35, ph 7.33 CT pulmonary angiogram is negative for PE. Mild paraseptal emphysema without infiltrate or mass. Patient reassessed and still complaining of shortness of breath and he does still have mild wheezing noted. Solumedrol 125 mg ordered. Patient with hypoxia and COPD exacerbation. Will keep patient in observation, discussed with Dr. Engel [facility] who accepts. I discussed the case with my attending physician Dr. Guy who is aware of the patients history, physical examination findings, and treatment plan. Medical Screen Exam Complete: Yes Emergency Medical Condition: Yes Differential Diagnosis Differential Diagnosis: COPD exacerbation versus pleurisy versus anxiety versus PE unlikely versus ACS unlikely Lab Data Result diagrams: 08/25/18 18:40 08/25/18 18:40 Lab Results 08/25/18 08/25/18 08/25/18 Range/Units 18:40 18:40 19:38 WBC 7.5 (4.0-11.0) th/mm3 RBC 4.73 (4.50-5.90) mil/mm3 Hgb 14.5 (13.0-17.0) gm/dL Hct 43.4 (39.0-51.0) % MCV 91.8 (80.0-100.0) fL MCH 30.6 (27.0-34.0) pg MCHC 33.3 (32.0-36.0) % RDW 14.8 (11.6-17.2) % Plt Count 214 (150-450) th/mm3 MPV 7.7 (7.0-11.0) fL Neut % (Auto) 76.1 H (16.0-70.0) % Lymph % (Auto) 15.7 (9.0-44.0) % George % (Auto) 7.6 (0.0-8.0) % Eos % (Auto) 0.3 (0.0-4.0) % Baso % (Auto) 0.3 (0.0-2.0) % Neut # (Auto) 5.7 (1.8-7.7) th/mm3 Lymph # (Auto) 1.2 (1.0-4.8) th/mm3 George # (Auto) 0.6 (0.0-0.9) th/mm3 Eos # (Auto) 0.0 (0.0-0.4) th/mm3 Baso # (Auto) 0.0 (0.0-0.2) th/mm3 WBC Differential . Differential Comment Auto diff final D-Dimer Quant (PE/DVT) 1.50 H (0.00-0.50) mg/L FEU Puncture Site Patient Temperature O2 Saturation (90-100) % ABG pH (7.380-7.420) ABG pCO2 (38-42) mmHg ABG pO2 (61-120) mmHg ABG HCO3 (22-26) mmol/L ABG O2 Content (12.0-20.0) Vol % ABG Base Excess (-2-2) mmol/L ABG Methemoglobin (0-2) % Manuel Test Hemoglobin (12.0-16.0) G/DL Carboxyhemoglobin (0-4) % Liter Flow L/M Critical Value Sodium 140 (136-145) meq/L Potassium 4.2 (3.5-5.1) meq/L Chloride 102 (98-107) meq/L Carbon Dioxide 34.7 H (21.0-32.0) meq/L Anion Gap 3 L (5-15) meq/L BUN 21 H (7-18) mg/dL Creatinine 1.47 H (0.60-1.30) mg/dL Estimated GFR 48 L (>89) mL/min Random Glucose 83 (74-106) mg/dL Calcium 8.8 (8.5-10.1) mg/dL Total Bilirubin 0.3 (0.2-1.0) mg/dL AST 37 (15-37) U/L ALT 34 (12-78) U/L Alkaline Phosphatase 90 (45-117) U/L Troponin I Less than 0.02 L (0.02-0.05) ng/mL Total Protein 6.9 (6.4-8.2) g/dL Albumin 3.5 (3.4-5.0) g/dL 08/25/18 Range/Units 20:30 WBC (4.0-11.0) th/mm3 RBC (4.50-5.90) mil/mm3 Hgb (13.0-17.0) gm/dL Hct (39.0-51.0) % MCV (80.0-100.0) fL MCH (27.0-34.0) pg MCHC (32.0-36.0) % RDW (11.6-17.2) % Plt Count (150-450) th/mm3 MPV (7.0-11.0) fL Neut % (Auto) (16.0-70.0) % Lymph % (Auto) (9.0-44.0) % George % (Auto) (0.0-8.0) % Eos % (Auto) (0.0-4.0) % Baso % (Auto) (0.0-2.0) % Neut # (Auto) (1.8-7.7) th/mm3 Lymph # (Auto) (1.0-4.8) th/mm3 George # (Auto) (0.0-0.9) th/mm3 Eos # (Auto) (0.0-0.4) th/mm3 Baso # (Auto) (0.0-0.2) th/mm3 WBC Differential Differential Comment D-Dimer Quant (PE/DVT) (0.00-0.50) mg/L FEU Puncture Site Right radial Patient Temperature 98.6 O2 Saturation 78 L* (90-100) % ABG pH 7.33 L (7.380-7.420) ABG pCO2 68 H* (38-42) mmHg ABG pO2 54 L* (61-120) mmHg ABG HCO3 35 H (22-26) mmol/L ABG O2 Content 14.6 (12.0-20.0) Vol % ABG Base Excess 8.8 H (-2-2) mmol/L ABG Methemoglobin 0.8 (0-2) % Manuel Test Present Hemoglobin 13.4 (12.0-16.0) G/DL Carboxyhemoglobin 11.8 H* (0-4) % Liter Flow 21.00 L/M Critical Value Yes Sodium (136-145) meq/L Potassium (3.5-5.1) meq/L Chloride (98-107) meq/L Carbon Dioxide (21.0-32.0) meq/L Anion Gap (5-15) meq/L BUN (7-18) mg/dL Creatinine (0.60-1.30) mg/dL Estimated GFR (>89) mL/min Random Glucose (74-106) mg/dL Calcium (8.5-10.1) mg/dL Total Bilirubin (0.2-1.0) mg/dL AST (15-37) U/L ALT (12-78) U/L Alkaline Phosphatase (45-117) U/L Troponin I (0.02-0.05) ng/mL Total Protein (6.4-8.2) g/dL Albumin (3.4-5.0) g/dL Imaging Data Radiologist's impression: Chest X-Ray 08/25/18 18:36 CONCLUSION: No acute cardiopulmonary disease Chest CTA 08/25/18 20:20 CONCLUSION: 1. No evidence for pulmonary embolism. 2. Mild paraseptal emphysema without infiltrate or mass. Discharge Plan Discharge Disposition Patient Disposition: ED Admit(ED Internal Use Only) Discharge Details Diagnosis: COPD with hypoxia Physicians Team ED Provider: Caroline Guy ED Midlevel Provider: Bailey Wayne Primary Care Provider: Primary Care Denise Bradley Rxs /Orders / Referrals /Forms Prescriptions: No Action prednisone 1 mg Tablet 1 mg PO DAILY RF: 0 Status ED Status: With Doctor
[2018-08-25 19:08] LABS: Baso % (Auto) 0.3 % (0.0-2.0); Eos % (Auto) 0.3 % (0.0-4.0); Hematocrit 43.4 % (39.0-51.0); Hemoglobin 14.5 gm/dL (13.0-17.0); Lymph # (Auto) 1.2 th/mm3 (1.0-4.8); Lymph % (Auto) 15.7 % (9.0-44.0); Mean Corpuscular HGB Conc 33.3 % (32.0-36.0); Mean Corpuscular Hemoglobin 30.6 pg (27.0-34.0); Mean Corpuscular Volume 91.8 fL (80.0-100.0); Mean Platelet Volume 7.7 fL (7.0-11.0); Mono # (Auto) 0.6 th/mm3 (0.0-0.9); Mono % (Auto) 7.6 % (0.0-8.0); Neut # (Auto) 5.7 th/mm3 (1.8-7.7); Neut % (Auto) 76.1 % (16.0-70.0); Platelet Count 214 th/mm3 (150-450); Red Blood Count 4.73 mil/mm3 (4.50-5.90); Red Cell Distribution Width 14.8 % (11.6-17.2); White Blood Count 7.5 th/mm3 (4.0-11.0)
[2018-08-25 19:28] LABS: Albumin 3.5 g/dL (3.4-5.0); Anion Gap 3 meq/L (5-15); Aspartate Aminotransferase 37 U/L (15-37); Blood Urea Nitrogen 21 mg/dL (7-18); Calcium 8.8 mg/dL (8.5-10.1); Carbon Dioxide 34.7 meq/L (21.0-32.0); Chloride 102 meq/L (98-107); Glomerular Filtration Rate 48 mL/min (>89); Glucose,Random 83 mg/dL (74-106); Potassium 4.2 meq/L (3.5-5.1); Sodium 140 meq/L (136-145)
[2018-08-25 19:29] LABS: Alanine Aminotransferase 34 U/L (12-78)
--- NOTE | 2018-08-25 19:29 | XR ---
EXAM DATE: 08/25/2018 7:23 PM EST AGE/SEX: 63 years / Male INDICATIONS: Short of breath. CLINICAL DATA: This is the patient's initial encounter. Patient reports that signs and symptoms have been present for 1 day and indicates a pain score of 4/10. MEDICAL/SURGICAL HISTORY: . Emphysema.Cardiovascular disease. Chronic obstructive pulmonary dis ease. None. COMPARISON: [facility] [place], CHEST PA & LAT, 12/25/2017. . FINDINGS: A single AP view of the chest demonstrates the lungs to be symmetrically aerated without evidence of mass, infiltrate or effusion. The cardiomediastinal contours are unremarkable. Osseous structures a re intact. CONCLUSION: No acute cardiopulmonary disease Electronically signed by: Jay Avery MD 08/25/2018 7:27 PM EST
[2018-08-25 19:33] LABS: Alkaline Phosphatase 90 U/L (45-117); Total Protein 6.9 g/dL (6.4-8.2)
[2018-08-25] MEDS ORDERED: Sod Chloride 0.9% Inj 1,000 ML IV.SIG SCH (20:30)
[2018-08-25 20:40] LABS: ABG Base Excess 8.8 mmol/L (-2-2); ABG PCO2 68 mmHg (38-42); ABG PO2 54 mmHg (61-120)
--- NOTE | 2018-08-25 21:53 | CT ---
EXAM DATE: 08/25/2018 9:47 PM EST AGE/SEX: 63 years / Male INDICATIONS: Shortness of breath and chest pain. CLINICAL DATA: This is the patient's initial encounter. Patient reports that signs and symptoms have been present for 1 day and indicates a pain score of 7/10. MEDICAL/SURGICAL HISTORY: None. None. RADIATION DOSE: 9.02 CTDI (mGy) COMPARISON: [facility], CT LUNG SCREENING, 10/17/2016. . TECHNIQUE: Volumetric scanning was performed using a multi-row detector CT scanner during bolus infu aracelis of 75 ml Omnipaque 350 (iohexol) nonionic water-soluble contrast as a single exam dose. The kathia a was post processed with a variety of visualization algorithms including full volume maximum intensi ty projection and sliding thin slab reformation. Using automated exposure control and adjustment of t he mA and/or kV according to patient size, radiation dose was kept as low as reasonably achievable to obtain optimal diagnostic quality images. DICOM format image data is available electronically for r eview and comparison. FINDINGS: Pulmonary Arteries: No filling defects are seen in the pulmonary arteries out to the subsegmental ve ssels. The left and right pulmonary arteries are normal in diameter. Lung: No infiltrates seen. Mild paraseptal emphysema. Minimal bibasilar scarring. Effusion: None. Mediastinum: No evidence of mediastinal or hilar adenopathy. Minimal coronary artery calcifications. Other: The axilla is unremarkable. CONCLUSION: 1. No evidence for pulmonary embolism. 2. Mild paraseptal emphysema without infiltrate or mass. Electronically signed by: Jay Avery MD 08/25/2018 9:51 PM EST
[2018-08-25] MEDS ORDERED: MethylPREDNISolone Sod Succinate Inj 125 MG/2 ML Vial IV.PUSH ONE (22:37)
[2018-08-25] MEDS ORDERED: Bisacodyl 10 MG Supp RECTAL PRN (23:37)
[2018-08-25] MEDS ORDERED: Acetaminophen 325 MG Tablet PO PRN (23:37)
[2018-08-25] MEDS: MethylPREDNISolone Sod Succinate Inj 40 MG/ML Vial IV.PUSH SCH (23:43)
[2018-08-26 05:13] LABS: Baso % (Auto) 0.2 % (0.0-2.0); Hematocrit 43.3 % (39.0-51.0); Hemoglobin 14.7 gm/dL (13.0-17.0); Lymph # (Auto) 0.4 th/mm3 (1.0-4.8); Lymph % (Auto) 9.9 % (9.0-44.0); Mean Corpuscular HGB Conc 33.9 % (32.0-36.0); Mean Corpuscular Hemoglobin 31.3 pg (27.0-34.0); Mean Corpuscular Volume 92.4 fL (80.0-100.0); Mean Platelet Volume 7.2 fL (7.0-11.0); Mono % (Auto) 1.2 % (0.0-8.0); Neut # (Auto) 3.2 th/mm3 (1.8-7.7); Neut % (Auto) 88.7 % (16.0-70.0); Platelet Count 194 th/mm3 (150-450); Red Blood Count 4.68 mil/mm3 (4.50-5.90); Red Cell Distribution Width 14.8 % (11.6-17.2); White Blood Count 3.6 th/mm3 (4.0-11.0)
[2018-08-26 05:36] LABS: Albumin 3.2 g/dL (3.4-5.0); Anion Gap 4 meq/L (5-15); Aspartate Aminotransferase 30 U/L (15-37); Blood Urea Nitrogen 18 mg/dL (7-18); Calcium 8.3 mg/dL (8.5-10.1); Carbon Dioxide 32.7 meq/L (21.0-32.0); Chloride 105 meq/L (98-107); Glomerular Filtration Rate 54 mL/min (>89); Glucose,Random 179 mg/dL (74-106); Potassium 4.3 meq/L (3.5-5.1); Sodium 142 meq/L (136-145)
[2018-08-26 05:37] LABS: Alanine Aminotransferase 31 U/L (12-78)
[2018-08-26 05:39] LABS: Alkaline Phosphatase 86 U/L (45-117); Total Protein 6.4 g/dL (6.4-8.2)
[2018-08-26] MEDS: MethylPREDNISolone Sod Succinate Inj 40 MG/ML Vial IV.PUSH SCH ×2 (06:01→13:21)
[2018-08-26 09:49] LABS: ABG Base Excess 6.2 mmol/L (-2-2); ABG PCO2 45 mmHg (38-42); ABG PO2 60 mmHg (61-120)
--- NOTE | 2018-08-26 10:17 | P.HP ---
History of Present Illness Primary Care Physician: No Primary Care Physician Chief Complaint: Chest pain, shortness of breath History of Present Illness: 63-year-old man with a past medical history of anxiety, COPD, CAD was brought to the ED by EMS yesterday for evaluation of an acute onset of chest pain and significant shortness of breath. Patient states, he has taken a cab however could not pay the fair when the pharmacy delivery driver called the police. When the police arrived on the scene patient started complaining of significant shortness of breath as well as chest tightening and pain due to what patient describes as panic attack. When EMS arrived, patient oxygen saturation was noted to be around 88% on room air. Patient state he is on oxygen at home and smokes now 1 cigarette/day from 3 packs/day previously. Since admission to the hospital, patient reported improvement of shortness of breath as well as chest pain. And states he is now ready to go home. He has no other issues. Inpatient Certification: I certify that the inpatient services were ordered in accordance with Medicare regulations governing the order. This includes certification that hospital inpatient services are reasonable and necessary and in the case of services not specified as inpatient-only under 42 CFR 419.22(n), that they are appropriately provided as inpatient services in accordance to with the 2-midnight benchmark under 43 CFR 412.3(e) Estimated Total Length of Stay (Days): 2 Plans for Post Hospital Care: Home Review of Systems All other systems reviewed negative except as stated in HPI PMFSH - History History Provided By: Patient - Medical History Medical History: Medical History (Last Updated 08/25/18 @ 18:40 by An Soriano) AAA (abdominal aortic aneurysm) Anxiety Arthritis Bipolar disorder Depression Emphysema of lung Glaucoma Hard of hearing - Family History Family History: Family History (Last Updated 08/26/18 @ 10:13 by Jay Ramirez MD) Other CAD (coronary artery disease) - Tobacco History Second Hand Smoke Exposure: No Tobacco Use In Past 30 Days: Yes Smoking Status: Current every day smoker Tobacco Type: Cigarettes - Alcohol History How Often Do You Have a Drink Containing Alcohol: Never - Substance Use History Substance History: No History of Abuse - Travel History Recent Travel in the [place] Within the Last 8 Weeks: No Recent Travel Out of the Country Within the Last 8 Weeks: No - Immunization History Tetanus Immunization: >5 Years Hx Influenza Vaccine This Season: Yes Medications and Allergies Active Medications: Active Medications Acetaminophen (Tylenol) 650 mg PO Q4H PRN PRN Reason: Temp > 100.4 Al Hydroxide/Mg Hydroxide (Milk Of Magnesia Liq) 30 ml PO Q12H PRN PRN Reason: Mild Constipation Albuterol (Duoneb Neb (Prn)) 1 ampul NEB Q15M PRN PRN Reason: SHORTNESS OF BREATH Albuterol (Albuterol Neb (Prn)) 2.5 mg NEB Q2HR NEB PRN PRN Reason: SHORTNESS OF BREATH Albuterol (Duoneb Neb (Edward)) 1 ampul NEB Q4HR NEB EDWARD Last Admin: 08/26/18 08:34 Dose: 1 ampul Bisacodyl (Dulcolax Supp) 10 mg RECTAL DAILY PRN PRN Reason: SEVERE CONSITIPATION Lactulose (Lactulose Liq) 30 ml PO DAILY PRN PRN Reason: SEVERE CONSITIPATION Methylprednisolone Sodium Succinate (Solumedrol Inj) 60 mg IV.PUSH Q6H [facility] Last Admin: 08/26/18 06:01 Dose: 60 mg Ondansetron HCl (Zofran Inj) 4 mg IV.PUSH Q6H PRN PRN Reason: NAUSEA OR VOMITING Sennosides (Senokot) 17.2 mg PO Q12H PRN PRN Reason: Moderate Constipation Sodium Chloride (Ns Flush) 2 ml IV.FLUSH BID EDWARD Last Admin: 08/26/18 09:06 Dose: Not Given Sodium Chloride (Ns Flush) 2 ml IV.FLUSH PRN PRN PRN Reason: FLUSH AFTER USING IV ACCESS Allergies Allergy/AdvReac Type Severity Reaction Status Date / Time No Known Allergies Allergy Verified 08/25/18 18:30 Home Medications Medication Instructions Recorded Confirmed Type prednisone 1 mg PO DAILY 08/25/18 08/25/18 History Exam Vital signs: Vital Signs 08/25/18 18:30 08/25/18 18:36 08/25/18 18:40 Temperature 97.8 F 97.8 F Pulse Rate 105 H 96 H 98 H Respiratory Rate 20 20 Blood Pressure 144/95 H 140/93 H Pulse Oximetry 93 L 98 98 08/25/18 20:30 08/25/18 23:00 08/25/18 23:37 Temperature Pulse Rate 88 80 84 Respiratory Rate 15 20 16 Blood Pressure 140/73 127/72 Pulse Oximetry 98 100 99 08/26/18 00:28 08/26/18 00:31 08/26/18 01:00 Temperature Pulse Rate 67 78 Respiratory Rate 14 15 Blood Pressure 111/67 Pulse Oximetry 96 98 08/26/18 01:27 08/26/18 03:08 08/26/18 03:52 Temperature 97.3 F L 98.7 F Pulse Rate 91 H 100 H 91 H Respiratory Rate 18 17 18 Blood Pressure 126/63 108/60 Pulse Oximetry 93 L 93 L 98 08/26/18 08:00 08/26/18 08:35 Temperature 98.1 F Pulse Rate 92 H 79 Respiratory Rate 18 18 Blood Pressure 122/74 Pulse Oximetry 91 L 94 L Intake & Output 08/25/18 08/26/18 08/26/18 18:59 06:59 18:59 Intake Total 1480 / 1480 Output Total 500 / 500 Balance 980 / 980 Weight 75.75 kg 68.1 kg Intake: IV 1000 / 1000 NS Inj 1,000 ML @ 1000 mls/hr 1000 / 1000 IV.SIG BOLUS EDWARD Rx#:[id number] Oral 480 / 480 Output: Urine 500 / 500 Other: Date of Last Bowel Movement 08/24/18 # Bowel Movements 0 Weight On Admission 75.75 kg Narrative: GENERAL: NAD SKIN: Warm and dry. HEAD: Atraumatic. Normocephalic. EYES: Pupils equal and round. No scleral icterus. No injection or drainage. ENT: No nasal bleeding or discharge. Mucous membranes pink and moist. NECK: Trachea midline. No JVD. CARDIOVASCULAR: Regular rate and rhythm. RESPIRATORY: No accessory muscle use. Clear to auscultation. Breath sounds slightly decreased bilaterally. GASTROINTESTINAL: Abdomen soft, non-tender, nondistended. Hepatic and splenic margins not palpable. MUSCULOSKELETAL: Extremities without clubbing, cyanosis, or edema. No obvious deformities. NEUROLOGICAL: Awake and alert. No obvious cranial nerve deficits. Motor grossly within normal limits. Five out of 5 muscle strength in the arms and legs. Normal speech. PSYCHIATRIC: Appropriate mood and affect; insight and judgment normal. Results - Labs CBC & Chem 7: 08/26/18 04:56 08/26/18 04:56 Labs: Laboratory Results - last 24 hr 08/25/18 08/25/18 08/25/18 18:40 18:40 19:38 WBC 7.5 RBC 4.73 Hgb 14.5 Hct 43.4 MCV 91.8 MCH 30.6 MCHC 33.3 RDW 14.8 Plt Count 214 MPV 7.7 Neut % (Auto) 76.1 H Lymph % (Auto) 15.7 [place] % (Auto) 7.6 Eos % (Auto) 0.3 Baso % (Auto) 0.3 Neut # (Auto) 5.7 Lymph # (Auto) 1.2 [place] # (Auto) 0.6 Eos # (Auto) 0.0 Baso # (Auto) 0.0 WBC Differential . Differential Comment Auto diff final D-Dimer Quant (PE/DVT) 1.50 H Puncture Site Patient Temperature O2 Saturation ABG pH ABG pCO2 ABG pO2 ABG HCO3 ABG O2 Content ABG Base Excess ABG Methemoglobin Manuel Test Hemoglobin Carboxyhemoglobin O2 Delivery Device Liter Flow Inspired O2 Critical Value Sodium 140 Potassium 4.2 Chloride 102 Carbon Dioxide 34.7 H Anion Gap 3 L BUN 21 H Creatinine 1.47 H Estimated GFR 48 L Random Glucose 83 Calcium 8.8 Total Bilirubin 0.3 AST 37 ALT 34 Alkaline Phosphatase 90 Troponin I Less than 0.02 L Total Protein 6.9 Albumin 3.5 08/25/18 08/26/18 08/26/18 20:30 04:56 04:56 WBC 3.6 L D RBC 4.68 Hgb 14.7 Hct 43.3 MCV 92.4 MCH 31.3 MCHC 33.9 RDW 14.8 Plt Count 194 MPV 7.2 Neut % (Auto) 88.7 H Lymph % (Auto) 9.9 [place] % (Auto) 1.2 Eos % (Auto) 0.0 Baso % (Auto) 0.2 Neut # (Auto) 3.2 Lymph # (Auto) 0.4 L [place] # (Auto) 0.0 Eos # (Auto) 0.0 Baso # (Auto) 0.0 WBC Differential . Differential Comment Auto diff final D-Dimer Quant (PE/DVT) Puncture Site Right radial Patient Temperature 98.6 O2 Saturation 78 L* ABG pH 7.33 L ABG pCO2 68 H* ABG pO2 54 L* ABG HCO3 35 H ABG O2 Content 14.6 ABG Base Excess 8.8 H ABG Methemoglobin 0.8 Manuel Test Present Hemoglobin 13.4 Carboxyhemoglobin 11.8 H* O2 Delivery Device Liter Flow 21.00 Inspired O2 Critical Value Yes Sodium 142 Potassium 4.3 Chloride 105 Carbon Dioxide 32.7 H Anion Gap 4 L BUN 18 Creatinine 1.33 H Estimated GFR 54 L Random Glucose 179 H Calcium 8.3 L Total Bilirubin 0.5 AST 30 ALT 31 Alkaline Phosphatase 86 Troponin I Total Protein 6.4 Albumin 3.2 L 08/26/18 09:38 WBC RBC Hgb Hct MCV MCH MCHC RDW Plt Count MPV Neut % (Auto) Lymph % (Auto) [place] % (Auto) Eos % (Auto) Baso % (Auto) Neut # (Auto) Lymph # (Auto) [place] # (Auto) Eos # (Auto) Baso # (Auto) WBC Differential Differential Comment D-Dimer Quant (PE/DVT) Puncture Site Right radial Patient Temperature 98.6 O2 Saturation 86 L* ABG pH 7.44 H ABG pCO2 45 H ABG pO2 60 L ABG HCO3 30 H ABG O2 Content 17.1 ABG Base Excess 6.2 H ABG Methemoglobin 1.3 Manuel Test + Hemoglobin 14.2 Carboxyhemoglobin 5.4 H* O2 Delivery Device Room air Liter Flow Inspired O2 21 Critical Value Yes Sodium Potassium Chloride Carbon Dioxide Anion Gap BUN Creatinine Estimated GFR Random Glucose Calcium Total Bilirubin AST ALT Alkaline Phosphatase Troponin I Total Protein Albumin - Imaging Impressions Chest X-Ray 08/25/18 18:36 CONCLUSION: No acute cardiopulmonary disease Chest CTA 08/25/18 20:20 CONCLUSION: 1. No evidence for pulmonary embolism. 2. Mild paraseptal emphysema without infiltrate or mass. Caprini VTE Risk Assessment Caprini VTE Risk Assessment: No/Low Risk (score <= 1) Caprini Risk Assessment Model: Point Value = 1 Point Value = 2 Point Value = 3 Point Value = 5 Age 41-60 Minor surgery BMI > 25 kg/m2 Swollen legs Varicose veins or History of unexplained or recurrent spontaneous Oral contraceptives or hormone replacement Sepsis (< 1 month) Serious lung disease, including pneumonia (< 1 month) Abnormal pulmonary function Acute myocardial infarction Congestive heart failure (< 1 month) History of inflammatory bowel disease Medical patient at bed rest Age 61-74 Arthroscopic surgery Major open surgery (> 45 min) Laparoscopic surgery (> 45 min) Malignancy Confined to bed (> 72 hours) Immobilizing plaster cast Central venous access Age >= 75 History of VTE Family history of VTE Factor V Leiden Prothrombin [id number] Lupus anticoagulant Anticardiolipin antibodies Elevated serum homocysteine Heparin-induced thrombocytopenia Other congenital or acquired thrombophilia Stroke (< 1 month) Elective arthroplasty Hip, pelvis, or leg fracture Acute spinal cord injury (< 1 month) Prophylaxis Regimen: Total Risk Factor Score Risk Level Prophylaxis Regimen 0-1 Low Early ambulation 2 Moderate Order ONE of the following: *Sequential Compression Device (SCD) *Heparin 5000 units SQ BID 3-4 Higher Order ONE of the following medications: *Heparin 5000 units SQ TID *Enoxaparin/Lovenox 40 mg SQ daily (WT < 150 kg, CrCl > 30 mL/min) *Enoxaparin/Lovenox 30 mg SQ daily (WT < 150 kg, CrCl > 10-29 mL/min) *Enoxaparin/Lovenox 30 mg SQ BID (WT < 150 kg, CrCl > 30 mL/min) AND/OR *Sequential Compression Device (SCD) 5 or more Highest Order ONE of the following medications: *Heparin 5000 units SQ TID (Preferred with Epidurals) *Enoxaparin/Lovenox 40 mg SQ daily (WT < 150 kg, CrCl > 30 mL/min) *Enoxaparin/Lovenox 30 mg SQ daily (WT < 150 kg, CrCl > 10-29 mL/min) *Enoxaparin/Lovenox 30 mg SQ BID (WT < 150 kg, CrCl > 30 mL/min) AND *Sequential Compression Device (SCD) Assessment and Plan - Plan 63-year-old man with Atypical chest pain-now resolved Likely secondary to panic attack CTA pulmonary negative for PE, chest x-ray noted and reviewed by me without any cardiopulmonary disease Next likely ACS as cardiac enzyme and EKG without any evidence of infarction Mild COPD exacerbation-resolved Patient responded well to Solu-Medrol Will switch to p.o. prednisone and start Spiriva, DuoNeb, Symbicort ABG was repeated with significant improvement of oxygen saturation Patient strongly advised on tobacco cessation Will discharge patient home Discharge patient to home Condition on discharge: Improved Regular Diet as tolerated Ad Rosita activity Rx written: See EMR Follow-up with primary care physician
[2018-08-26 13:29] VITALS: BP 125/60; PULSE 85; RESP 20; TEMP 98.5; O2SAT 91
--- NOTE | 2018-08-26 22:30 | ECG ---
Date Performed: 08/25/2018 Time Performed: 18:33:52 PTAGE: 63 years EKG: Sinus rhythm POSSIBLE RIGHT ATRIAL ENLARGEMENT POSSIBLE LEFT ATRIAL ENLARGEMENT BORDERLINE RIGHT AXIS DEVIATION P OSSIBLE RIGHT VENTRICULAR CONDUCTION DELAY SEPTAL MYOCARDIAL INFARCTION ABNORMAL ECG PREVIOUS TRACING : 11/21/2017 10.17 Since the previous tracing, no significant change noted DOCTOR: Barron Chang Interpretating Date/Time 08/26/2018 22:29:09
== END 2018-08-26 16:55 | disposition home or self-care (01) ==
LOC: NEPC 17:43 → NEDA 17:43 → N06 08-26 01:15
PROVIDERS: ADMIT Hospitalist; ATTEND Hospitalist

== ENCOUNTER 2018-09-07 18:47 | Observation (INO) ==
--- NOTE | 2018-09-07 18:59 | ED ---
HPI General Chief Complaint: Respiratory Symptoms Stated Complaint: SOB Complaint Time Seen by Provider: 09/07/18 18:53 Source: patient and EMS Mode of arrival: EMS Limitations: no limitations History of Present Illness 63-year-old male complains of wheezing and shortness of breath. Patient has history of asthma. Patient states that he ran out of his inhaler at home. Patient was seen at [facility] several days ago and was given treatment at that time. Patient states that he got worse since then. Patient denies any fever chills. Patient denies any chest pain. EMS was called. Patient was given DuoNeb x2 and Solu-Medrol [address] to the ED. Patient is a smoker. MD Complaint: Reports shortness of breath and "asthma attack" Onset (ago): day(s) Context: Reports smoke/fume exposure Severity: moderate Consistency/Duration: progressively worsening Relieving factors: oxygen and bronchodilators Exacerbating factors: nothing Known history of: Reports COPD and asthma Associated symptoms: Reports denies other symptoms Treatment prior to arrival: Reports oxygen and bronchodilator Related Data Previous Rx's Medication Instructions Recorded albuterol sulfate [Ventolin HFA] 2 puff INHALATION Q4-6H PRN #1 g 08/26/18 budesonide-formoterol [Symbicort] 2 puff INHALATION BID #1 g 08/26/18 ipratropium bromide [Atrovent HFA] 1 puff INHALATION QID #1 g 08/26/18 prednisone 10 mg PO DAILY #7 tab 08/26/18 tiotropium bromide [Spiriva with 1 cap INHALATION DAILY #30 inh 08/26/18 HandiHaler] azithromycin 250 mg PO DAILY 4 Days #4 tab 09/07/18 methylprednisolone [Medrol (Aamir)] See Label Instructions PO PER PKG 09/07/18 DIR #21 each Allergies Allergy/AdvReac Type Severity Reaction Status Date / Time No Known Allergies Allergy Verified 08/25/18 18:30 Review of Systems ROS: all other systems reviewed are negative PMFSH History History Provided By: Patient Medical History Medical History Diabetes (Acute) Schizophrenia (Acute) AAA (abdominal aortic aneurysm) (Acute) Anxiety (Acute) Arthritis (Acute) Bipolar disorder (Acute) Depression (Acute) Emphysema of lung (Acute) Glaucoma (Acute) Hard of hearing (Acute) Family History Family History Other CAD (coronary artery disease) Social History Social History Substance History: No History of Abuse Second Hand Smoke Exposure: Yes Smoking Status: Current every day smoker Tobacco Type: Cigarettes How Often Do You Have a Drink Containing Alcohol: 2 to 3 times a week Recent Travel in [facility] within the Last 8 Weeks: No Recent Out of Country Travel within the Last 8 Weeks: No Exam Narrative Exam Narrative: GENERAL: Well-nourished, well-developed patient. SKIN: Focused skin assessment warm/dry. HEAD: Normocephalic. EYES: No scleral icterus. No injection or drainage. NECK: Supple, trachea midline. No JVD or lymphadenopathy. CARDIOVASCULAR: Regular rate and rhythm without murmurs, gallops, or rubs. RESPIRATORY: Breath sounds equal bilaterally. No accessory muscle use. Patient has moderate expiratory wheezes bilaterally. GASTROINTESTINAL: Abdomen soft, non-tender, nondistended. MUSCULOSKELETAL: No cyanosis, or edema. BACK: Nontender without obvious deformity. No CVA tenderness. Course Initial Documented Vital Signs Temperature 98.8 F 09/07/18 18:56 Pulse Rate 82 09/07/18 18:56 Respiratory Rate 20 09/07/18 18:56 Blood Pressure 134/66 09/07/18 18:56 Pulse Oximetry 100 09/07/18 18:56 Last Documented Vital Signs Temperature 98.7 F 09/07/18 18:59 Pulse Rate 103 H 09/07/18 19:15 Respiratory Rate 18 09/07/18 19:15 Blood Pressure 130/66 09/07/18 18:59 Pulse Oximetry 100 09/07/18 18:59 Medical Decision Making MDM Narrative Medical decision making narrative: 63-year-old male in by EMS for wheezing and shortness of breath. History of COPD. Patient is a smoker. Albuterol with Atrovent unit dose treatment given by EMS and Solu-Medrol 125 mg given by EMS. Patient was given more albuterol and Atrovent treatment in the ED. The patient's case was checked out to me at the conclusion of Dr. Cardona's shift at 7 PM. Please see his initial history and physical. The patient presented with reports of wheezing and shortness of breath with a history of COPD. The patient continues to smoke. The patient was given Solu-Medrol by ambulance services prior to arrival. The patient was also started on nebulizer treatments. On arrival the patient's examination is remarkable for continued expiratory wheezes. During the course of the patient's emergency department visit, the patient was placed on a shelter monitor with oximetry and frequent blood pressure monitoring. The patient had IV access obtained and blood work sent for analysis. The patient was initially provided DuoNeb's x2 The patient's diagnostic studies are remarkable for chest x-ray that shows no acute cardiopulmonary disease. A white count of 5.6, hemoglobin 12.8, platelets 159 reveals 72.6, monocytes 8.2. Chemistries remarkable for a CO2 of 33.4, anion gap 4, creatinine 1.41, calcium 7.8. The patient on reexamination reports that he is feeling improved. The patient is continuing on a nebulizer treatment. The patient will be reassessed after this is completed. The patient on reassessment continues to have some soft expiratory wheezes. The patient was on 3 L nasal cannula O2 was saturating 95-96%. The patient was taken off supplemental oxygen to reassess his room air oxygenation and the patient's room air oxygenation was noted to be at 87%. The patient will be admitted to the hospital for continued treatment of his COPD exacerbation including IV steroids and nebulizer treatments. The patient's case including history, pertinent physical examination findings, and laboratory studies were discussed with Dr. Bills. It was agreed that the patient would be admitted to the hospitalist service. The patient's results were discussed with the patient, including the plan of care. I explained that further testing and/ or monitoring is indicated based on the patient's history, examination, and/ or laboratory findings. Therefore, I recommended admission for additional evaluation. The patient expressed understanding and was agreeable with this plan. The patient was admitted to the hospital in stable condition and sent to a bed under the care of the [facility] service. Medical Screen Exam Complete: Yes Emergency Medical Condition: Yes Differential Diagnosis Differential Diagnosis: This including acute exacerbation COPD, rhonchi days, pneumonia, PE, pneumothorax. Lab Data Result diagrams: 09/07/18 19:00 09/07/18 19:00 Lab Results 09/07/18 09/07/18 Range/Units 19:00 19:00 WBC 5.6 (4.0-11.0) th/mm3 RBC 4.13 L (4.50-5.90) mil/mm3 Hgb 12.8 L (13.0-17.0) gm/dL Hct 37.9 L (39.0-51.0) % MCV 91.7 (80.0-100.0) fL MCH 30.9 (27.0-34.0) pg MCHC 33.7 (32.0-36.0) % RDW 15.2 (11.6-17.2) % Plt Count 159 (150-450) th/mm3 MPV 7.8 (7.0-11.0) fL Neut % (Auto) 72.6 H (16.0-70.0) % Lymph % (Auto) 17.7 (9.0-44.0) % [place] % (Auto) 8.2 H (0.0-8.0) % Eos % (Auto) 1.0 (0.0-4.0) % Baso % (Auto) 0.5 (0.0-2.0) % Neut # (Auto) 4.0 (1.8-7.7) th/mm3 Lymph # (Auto) 1.0 (1.0-4.8) th/mm3 [place] # (Auto) 0.5 (0.0-0.9) th/mm3 Eos # (Auto) 0.1 (0.0-0.4) th/mm3 Baso # (Auto) 0.0 (0.0-0.2) th/mm3 WBC Differential . Differential Comment Auto diff final Sodium 143 (136-145) meq/L Potassium 4.6 (3.5-5.1) meq/L Chloride 106 (98-107) meq/L Carbon Dioxide 33.4 H (21.0-32.0) meq/L Anion Gap 4 L (5-15) meq/L BUN 18 (7-18) mg/dL Creatinine 1.41 H (0.60-1.30) mg/dL Estimated GFR 51 L (>89) mL/min Random Glucose 90 (74-106) mg/dL Calcium 7.8 L (8.5-10.1) mg/dL Imaging Data Radiologist's impression: Chest X-Ray 09/07/18 18:54 CONCLUSION: The lungs are clear. Discharge Plan Discharge Disposition Patient Disposition: ED Admit(ED Internal Use Only) Discharge Details Diagnosis: COPD exacerbation, COPD with hypoxia Physicians Team ED Provider: Caroline Guy Primary Care Provider: Primary Care Denise Bradley Rxs /Orders / Referrals /Forms Prescriptions: New azithromycin 250 mg tablet 250 mg PO DAILY 4 Days Qty: 4 RF: 0 methylprednisolone [Medrol (Aamir)] 4 mg tablets,dose pack See Label Instructions PO PER PKG DIR Qty: 21 RF: 0 No Action tiotropium bromide [Spiriva with HandiHaler] 18 mcg Capsule, W/Inhalation Device 1 cap INHALATION DAILY Qty: 30 RF: 3 ipratropium bromide [Atrovent HFA] 17 mcg/actuation Hfa Aerosol Inhaler 1 puff INHALATION QID Qty: 1 RF: 3 albuterol sulfate [Ventolin HFA] 90 mcg/actuation Hfa Aerosol Inhaler 2 puff INHALATION Q4-6H PRN (Reason: Shortness Of Breath) Qty: 1 RF: 3 budesonide-formoterol [Symbicort] 160-4.5 mcg/actuation Hfa Aerosol Inhaler 2 puff INHALATION BID Qty: 1 RF: 3 prednisone 5 mg Tablet 10 mg PO DAILY Qty: 7 RF: 0 Referrals: [facility] [Outside] - 2 Days Status ED Status: With Doctor
--- NOTE | 2018-09-07 19:08 | XR ---
EXAM DATE: 09/07/2018 7:05 PM EST AGE/SEX: 63 years / Male INDICATIONS: Short of breath CLINICAL DATA: This is the patient's initial encounter. Patient reports that signs and symptoms have been present for 1 day and indicates a pain score of 0/10. MEDICAL/SURGICAL HISTORY: . . Emphysema. Cardiovascular disease. Chronic obstructive pulmonary disease None. [place] [facility] [place]. . FINDINGS: A single AP view of the chest demonstrates the lungs to be symmetrically aerated without evidence of mass, infiltrate or effusion. The cardiomediastinal contours are unremarkable. Osseous structures a re intact. CONCLUSION: The lungs are clear. Electronically signed by: Baldev Quiroz MD Board Certified Radiologist 09/07/2018 7:07 PM EST
[2018-09-07 19:09] LABS: Baso % (Auto) 0.5 % (0.0-2.0); Eos # (Auto) 0.1 th/mm3 (0.0-0.4); Hematocrit 37.9 % (39.0-51.0); Hemoglobin 12.8 gm/dL (13.0-17.0); Lymph % (Auto) 17.7 % (9.0-44.0); Mean Corpuscular HGB Conc 33.7 % (32.0-36.0); Mean Corpuscular Hemoglobin 30.9 pg (27.0-34.0); Mean Corpuscular Volume 91.7 fL (80.0-100.0); Mean Platelet Volume 7.8 fL (7.0-11.0); Mono # (Auto) 0.5 th/mm3 (0.0-0.9); Mono % (Auto) 8.2 % (0.0-8.0); Neut % (Auto) 72.6 % (16.0-70.0); Platelet Count 159 th/mm3 (150-450); Red Blood Count 4.13 mil/mm3 (4.50-5.90); Red Cell Distribution Width 15.2 % (11.6-17.2); White Blood Count 5.6 th/mm3 (4.0-11.0)
[2018-09-07 19:21] LABS: Calcium 7.8 mg/dL (8.5-10.1); Carbon Dioxide 33.4 meq/L (21.0-32.0); Potassium 4.6 meq/L (3.5-5.1)
[2018-09-07] MEDS ORDERED: Azithromycin 250 MG Tablet PO ONE (21:12)
[2018-09-07] MEDS ORDERED: Sodium Chlor 0.9% Inj 500 ML IV.SIG ONE (21:13)
[2018-09-07] MEDS ORDERED: Acetaminophen 325 MG Tablet PO PRN (23:21)
[2018-09-07] MEDS ORDERED: Bisacodyl 10 MG Supp RECTAL PRN (23:21)
--- NOTE | 2018-09-07 23:30 | P.HP ---
History of Present Illness Service: [facility] Primary Care Physician: No Primary Care Physician History of Present Illness: 63-year-old male with a past medical history significant for COPD and bipolar disorder presents to the emergency department for the evaluation of shortness of breath. The patient reports he has had shortness of breath "all his life" but that it is been worse over the past week. He was evaluated yesterday at [facility] where he was given medications and discharged. He did not fill any of his prescriptions. He is not sure what his diagnosis was. Complains of dyspnea on exertion and shortness of breath at rest. He also endorses chest pain/pressure that has been going on for 8 years which acutely worsened earlier today and is now resolved. The patient states he is homeless and normally sleeps on the street. He has audible wheezes and rhonchi. He denies any fever/chills. No increased sputum production. Cough is at baseline. The patient continues to smoke. No abdominal pain. No nausea/ vomiting/diarrhea. No fever/chills. Inpatient Certification: I certify that the inpatient services were ordered in accordance with Medicare regulations governing the order. This includes certification that hospital inpatient services are reasonable and necessary and in the case of services not specified as inpatient-only under 42 CFR 419.22(n), that they are appropriately provided as inpatient services in accordance to with the 2-midnight benchmark under 43 CFR 412.3(e) Review of Systems All other systems reviewed negative except as stated [facility] - History History Provided By: Patient - Medical History Medical History: Medical History (Last Reviewed 09/07/18 @ 23:26 by Rocio Bills MD) Diabetes Schizophrenia AAA (abdominal aortic aneurysm) Anxiety Arthritis Bipolar disorder Depression Emphysema of lung Glaucoma Hard of hearing - Surgical History Surgical History: Surgical History (Last Updated 09/07/18 @ 23:26 by Rocio Bills MD) History of thoracic aortic aneurysm repair - Family History Family History: Family History (Last Updated 09/07/18 @ 23:26 by Rocio Bills MD) Other CAD (coronary artery disease) Diabetes mellitus - Social History I have reviewed the patient's Social History: Yes - Tobacco History Second Hand Smoke Exposure: Yes Tobacco Use In Past 30 Days: Yes Smoking Status: Current every day smoker Tobacco Type: Cigarettes - Alcohol History How Often Do You Have a Drink Containing Alcohol: 2 to 3 times a week - Substance Use History Substance History: No History of Abuse - Travel History Recent Travel in the [place] Within the Last 8 Weeks: No Recent Travel Out of the Country Within the Last 8 Weeks: No - Immunization History Tetanus Immunization: <5 Years Medications and Allergies Allergies Allergy/AdvReac Type Severity Reaction Status Date / Time No Known Allergies Allergy Verified 08/25/18 18:30 Exam Vital signs: Vital Signs 09/07/18 18:56 09/07/18 18:59 09/07/18 19:05 Temperature 98.8 F 98.7 F Pulse Rate 82 86 100 H Respiratory Rate 20 22 18 Blood Pressure 134/66 130/66 Pulse Oximetry 100 100 09/07/18 19:15 09/07/18 22:00 Temperature Pulse Rate 103 H 99 H Respiratory Rate 18 18 Blood Pressure 102/55 L Pulse Oximetry 98 Intake & Output 09/07/18 09/07/18 09/08/18 06:59 18:59 06:59 Intake Total 700 / 700 Balance 700 / 700 Weight 65.771 kg Intake: IV 500 / 500 NS Inj 500 ML @ Wide Open IV. 500 / 500 SIG BOLUS ONE Rx#:[id number] Oral 200 / 200 Narrative: Gen.: No acute distress Head: Normocephalic. Atraumatic. EENT: Pupils equal round and reactive to light. Nose without drainage. Airway intact. Throat without injection. Cardiovascular: Regular rate and rhythm. No murmurs, rubs or gallops. Respiratory: Diffuse bilateral wheezes and rhonchi. Abdomen: Soft, nontender, nondistended. No peritoneal signs. Musculoskeletal: No gross deformities. No edema. Skin: No obvious rashes or erythema. Neuro: Sensory and motor grossly intact. Cranial nerves II through XII grossly intact. Results - Labs CBC & Chem 7: 09/07/18 19:00 09/07/18 19:00 Labs: Laboratory Results - last 24 hr 09/07/18 09/07/18 19:00 19:00 WBC 5.6 RBC 4.13 L Hgb 12.8 L Hct 37.9 L MCV 91.7 MCH 30.9 MCHC 33.7 RDW 15.2 Plt Count 159 MPV 7.8 Neut % (Auto) 72.6 H Lymph % (Auto) 17.7 [place] % (Auto) 8.2 H Eos % (Auto) 1.0 Baso % (Auto) 0.5 Neut # (Auto) 4.0 Lymph # (Auto) 1.0 [place] # (Auto) 0.5 Eos # (Auto) 0.1 Baso # (Auto) 0.0 WBC Differential . Differential Comment Auto diff final Sodium 143 Potassium 4.6 Chloride 106 Carbon Dioxide 33.4 H Anion Gap 4 L BUN 18 Creatinine 1.41 H Estimated GFR 51 L Random Glucose 90 Calcium 7.8 L - Imaging Impressions Chest X-Ray 09/07/18 18:54 CONCLUSION: The lungs are clear. Caprini VTE Risk Assessment Caprini VTE Risk Assessment: Moderate/High Risk (score >= 2) Caprini Risk Assessment Model: Point Value = 1 Point Value = 2 Point Value = 3 Point Value = 5 Age 41-60 Minor surgery BMI > 25 kg/m2 Swollen legs Varicose veins or History of unexplained or recurrent spontaneous Oral contraceptives or hormone replacement Sepsis (< 1 month) Serious lung disease, including pneumonia (< 1 month) Abnormal pulmonary function Acute myocardial infarction Congestive heart failure (< 1 month) History of inflammatory bowel disease Medical patient at bed rest Age 61-74 Arthroscopic surgery Major open surgery (> 45 min) Laparoscopic surgery (> 45 min) Malignancy Confined to bed (> 72 hours) Immobilizing plaster cast Central venous access Age >= 75 History of VTE Family history of VTE Factor V Leiden Prothrombin [id number] Lupus anticoagulant Anticardiolipin antibodies Elevated serum homocysteine Heparin-induced thrombocytopenia Other congenital or acquired thrombophilia Stroke (< 1 month) Elective arthroplasty Hip, pelvis, or leg fracture Acute spinal cord injury (< 1 month) Prophylaxis Regimen: Total Risk Factor Score Risk Level Prophylaxis Regimen 0-1 Low Early ambulation 2 Moderate Order ONE of the following: *Sequential Compression Device (SCD) *Heparin 5000 units SQ BID 3-4 Higher Order ONE of the following medications: *Heparin 5000 units SQ TID *Enoxaparin/Lovenox 40 mg SQ daily (WT < 150 kg, CrCl > 30 mL/min) *Enoxaparin/Lovenox 30 mg SQ daily (WT < 150 kg, CrCl > 10-29 mL/min) *Enoxaparin/Lovenox 30 mg SQ BID (WT < 150 kg, CrCl > 30 mL/min) AND/OR *Sequential Compression Device (SCD) 5 or more Highest Order ONE of the following medications: *Heparin 5000 units SQ TID (Preferred with Epidurals) *Enoxaparin/Lovenox 40 mg SQ daily (WT < 150 kg, CrCl > 30 mL/min) *Enoxaparin/Lovenox 30 mg SQ daily (WT < 150 kg, CrCl > 10-29 mL/min) *Enoxaparin/Lovenox 30 mg SQ BID (WT < 150 kg, CrCl > 30 mL/min) AND *Sequential Compression Device (SCD) Assessment and Plan - Plan Assessment/plan: 1. COPD exacerbation Patient requiring supplemental oxygen to maintain saturations above 88% Chest x-ray negative for acute process, personally reviewed IV steroids Duo nebs 2. Schizophrenia/bipolar disorder Patient not currently taking any medications Outpatient follow-up 3. Chronic kidney disease Creatinine 1.41, baseline Monitor renal function FEN Heart healthy diet Electrolytes: Urine replete as needed Heparin
[2018-09-08] MEDS: Heparin - SQ 10,000 UNITS/ML Vial SQ SCH ×3 (00:05→18:16)
[2018-09-08 00:09] LABS: Creatine Kinase 580 U/L (39-308)
[2018-09-08 00:21] LABS: CKMB Percent 3.9 % (0.0-4.0); Creatine Kinase MB 22.4 ng/mL (0.5-3.6)
[2018-09-08] MEDS: MethylPREDNISolone Sod Succinate Inj 40 MG/ML Vial IV.PUSH SCH ×3 (05:11→18:15)
[2018-09-08 07:33] LABS: Hematocrit 36.7 % (39.0-51.0); Hemoglobin 12.2 gm/dL (13.0-17.0); Lymph # (Auto) 0.3 th/mm3 (1.0-4.8); Lymph % (Auto) 8.7 % (9.0-44.0); Mean Corpuscular HGB Conc 33.2 % (32.0-36.0); Mean Corpuscular Hemoglobin 30.8 pg (27.0-34.0); Mean Corpuscular Volume 92.8 fL (80.0-100.0); Mean Platelet Volume 8.1 fL (7.0-11.0); Mono # (Auto) 0.1 th/mm3 (0.0-0.9); Mono % (Auto) 2.5 % (0.0-8.0); Neut # (Auto) 2.8 th/mm3 (1.8-7.7); Neut % (Auto) 88.8 % (16.0-70.0); Platelet Count 143 th/mm3 (150-450); Red Blood Count 3.95 mil/mm3 (4.50-5.90); Red Cell Distribution Width 15.7 % (11.6-17.2); White Blood Count 3.1 th/mm3 (4.0-11.0)
[2018-09-08 08:04] LABS: Anion Gap 5 meq/L (5-15); Blood Urea Nitrogen 16 mg/dL (7-18); Calcium 8.1 mg/dL (8.5-10.1); Carbon Dioxide 29.5 meq/L (21.0-32.0); Chloride 111 meq/L (98-107); Creatine Kinase 435 U/L (39-308); Glomerular Filtration Rate 60 mL/min (>89); Glucose,Random 207 mg/dL (74-106); Potassium 4.4 meq/L (3.5-5.1); Sodium 145 meq/L (136-145)
[2018-09-08 08:25] LABS: CKMB Percent 3.3 % (0.0-4.0); Creatine Kinase MB 14.2 ng/mL (0.5-3.6)
[2018-09-08] MEDS: Senna/Docusate Sodium 8.6/50 MG Tablet PO SCH ×2 (09:38→21:02)
--- NOTE | 2018-09-08 09:47 | P.PN ---
Subjective Interval history: awake and alert, good po no complains of chest discomfort minmal cough Physical Exam Vital signs: Vital Signs 09/07/18 18:56 09/07/18 18:59 09/07/18 19:05 Temperature 98.8 F 98.7 F Pulse Rate 82 86 100 H Respiratory Rate 20 22 18 Blood Pressure 134/66 130/66 Pulse Oximetry 100 100 09/07/18 19:15 09/07/18 22:00 09/07/18 23:30 Temperature Pulse Rate 103 H 99 H 59 L Respiratory Rate 18 18 18 Blood Pressure 102/55 L Pulse Oximetry 98 97 09/07/18 23:32 09/08/18 00:38 09/08/18 03:55 Temperature 98.6 F Pulse Rate 88 79 109 H Respiratory Rate 18 20 18 Blood Pressure 115/63 125/63 Pulse Oximetry 94 L 95 09/08/18 04:00 09/08/18 07:26 Temperature 98.2 F 97.9 F Pulse Rate 88 79 Respiratory Rate 18 16 Blood Pressure 113/61 101/55 L Pulse Oximetry 96 96 Intake & Output 09/07/18 09/08/18 09/08/18 18:59 06:59 18:59 Intake Total 963 / 963 Balance 963 / 963 Weight 65.771 kg 65.77 kg Intake: IV 500 / 500 NS Inj 500 ML @ Wide Open IV. 500 / 500 SIG BOLUS ONE Rx#:[id number] Oral 463 / 463 Other: Date of Last Bowel Movement 09/07/18 Weight On Admission 65.77 kg Narrative: Gen.: No acute distress Head: Normocephalic. Atraumatic. EENT: Pupils equal round and reactive to light. Nose without drainage. Airway intact. Throat without injection/no exudates Cardiovascular: Regular rate and rhythm. No murmurs, rubs or gallops. Respiratory: occasional rhonchis Abdomen: Soft, nontender, nondistended. No peritoneal signs. Musculoskeletal: No gross deformities. No edema. Skin: No obvious rashes or erythema. Neuro: Sensory and motor grossly intact. Cranial nerves II through XII grossly intact. Results - Labs CBC & Chem 7: 09/08/18 06:44 09/08/18 06:44 Laboratory Results - last 24 hr 09/07/18 09/07/18 09/07/18 19:00 19:00 23:45 WBC 5.6 RBC 4.13 L Hgb 12.8 L Hct 37.9 L MCV 91.7 MCH 30.9 MCHC 33.7 RDW 15.2 Plt Count 159 MPV 7.8 Neut % (Auto) 72.6 H Lymph % (Auto) 17.7 [place] % (Auto) 8.2 H Eos % (Auto) 1.0 Baso % (Auto) 0.5 Neut # (Auto) 4.0 Lymph # (Auto) 1.0 [place] # (Auto) 0.5 Eos # (Auto) 0.1 Baso # (Auto) 0.0 WBC Differential . Differential Comment Auto diff final Sodium 143 Potassium 4.6 Chloride 106 Carbon Dioxide 33.4 H Anion Gap 4 L BUN 18 Creatinine 1.41 H Estimated GFR 51 L Random Glucose 90 Calcium 7.8 L Total Creatine Kinase 580 H CK-MB (CK-2) 22.4 H CK-MB (CK-2) % 3.9 Troponin I Less than 0.02 L 09/08/18 09/08/18 06:44 06:44 WBC 3.1 L RBC 3.95 L Hgb 12.2 L Hct 36.7 L MCV 92.8 MCH 30.8 MCHC 33.2 RDW 15.7 Plt Count 143 L MPV 8.1 Neut % (Auto) 88.8 H Lymph % (Auto) 8.7 L [place] % (Auto) 2.5 Eos % (Auto) 0.0 Baso % (Auto) 0.0 Neut # (Auto) 2.8 Lymph # (Auto) 0.3 L [place] # (Auto) 0.1 Eos # (Auto) 0.0 Baso # (Auto) 0.0 WBC Differential . Differential Comment Auto diff final Sodium 145 Potassium 4.4 Chloride 111 H Carbon Dioxide 29.5 Anion Gap 5 BUN 16 Creatinine 1.21 Estimated GFR 60 L Random Glucose 207 H D Calcium 8.1 L Total Creatine Kinase 435 H CK-MB (CK-2) 14.2 H CK-MB (CK-2) % 3.3 Troponin I Less than 0.02 L Microbiology 09/07/18 19:37 Nasal Wash Influenza Types A,B Antigen - Final Negative for FLU A and B antigen Infection due to influenza A or B cannot be ruled out since the antigen present in the sample may be below the detection limit of the test. - Imaging Impressions Chest X-Ray 09/07/18 18:54 CONCLUSION: The lungs are clear. Assessment and Plan - Plan Assessment/plan: 1. COPD exacerbation Patient requiring supplemental oxygen to maintain saturations above 88% Chest x-ray negative for acute process, personally reviewed IV steroids- decreaset o q 8- if continues to improve change to po in am Duo nebs start MDIs- Spriva, albuterol and flovent 2. Schizophrenia/bipolar disorder- clinically cooperative Patient not currently taking any medications Outpatient follow-up 3. Chronic kidney disease Creatinine 1.41, baseline Monitor renal function FEN Heart healthy diet Electrolytes: Urine replete as needed Heparin ambulate as tolerated C conuslt to assit with meds on DC Possibleyt tomorrow
[2018-09-08] MEDS: Tiotropium Bromide 18 MCG/ACT Inhaler INH SCH (12:43)
[2018-09-08 12:52] LABS: Creatine Kinase 422 U/L (39-308)
[2018-09-08 13:05] LABS: CKMB Percent 2.5 % (0.0-4.0); Creatine Kinase MB 10.7 ng/mL (0.5-3.6)
--- NOTE | 2018-09-08 14:08 | ECG ---
Date Performed: 09/08/2018 Time Performed: 05:12:48 PTAGE: 63 years EKG: Sinus rhythm WITH SHORT MT INTERVAL LOW QRS VOLTAGE IN EXTREMITY LEADS BORDERLINE ECG Compared to PREVIOUS TRACING , the sinus rate is slower. PREVIOUS TRACING 09/07/2018 23.41.55 DOCTOR: Manny Olsen Interpretating Date/Time 09/08/2018 14:06:34
--- NOTE | 2018-09-08 14:08 | ECG ---
Date Performed: 09/07/2018 Time Performed: 23:41:55 PTAGE: 63 years EKG: SINUS TACHYCARDIA BORDERLINE RIGHT AXIS DEVIATION INCOMPLETE RIGHT BUNDLE BRANCH BLOCK SEPT AL MYOCARDIAL INFARCTION ABNORMAL ECG Compared to PREVIOUS TRACING , the sinus rate is faster. PREVIOUS TRACING 08/25/2018 18.33.52 DOCTOR: Manny Oslen Interpretating Date/Time 09/08/2018 14:06:07
[2018-09-09] MEDS: Heparin - SQ 10,000 UNITS/ML Vial SQ SCH ×2 (00:19→08:54)
[2018-09-09] MEDS: MethylPREDNISolone Sod Succinate Inj 40 MG/ML Vial IV.PUSH SCH ×2 (01:08→12:52)
[2018-09-09] MEDS: Senna/Docusate Sodium 8.6/50 MG Tablet PO SCH (08:54)
[2018-09-09] MEDS: Tiotropium Bromide 18 MCG/ACT Inhaler INH SCH (09:00)
[2018-09-09 12:07] VITALS: BP 117/65; PULSE 82; RESP 16; TEMP 97.7; O2SAT 95
--- NOTE | 2018-09-09 12:23 | P.PN ---
Subjective Interval history: awake and alert ambualting around no fever or chills no chest pain ro shortness of breath Physical Exam Vital signs: Vital Signs 09/08/18 16:00 09/08/18 19:25 09/08/18 20:00 Temperature 98.2 F Pulse Rate 69 69 81 Respiratory Rate 18 18 20 Blood Pressure 119/66 123/64 Pulse Oximetry 92 L 95 93 L 09/08/18 21:39 09/08/18 23:45 09/09/18 00:00 Temperature 97.6 F Pulse Rate 91 H 74 86 Respiratory Rate 18 18 Blood Pressure 118/69 Pulse Oximetry 92 L 09/09/18 03:46 09/09/18 03:53 09/09/18 07:42 Temperature 98.0 F Pulse Rate 72 74 72 Respiratory Rate 18 18 15 Blood Pressure 127/69 Pulse Oximetry 96 98 09/09/18 08:00 09/09/18 11:38 09/09/18 12:00 Temperature 98.0 F 97.7 F Pulse Rate 78 70 82 Respiratory Rate 16 14 16 Blood Pressure 135/77 117/65 Pulse Oximetry 94 L 95 Intake & Output 09/08/18 09/09/18 09/09/18 18:59 06:59 18:59 Intake Total 720 / 720 Balance 720 / 720 Intake: Oral 720 / 720 Other: # Voids 2 Date of Last Bowel Movement 09/08/18 Narrative: Gen.: No acute distress Head: Normocephalic. Atraumatic. EENT: Pupils equal round and reactive to light. Nose without drainage. Airway intact. Throat without injection/no exudates Cardiovascular: Regular rate and rhythm. No murmurs, rubs or gallops. Respiratory: no rales, no wheezes, good air exhagne Abdomen: Soft, nontender, nondistended. No peritoneal signs. Musculoskeletal: No gross deformities. No edema. Skin: No obvious rashes or erythema. Neuro: Sensory and motor grossly intact. Cranial nerves II through XII grossly intact. Results - Labs CBC & Chem 7: 09/08/18 06:44 09/08/18 06:44 Laboratory Results - last 24 hr 09/08/18 12:01 Total Creatine Kinase 422 H CK-MB (CK-2) 10.7 H CK-MB (CK-2) % 2.5 Troponin I Less than 0.02 L Assessment and Plan - Plan Assessment/plan: 1. COPD exacerbation Patient requiring supplemental oxygen to maintain saturations above 88% Chest x-ray negative for acute process, personally reviewed IV steroids- decreaset o q 8- change to po prednisone 20 mg bid x 5 days Duo nebs start MDIs- Spriva, albuterol and flovent- send home with this 2. Schizophrenia/bipolar disorder- clinically cooperative Patient not currently taking any medications Outpatient follow-up 3. Chronic kidney disease Creatinine 1.41, baseline Monitor renal function FEN Heart healthy diet Electrolytes: Urine replete as needed Heparin ambulate as tolerated C charitylt to assit with meds on DC Dc today states he is going to have [facility] by 09/15
[2018-09-09] MEDS ORDERED: predniSONE 20 MG Tablet PO SCH (21:00)
== END 2018-09-09 14:14 | disposition home or self-care (01) ==
LOC: NEPE 18:47 → INTOOBSV 21:37 → NEDA 21:37 → NEPGCP 09-08 00:18
PROVIDERS: ADMIT Internal Medicine; ATTEND Internal Medicine
DX: Z83.3 Family history of diabetes mellitus; E11.22 Type 2 diabetes mellitus with diabetic chronic kidney disease; F17.210 Nicotine dependence, cigarettes, uncomplicated; F20.9 Schizophrenia, unspecified; F41.9 Anxiety disorder, unspecified; N18.9 Chronic kidney disease, unspecified; Z82.49 Family history of ischemic heart disease and other diseases of the circulatory system; H91.90 Unspecified hearing loss, unspecified ear; J44.1 Chronic obstructive pulmonary disease with (acute) exacerbation; F31.9 Bipolar disorder, unspecified; Z59.0 Homelessness; R09.02 Hypoxemia; M19.90 Unspecified osteoarthritis, unspecified site; Z79.51 Long term (current) use of inhaled steroids
CPT/HCPCS: 71010; 71045; 80048; 82550; 82552; 84484; 85025; 87275; 87276; 87804; 93005; 94640; 94664; 94665; 96372; 96374; 96376; 97163; 99285; G0378; G8987; G8988; J1644; J2920; J7040

== ENCOUNTER 2018-10-31 14:09 | Inpatient (IN) ==
--- NOTE | 2018-10-31 14:32 | ED ---
HPI General Chief Complaint: Psychiatric Symptoms Stated Complaint: Psych Eval/HHPD Time Seen by Provider: 10/31/18 14:22 History of Present Illness HPI Narrative: This patient chief complaint is he wants a psychiatric evaluation. He says he is feeling depressed and he is feeling suicidal. He says his plan was to go over to his sisters and get her gone. Patient is homeless and living on the streets. He denies alcohol or drug use. Symptom severity is moderate. He reports history of schizophrenia and not on any medication. He denies hallucination. Was seen here 6 days ago and workup was done which I reviewed. no alleviating factors. Symptoms exacerbated by his homelessness. Related Data Home Medications Medication Instructions Recorded Confirmed No Known Home Medications 10/31/18 10/31/18 Allergies Allergy/AdvReac Type Severity Reaction Status Date / Time No Known Allergies Allergy Verified 10/25/18 17:41 Review of Systems ROS: all other systems reviewed are negative [facility] Medical History Medical History AAA (abdominal aortic aneurysm) (Acute) Anxiety (Acute) Arthritis (Acute) Bipolar disorder (Acute) COPD (chronic obstructive pulmonary disease) (Acute) Depression (Acute) Diabetes (Acute) Emphysema of lung (Acute) Glaucoma (Acute) Hard of hearing (Acute) Schizophrenia (Acute) Surgical History Surgical History History of thoracic aortic aneurysm repair (Acute) Family History Family History Other CAD (coronary artery disease) Diabetes mellitus Social History Social History Substance History: No History of Abuse Second Hand Smoke Exposure: Yes Smoking Status: Current every day smoker Tobacco Type: Cigarettes How Often Do You Have a Drink Containing Alcohol: Never Recent Travel in [facility] within the Last 8 Weeks: No Recent Out of Country Travel within the Last 8 Weeks: No Immunization History Tetanus Immunization: >5 Years Tetanus Immunization Year if Known: 2016 Exam Narrative Exam Narrative: GENERAL: Disheveled well-developed patient in no apparent distress. SKIN: Focused skin assessment reveals no rash and nodules. Skin is Warm and dry. HEAD: Atraumatic. Normocephalic. EYES: Pupils equal and round. No scleral icterus. No injection or drainage. ENT: No nasal bleeding or discharge. Mucous membranes pink and moist. NECK: Trachea midline. No JVD. CARDIOVASCULAR: Regular rate and rhythm. No murmur appreciated. RESPIRATORY: No accessory muscle use. Clear to auscultation. Breath sounds equal bilaterally. GASTROINTESTINAL: Abdomen soft, non-tender, nondistended. Hepatic and splenic margins not palpable. MUSCULOSKELETAL: No obvious deformities. No clubbing. No cyanosis. No edema. NEUROLOGICAL: Awake and alert. No obvious cranial nerve deficits. Motor grossly within normal limits. Normal speech. PSYCHIATRIC: Appropriate mood and affect; insight and judgment reduced . Course Initial Documented Vital Signs Temperature 98.5 F 10/31/18 14:12 Pulse Rate 98 H 10/31/18 14:12 Respiratory Rate 20 10/31/18 14:12 Blood Pressure 121/58 L 10/31/18 14:12 Pulse Oximetry 98 10/31/18 14:12 Last Documented Vital Signs Temperature 98.5 F 10/31/18 14:12 Pulse Rate 98 H 10/31/18 14:12 Respiratory Rate 10/31/18 14:12 Blood Pressure 121/58 L 10/31/18 14:12 Pulse Oximetry 98 10/31/18 14:12 Medical Decision Making MDM Narrative Medical decision making narrative: 63-year-old homeless male who complains of depression and suicidal ideation. He is a psychiatric evaluation. I ordered basic labs and alcohol and tox screen for medical clearance and have ordered psychiatric evaluation. Labs reviewed, no acute findings. Patient is medically clear for psychiatric evaluation. Medical Screen Exam Complete: Yes Emergency Medical Condition: Yes Lab Data Lab results reviewed: Yes I reviewed the patient's lab results. Result diagrams: 10/31/18 14:26 10/31/18 14:26 Lab Results 10/31/18 10/31/18 Range/Units 14:26 14:26 WBC 6.2 (4.0-11.0) th/mm3 RBC 4.03 L (4.50-5.90) mil/mm3 Hgb 12.7 L (13.0-17.0) gm/dL Hct 37.6 L (39.0-51.0) % MCV 93.1 (80.0-100.0) fL MCH 31.5 (27.0-34.0) pg MCHC 33.8 (32.0-36.0) % RDW 16.2 (11.6-17.2) % Plt Count 209 (150-450) th/mm3 MPV 7.2 (7.0-11.0) fL Prelim Diff (Auto) Slide review pending Neut % (Auto) 72.5 H (16.0-70.0) % Lymph % (Auto) 16.3 (9.0-44.0) % [place] % (Auto) 8.6 H (0.0-8.0) % Eos % (Auto) 0.3 (0.0-4.0) % Baso % (Auto) 2.3 H (0.0-2.0) % Neut # (Auto) 4.5 (1.8-7.7) th/mm3 Lymph # (Auto) 1.0 (1.0-4.8) th/mm3 [place] # (Auto) 0.5 (0.0-0.9) th/mm3 Eos # (Auto) 0.0 (0.0-0.4) th/mm3 Baso # (Auto) 0.1 (0.0-0.2) th/mm3 WBC Differential . Diff Scan Auto diff confirmed Differential Comment . Sodium 145 (136-145) meq/L Potassium 3.8 (3.5-5.1) meq/L Chloride 111 H (98-107) meq/L Carbon Dioxide 29.7 (21.0-32.0) meq/L Anion Gap 4 L (5-15) meq/L BUN 12 (7-18) mg/dL Creatinine 0.99 (0.60-1.30) mg/dL Estimated GFR 76 L (>89) mL/min Random Glucose 84 (74-106) mg/dL Calcium 8.2 L (8.5-10.1) mg/dL Total Bilirubin 0.5 (0.2-1.0) mg/dL AST 28 (15-37) U/L ALT 28 (12-78) U/L Alkaline Phosphatase 90 (45-117) U/L Total Protein 6.1 L D (6.4-8.2) g/dL Albumin 2.9 L (3.4-5.0) g/dL TSH 1.140 (0.358-3.740) uIU/mL Serum Alcohol Less than 3 (0-5) mg/dL Discharge Plan Discharge Disposition Patient Disposition: Sign Out(ED Internal Use Only) Discharge Condition Condition: Good Discharge Details Diagnosis: Medical clearance for psychiatric admission Physicians Team ED Provider: Micah Talley ED Midlevel Provider: Danii Shabazz Primary Care Provider: Primary Care Denise Bradley Rxs /Orders / Referrals /Forms Prescriptions: No Action No Known Home Medications RF: 0 Status ED Status: Medically Cleared
[2018-10-31 14:43] LABS: Baso # (Auto) 0.1 th/mm3 (0.0-0.2); Baso % (Auto) 2.3 % (0.0-2.0); Eos % (Auto) 0.3 % (0.0-4.0); Hematocrit 37.6 % (39.0-51.0); Hemoglobin 12.7 gm/dL (13.0-17.0); Lymph % (Auto) 16.3 % (9.0-44.0); Mean Corpuscular HGB Conc 33.8 % (32.0-36.0); Mean Corpuscular Hemoglobin 31.5 pg (27.0-34.0); Mean Corpuscular Volume 93.1 fL (80.0-100.0); Mean Platelet Volume 7.2 fL (7.0-11.0); Mono # (Auto) 0.5 th/mm3 (0.0-0.9); Mono % (Auto) 8.6 % (0.0-8.0); Neut # (Auto) 4.5 th/mm3 (1.8-7.7); Neut % (Auto) 72.5 % (16.0-70.0); Platelet Count 209 th/mm3 (150-450); Red Blood Count 4.03 mil/mm3 (4.50-5.90); Red Cell Distribution Width 16.2 % (11.6-17.2); White Blood Count 6.2 th/mm3 (4.0-11.0)
[2018-10-31 14:59] LABS: Alanine Aminotransferase 28 U/L (12-78); Albumin 2.9 g/dL (3.4-5.0); Anion Gap 4 meq/L (5-15); Aspartate Aminotransferase 28 U/L (15-37); Blood Urea Nitrogen 12 mg/dL (7-18); Calcium 8.2 mg/dL (8.5-10.1); Carbon Dioxide 29.7 meq/L (21.0-32.0); Chloride 111 meq/L (98-107); Glomerular Filtration Rate 76 mL/min (>89); Glucose,Random 84 mg/dL (74-106); Potassium 3.8 meq/L (3.5-5.1); Sodium 145 meq/L (136-145)
[2018-10-31 15:09] LABS: Alkaline Phosphatase 90 U/L (45-117); Total Protein 6.1 g/dL (6.4-8.2)
[2018-10-31 17:00] LABS: Amphetamine Screen,Urine Neg (Neg); Barbiturate Screen,Urine Neg (Neg); Cannabinoid Screen,Urine Neg (Neg); Cocaine Screen,Urine Neg (Neg)
[2018-10-31 17:04] LABS: Opiate Screen,Urine Neg (Neg)
[2018-11-01] MEDS ORDERED: Acetaminophen 325 MG Tablet PO PRN (09:41)
[2018-11-01] MEDS ORDERED: Aluminum/Magnesium/Simethacone Susp 30 ML UDC PO PRN (09:41)
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
--- NOTE | 2018-11-01 12:26 | P.CONIM ---
History of Present Illness Reason for Consult: COPD with shortness of breath Primary Care Provider: Dr. Kiara Smith History of Present Illness: This a 63-year-old male gentleman with a past medical history which includes AAA status post repair in [place], anxiety, bipolar , schizophrenia, COPD, tobacco abuse. Patient is currently in the psychiatric unit due to suicidal ideations. Patient is currently homeless reports this is a life stressor for him. Patient reports he has not currently on any medication for his COPD and reports his shortness of breath is at baseline. Patient known to Dr. Brito from prior treatment at [facility]. Patient was oxygen dependent at that time. Patient denies cough, chest pain nausea vomiting diarrhea constipation fevers or chills. PMH: AAA status post repair in [place], anxiety, bipolar, schizophrenia, COPD, tobacco abuse PSxH: AAA status post repair in [place] Social History: Patient currently homeless Hx of ETOH use denies current ETOG use Tobacco continues to smoke 1-2 PPD Hx polysubstance use, denies current illicit substances use FMH: mental illness and addiction FOR[facility]LY [facility] Medical History Medical History AAA (abdominal aortic aneurysm) (Acute) Anxiety (Acute) Arthritis (Acute) Bipolar disorder (Acute) COPD (chronic obstructive pulmonary disease) (Acute) Depression (Acute) Diabetes (Acute) Emphysema of lung (Acute) Glaucoma (Acute) Hard of hearing (Acute) Schizophrenia (Acute) Surgical History Surgical History History of thoracic aortic aneurysm repair (Acute) Family History Family History Other CAD (coronary artery disease) Diabetes mellitus Social History Social History Substance History: No History of Abuse Second Hand Smoke Exposure: Yes Smoking Status: Current every day smoker Tobacco Type: Cigarettes How Often Do You Have a Drink Containing Alcohol: Never Recent Travel in [facility] within the Last 8 Weeks: No Recent Out of Country Travel within the Last 8 Weeks: No Immunization History Tetanus Immunization: >5 Years Tetanus Immunization Year if Known: 2016 Medications and Allergies Allergies Allergy/AdvReac Type Severity Reaction Status Date / Time No Known Allergies Allergy Verified 10/25/18 17:41 Home Medications Medication Instructions Recorded Confirmed Type No Known Home Medications 10/31/18 10/31/18 History Active Medications: Active Medications Acetaminophen (Tylenol) 650 mg PO Q4H PRN PRN Reason: Pain 1-5 or Temp >101F Al Hydrox/Mg Hydrox/Simethicone (Mag-Al Plus Susp Liq) 30 ml PO Q6H PRN PRN Reason: DYSPEPSIA Al Hydroxide/Mg Hydroxide (Milk Of Magnesia Liq) 30 ml PO Q12H PRN PRN Reason: Mild Constipation Diphenhydramine HCl (Benadryl) 50 mg PO HS PRN PRN Reason: INSOMNIA Hydroxyzine HCl (Atarax) 50 mg PO Q6H PRN PRN Reason: ANXIETY Physical Exam Vital signs: Last Vital Signs Temp 97.6 F 10/31/18 22:59 Pulse 85 11/01/18 06:23 Resp 18 10/31/18 22:59 BP 129/62 11/01/18 06:23 Pulse Ox 92 L 11/01/18 06:23 Narrative: GENERAL: This is a thin, 63 year old male patient who appears older than stated age CARDIOVASCULAR: Regular rate and rhythm RESPIRATORY: poor air movement through out with scattered expiratory wheezing GASTROINTESTINAL: Abdomen soft, non-tender, nondistended. Normal active bowel sounds MUSCULOSKELETAL: Extremities without clubbing, cyanosis, or edema. NEURO: Alert & Oriented. Moves all ext x4 Results Labs CBC & Chem 7: 10/31/18 14:26 10/31/18 14:26 Assessment and Plan Assessment (1) Major depressive disorder, recurrent severe without psychotic features: Code(s): F33.2 - Major depressive disorder, recurrent severe without psychotic features Status: Acute Plan This a 63-year-old male gentleman with a past medical history which includes AAA status post repair in [place], anxiety, bipolar, schizophrenia, COPD, tobacco abuse. Patient is currently in the psychiatric unit due to suicidal ideations. Patient is currently homeless reports this is a life stressor for him. Patient reports he has not currently on any medication for his COPD and reports his shortness of breath is at baseline. Patient known to Dr. Brito from prior treatment at [facility]. Patient was oxygen dependent at that time. Patient denies cough, chest pain nausea vomiting diarrhea constipation fevers or chills. Bipolar Schizophrenia Suicidal ideations management per psychiatric team COPD Oxygen 2L via [place] Patient known to Dr. Brito from prior treatment at [facility]. Patient was oxygen dependent at that time. Duonebs Q6H while awake and as needed Symbicort Solu medrol 125 mg IV now, then 60 mg IV Q6H Attending Attestation The exam, history, and the medical decision-making described in the above note were completed with the assistance of the mid-level provider. I reviewed and agree with the findings presented. I attest that I had a bait-ej-trug encounter with the patient on the same day, and personally performed and documented my assessment and findings in the medical record. Patient examined. Assessment and plan formulated with Iram Driscoll PA-C. I agree with the above. Pt c/o SOB PE: lungs with poor b/l air movement and expiratory wheezine. Start IV steroids start duonebs scheduled and prn.
[2018-11-01] MEDS ORDERED: MethylPREDNISolone Sod Succinate Inj 125 MG/2 ML Vial IV.PUSH ONE (15:36)
[2018-11-01] MEDS: Budesonide-Formoterol 160/4.5 MCG 6 GM Inhaler INH SCH (15:37)
[2018-11-01] MEDS: MethylPREDNISolone Sod Succinate Inj 40 MG/ML Vial IV.PUSH SCH (23:52)
[2018-11-02] MEDS: Budesonide-Formoterol 160/4.5 MCG 6 GM Inhaler INH SCH ×3 (06:12→20:27)
[2018-11-02] MEDS: MethylPREDNISolone Sod Succinate Inj 40 MG/ML Vial IV.PUSH SCH (06:23)
--- NOTE | 2018-11-02 09:25 | P.PNIM ---
Subjective Interval history: pt seems to be less sob. iv out..refusing another. Physical Exam Vital signs: Last Vital Signs Temp 99.1 F 11/02/18 06:39 Pulse 76 11/02/18 07:52 Resp 18 11/02/18 07:52 BP 115/71 11/02/18 06:39 Pulse Ox 95 11/02/18 07:53 Narrative: GENERAL: This is a thin, 63 year old male patient who appears older than stated age CARDIOVASCULAR: Regular rate and rhythm RESPIRATORY improved air entry. GASTROINTESTINAL: Abdomen soft, non-tender, nondistended. Normal active bowel sounds MUSCULOSKELETAL: Extremities without clubbing, cyanosis, or edema. NEURO: Alert & Oriented. Moves all ext x4 Results Labs CBC & Chem 7: 10/31/18 14:26 10/31/18 14:26 Assessment and Plan Assessment (1) Major depressive disorder, recurrent severe without psychotic features: Code(s): F33.2 - Major depressive disorder, recurrent severe without psychotic features Status: Acute Plan This a 63-year-old male gentleman with a past medical history which includes AAA status post repair in [place], anxiety, bipolar, schizophrenia, COPD, tobacco abuse. Patient is currently in the psychiatric unit due to suicidal ideations. Patient is currently homeless reports this is a life stressor for him. Patient reports he has not currently on any medication for his COPD and reports his shortness of breath is at baseline. Patient known to Dr. Brito from prior treatment at [facility]. Patient was oxygen dependent at that time. Patient denies cough, chest pain nausea vomiting diarrhea constipation fevers or chills. Bipolar Schizophrenia Suicidal ideations management per psychiatric team COPD Oxygen 2L via [place] Patient known to Dr. Brito from prior treatment at [facility]. Patient was oxygen dependent at that time. Duonebs Q6H while awake and as needed Symbicort convert iv to po steroids. Progress Note: Quality VTE Deep Vein Thrombosis/Pulmonary Embolism Present on Admission: No
[2018-11-02] MEDS: predniSONE 20 MG Tablet PO SCH ×2 (11:21→20:26)
[2018-11-02] MEDS: Escitalopram 10 MG Tablet PO SCH (13:10)
--- NOTE | 2018-11-02 16:58 | P.PNPSY ---
Subjective Remarks: Patient seen for follow up; chart reviewed. Discussion with nursing staff reported that patient isolative, mostly bed, poor motivation. Patient was found lying on hospital bed, calm, initially superficially cooperative but more engaging throughout interview. Patient states that he has been feeling depressed with SI as well as endorsing command AH telling him to kill himself along with stating that he felt like killing himself if he had to continue to live homeless. He mentions having been asked to leave his prior [facility] but did not elaborate and has been homeless for the past two weeks. He continues to endorse SI, AH of his mother's voice calling his name, agrees to adhere to treatment and willing to be referred to [facility]. Review of Systems All other systems reviewed negative except as stated in HPI Mental Status Examination Appearance: Disheveled Consciousness: Alert Orientation: x4 Motor Activity: Normal gait Speech: Unremarkable Language: Adequate Fund of Knowledge: Adequate Attention and Concentration: Adequate Memory: Unremarkable (Fair) Mood: Sad Affect: Irritable (sightly), Other (Decreased range and intensity) Thought Process & Associations: Intact Thought Content: Appropriate Hallucination Type: None Delusion Type: None Suicidal Ideation: Yes Suicidal Intention: No Homicidal Ideation: No Homicidal Plan: No Homicidal Intention: No Insight: Fair Judgment: Impulsive Assessment and Plan - Assessment (1) Major depressive disorder, recurrent severe without psychotic features Code(s): F33.2 - Major depressive disorder, recurrent severe without psychotic features Status: Acute - Plan Plan: Patient continues to endorse SI and vague AH, poor motivation. Will start patient on escitalopram 10mg daily for depression, will continue to monitor AH report as patient does not appear to be responding to internal stimuli and may be endorsing perceptual disturbances to embelish symptoms. Will continue to monitor mood and behavior, encourage patient to continue with participation in hygiene and groups and activities. Discharge planning in progress. Justification for Continued Inpatient Stay: At risk for further decompensation at lower level of care. Request Healthcare Surrogate/Guardian Advocate?: No
[2018-11-03] MEDS: predniSONE 20 MG Tablet PO SCH ×2 (08:10→20:42)
[2018-11-03] MEDS: Budesonide-Formoterol 160/4.5 MCG 6 GM Inhaler INH SCH ×2 (08:10→20:42)
[2018-11-03] MEDS: Escitalopram 10 MG Tablet PO SCH (08:10)
--- NOTE | 2018-11-03 08:48 | P.PNIM ---
Subjective Interval history: breathing is much -better Physical Exam Vital signs: Last Vital Signs Temp 98.7 F 11/03/18 06:00 Pulse 85 11/03/18 07:37 Resp 18 11/03/18 07:37 BP 106/58 L 11/03/18 06:00 Pulse Ox 95 11/03/18 07:38 Narrative: heart reg lung good air entry abd s/nt ext no edema Results Labs CBC & Chem 7: 10/31/18 14:26 10/31/18 14:26 Assessment and Plan Assessment (1) Major depressive disorder, recurrent severe without psychotic features: Code(s): F33.2 - Major depressive disorder, recurrent severe without psychotic features Status: Acute Plan This a 63-year-old male gentleman with a past medical history which includes AAA status post repair in [place], anxiety, bipolar, schizophrenia, COPD, tobacco abuse. Patient is currently in the psychiatric unit due to suicidal ideations. Patient is currently homeless reports this is a life stressor for him. Patient reports he has not currently on any medication for his COPD and reports his shortness of breath is at baseline. Patient known to Dr. Brito from prior treatment at [facility]. Patient was oxygen dependent at that time. Patient denies cough, chest pain nausea vomiting diarrhea constipation fevers or chills. Bipolar Schizophrenia Suicidal ideations management per psychiatric team COPD cont prednisone taper at tx cont nebs. o2 as needed. pt medically stable. Progress Note: Quality VTE Deep Vein Thrombosis/Pulmonary Embolism Present on Admission: No
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
[2018-11-04] MEDS: predniSONE 20 MG Tablet PO SCH ×2 (08:12→20:39)
[2018-11-04] MEDS: Escitalopram 10 MG Tablet PO SCH (08:12)
[2018-11-04] MEDS: Budesonide-Formoterol 160/4.5 MCG 6 GM Inhaler INH SCH (08:13)
--- NOTE | 2018-11-04 13:01 | P.PNPSY ---
Subjective Remarks: Patient seen for follow-up, chart reviewed. Discussion with nursing staff reported that patient see that she has some due to concern about discharge plan. Patient was found lying in hospital bed noted B, cooperative. Patient with good affect and good eye contact. Patient state he slept well, adequate appetite discharge as well. He states his mood has been good, feeling less depressed denying suicide ideations. Patient states that he is waiting to hear from a regional sales representative from assisted living facility today who was planned for visit with him today. Review of Systems All other systems reviewed negative except as stated in HPI Mental Status Examination Appearance: Appropriate Consciousness: Alert Orientation: x4 Motor Activity: Normal gait Speech: Unremarkable Language: Adequate Fund of Knowledge: Adequate Attention and Concentration: Adequate Memory: Unremarkable (Fair) Mood: Good Affect: Appropriate Thought Process & Associations: Intact Thought Content: Appropriate Hallucination Type: None Delusion Type: None Suicidal Ideation: Yes (denies today) Suicidal Plan: No Suicidal Intention: No Homicidal Ideation: No Homicidal Plan: No Homicidal Intention: No Insight: Fair Judgment: Impulsive Assessment and Plan - Assessment (1) Major depressive disorder, recurrent severe without psychotic features Code(s): F33.2 - Major depressive disorder, recurrent severe without psychotic features Status: Acute - Plan Plan: Patient noted to have increased improvement in mood reporting lessening of depressed mood. Patient denies any suicidal ideations. Patient has been managing adequate hygiene, motivated attending groups. Patient waiting to meet with her visited from assisted living facility for possible placement post discharge. If patient was accepted to this assisted living setting patient for discharge with appropriate follow-up thereafter. Continue to monitor mood and behavior. Discharge planning in progress. Justification for Continued Inpatient Stay: At risk of further decompensation at lower level care. Request Healthcare Surrogate/Guardian Advocate?: No
[2018-11-05 06:38] VITALS: BP 129/74; TEMP 98.8; O2SAT 93
[2018-11-05] MEDS: Escitalopram 10 MG Tablet PO SCH (08:28)
[2018-11-05] MEDS: Budesonide-Formoterol 160/4.5 MCG 6 GM Inhaler INH SCH (08:30)
[2018-11-05] MEDS ORDERED: predniSONE 20 MG Tablet PO SCH (09:00)
[2018-11-05 09:03] VITALS: PULSE 75; RESP 16
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
== END 2018-11-05 14:20 | DRG 885 ==
LOC: NEPD 14:09 → NEPJ 11-01 11:00 → NEDA 11-01 11:13 → H4EA 11-01 11:27
PROVIDERS: ADMIT Student in an Organized Health Care Education/Training Program; ATTEND Student in an Organized Health Care Education/Training Program
CPT/HCPCS: 80053; 80307; 84443; 85025; 90791; 94640; 94664; 94665; 97162; 97530; 99285; J2920; J2930; J7506; J7512; Q0163